=== PATIENT | male | born 1955 | race Caucasian/White ===

== ENCOUNTER 2020-02-12 11:23 | Outpatient (REF) | payer OTHER, SELFPAY ==
[2020-02-12 15:24] LABS: Prostate Specific Antigen 16.94 ng/mL (<0.05-4.0)
[2020-02-18 10:27] LABS: Testosterone, Total 94 ng/dL (250-1100)
== END 2020-02-12 11:24 | disposition home or self-care (01) ==
LOC: HO.HMGCLDS 11:23
PROVIDERS: Visit Provider Urology
DX: Z20.828 Contact with and (suspected) exposure to other viral communicable diseases (principal)
CPT/HCPCS: 84153; 84403

== ENCOUNTER → 2020-02-27 11:41 | Outpatient (BNVA) | payer OTHER, SELFPAY | PROVIDERS: PCP Internal Medicine; Visit Provider Urology | DX: C61 Malignant neoplasm of prostate (principal); R97.21 Rising PSA following treatment for malignant neoplasm of prostate | CPT/HCPCS: Q3014 ==

== ENCOUNTER 2020-03-17 10:04 | Outpatient (REF) | payer OTHER, SELFPAY ==
--- NOTE | 2020-03-17 10:24 | CT_ITS ---
EXAMINATION: CT ABDOMEN AND PELVIS WITHOUT CONTRAST CLINICAL INFORMATION: Rising PSA following treatment for malignant neoplasm of prostate. COMPARISON: CT abdomen and pelvis 08/25/2018. TECHNIQUE: Multidetector volumetric imaging was performed from the superior aspect of the liver through the pubic symphysis. Sagittal and coronal reformatted images were obtained on the technologist's workstation. This CT examination was performed using dose optimization techniques as appropriate, variously including the following: *Automated exposure control *Adjustment of mA and/or kV according to patient size (this includes techniques or standardized protocols for targeted exams where dose is matched to indication/reason for exam; i.e. extremities or head) *Use of iterative reconstruction technique DLP: 907 mGy-cm FINDINGS: LUNG BASES: The lung bases are clear. The heart size is normal. Mild atherosclerotic calcification of mitral and aortic valve is noted. No pericardial effusion seen. LIVER, GALLBLADDER, AND BILIARY TREE: The liver is normal in size, shape, and attenuation. No focal hepatic lesion or biliary ductal dilatation is present. The gallbladder is unremarkable with no evidence of radiopaque gallstones, gallbladder wall thickening, or obvious pericholecystic inflammatory changes. PANCREAS: Unremarkable. SPLEEN: Unremarkable. ADRENAL GLANDS: The 2 lesions in the left adrenal gland. The lesion along the medial limb measures 3.4 x 1.9 x 3.5 cm and 5.2 Hounsfield units. The left adrenal gland lateral limb lesion measures 1.4 x 1.3 x 2.0 cm and 14 Hounsfield units. The right adrenal gland appears unremarkable. KIDNEYS AND URETERS: The kidneys are normal in size, shape, and attenuation. No hydronephrosis, hydroureter, or calculi seen. No perinephric stranding. There is vascular calcification in the right hilum. There are peripelvic cysts upper, mid and lower pole. BLADDER: Unremarkable. GASTROINTESTINAL TRACT: There is diffuse sigmoid and scattered rest of the colon diverticulosis without mural thickening or pericolic fat stranding. The small-bowel loops are normal caliber. The appendix is not seen. No free air or free fluid seen. ABDOMINAL WALL: There are periumbilical small hernias containing intraperitoneal fat. LYMPH NODES: Normal. VASCULAR: Unremarkable. PELVIC VISCERA: No free air or free fluid seen. There are small maura seen in the prostate gland likely from previous intervention. The prostate gland appears to be normal size. The periprostatic fat planes are preserved. OSSEOUS STRUCTURES: There are degenerative disc changes L4-L5 and L5-S1 disc levels with vacuum disc phenomena and ventral and posterior spondylosis. There are inferior endplate Schmorl's node L4, L3 vertebra. No lytic or sclerotic process seen. CT/CT abdomen pelvis wo con IMPRESSION: Left adrenal gland 2 lesions, the larger lesion medial limb measuring 3.5 cm, previously it measured 2.4 cm. The lateral limb lesion measures 2.0 cm and is stable. Diffuse sigmoid and scattered rest of the colon diverticulosis without diverticulitis. Peripelvic left renal cysts.
== END 2020-03-17 10:05 | disposition home or self-care (01) ==
LOC: HO.CT 10:04
PROVIDERS: Visit Provider Urology
DX: R97.21 Rising PSA following treatment for malignant neoplasm of prostate (principal); N40.1 Benign prostatic hyperplasia with lower urinary tract symptoms; N13.8 Other obstructive and reflux uropathy
CPT/HCPCS: 36415; 74176; 84153

== ENCOUNTER → 2020-03-25 09:24 | Outpatient (REF) | payer OTHER, SELFPAY ==
--- NOTE | 2020-03-25 09:27 | NM_ITS ---
EXAMINATION: NM BONE SCAN OF THE WHOLE BODY CLINICAL INFORMATION: Malignant neoplasm of prostate. COMPARISON: The previous bone scan dated 08/29/2018 is available for comparison. No recent radiographs are available for comparison. The diagnostic CT scan of the abdomen and pelvis, dated 03/17/2020, is available for comparison. TECHNIQUE: Multiple gamma scintillation camera images of the whole body were performed 2.5 hours following the intravenous administration of 40 mCi Tc-99m MDP. FINDINGS: In the head, there is mildly increased activity in the paranasal regions, with a focus slightly more prominent to the left of midline, likely related to sinus disease. In the thoracic cage and upper extremities, there is mildly increased activity acromioclavicular and sternoclavicular joints bilaterally and in the lateral subacromial region of the right humeral head. There is also mildly increased activity in the left glenohumeral articulation. In the spine, there is mildly increased activity in the right posterior elements at L4-L5, and there is mildly increased activity in the left side of the mid cervical spine, likely in the posterior elements also, all probably due to facet arthropathy. In the pelvis, no significant abnormalities are present. In the lower extremities, there is mildly increased activity in the medial malleolus of the left ankle and in mild foci in the proximal to mid feet bilaterally. No other definite bony abnormalities are noted. The urinary bladder and faint visualization of both kidneys are noted. Compared to the previous scan dated 08/29/2018, there has not been a significant change. NM/TX bone scan whole body IMPRESSION: Mild nonspecific abnormalities are noted as described above and these are all likely arthritic or traumatic in etiology. None of these abnormalities is strongly suspicious for metastatic disease.
== END ==
LOC: HO.NUCMED 09:24
PROVIDERS: Visit Provider Urology
DX: R97.21 Rising PSA following treatment for malignant neoplasm of prostate (principal); C61 Malignant neoplasm of prostate; C79.51 Secondary malignant neoplasm of bone
CPT/HCPCS: 78306; A9503

== ENCOUNTER → 2020-04-03 11:23 | Outpatient (BNVA) | payer OTHER, SELFPAY | PROVIDERS: Visit Provider Urology | DX: R97.21 Rising PSA following treatment for malignant neoplasm of prostate (principal); Z85.46 Personal history of malignant neoplasm of prostate | CPT/HCPCS: Q3014 ==

== ENCOUNTER → 2020-04-15 10:52 | Outpatient (BNVA) | payer OTHER, SELFPAY | PROVIDERS: Visit Provider Urology | DX: R97.21 Rising PSA following treatment for malignant neoplasm of prostate (principal); C61 Malignant neoplasm of prostate | CPT/HCPCS: 96402; 99212; J9217 ==

== ENCOUNTER 2020-05-09 07:47 | Outpatient (REF) | payer OTHER, SELFPAY ==
[2020-05-09 12:19] LABS: Prostate Specific Antigen 21.97 ng/mL (<0.05-4.0)
[2020-05-15 16:52] LABS: Testosterone, Total 20 ng/dL (250-1100)
== END 2020-05-09 07:48 | disposition home or self-care (01) ==
LOC: HO.HMGCLDS 07:47
PROVIDERS: Visit Provider Urology
DX: R97.21 Rising PSA following treatment for malignant neoplasm of prostate (principal); N40.1 Benign prostatic hyperplasia with lower urinary tract symptoms; N13.8 Other obstructive and reflux uropathy; Z12.5 Encounter for screening for malignant neoplasm of prostate
CPT/HCPCS: 36415; 84153; 84403

== ENCOUNTER → 2020-05-27 10:58 | Outpatient (BNVA) | payer OTHER, SELFPAY | PROVIDERS: Visit Provider Urology | DX: Z13.89 Encounter for screening for other disorder (principal) | CPT/HCPCS: 99212 ==

== ENCOUNTER 2020-06-23 09:29 | Outpatient (REF) | payer OTHER, SELFPAY ==
--- NOTE | ~2020-06-23 | US_ITS ---
EXAMINATION: US SCROTUM CLINICAL INFORMATION: Testicular pain. Malignant neoplasm of prostate. COMPARISON: None TECHNIQUE: A sonogram of the scrotum was performed assessing koehler-scale appearance and color Doppler flow. Spectral Doppler analysis of the arterial and venous flow were performed in the testes bilaterally. FINDINGS: RIGHT: Right testicle measures 4.0 x 2.0 x 2.6 cm, volume 10.9 mL. No focal testicular parenchymal lesions are visualized. Spectral Doppler analysis of the arterial and venous flow is normal in the right testis. Right epididymal head is normal in size. There are 3 epididymal head cysts, largest measuring 6 x 5 x 5 mm. No right varicocele is seen. There is a small right hydrocele. Right epididymal Doppler flow is normal. LEFT: Left testicle measures 4.0 x 1.8 x 2.5 cm, volume 10.4 mL. No focal testicular parenchymal lesions are visualized. Spectral Doppler analysis of the arterial and venous flow is normal in the left testis. Left epididymal head is normal in size. No left hydrocele or varicocele is seen. Left epididymal Doppler flow is normal. US/US scrotum IMPRESSION: Small right epididymal head cysts. Small right hydrocele.
[2020-06-23 12:13] LABS: Prostate Specific Antigen 47.29 ng/mL (<0.05-4.0)
[2020-06-27 14:51] LABS: Testosterone, Total 132 ng/dL (250-1100)
== END 2020-06-23 09:30 | disposition home or self-care (01) ==
LOC: HO.HMGCX 09:29
PROVIDERS: Visit Provider Urology
DX: Z12.5 Encounter for screening for malignant neoplasm of prostate (principal); C61 Malignant neoplasm of prostate; N40.1 Benign prostatic hyperplasia with lower urinary tract symptoms; N13.8 Other obstructive and reflux uropathy; N50.819 Testicular pain, unspecified
CPT/HCPCS: 36415; 76870; 84153; 84403

== ENCOUNTER → 2020-06-26 08:44 | Outpatient (BNVA) | payer OTHER, SELFPAY | PROVIDERS: Visit Provider Urology | DX: Z13.89 Encounter for screening for other disorder (principal) | CPT/HCPCS: Q3014 ==

== ENCOUNTER 2020-09-29 10:19 | Outpatient (REF) | payer OTHER, SELFPAY ==
[2020-09-29 12:50] LABS: Prostate Specific Antigen < 0.05 ng/mL (<0.05-4.0)
== END 2020-09-29 10:20 | disposition home or self-care (01) ==
LOC: HO.HMGCLDS 10:19
PROVIDERS: Visit Provider Urology
DX: Z12.5 Encounter for screening for malignant neoplasm of prostate (principal); N40.1 Benign prostatic hyperplasia with lower urinary tract symptoms; N13.8 Other obstructive and reflux uropathy; C61 Malignant neoplasm of prostate
CPT/HCPCS: 36415; 84153

== ENCOUNTER → 2020-10-07 10:06 | Outpatient (BNVA) | payer OTHER, SELFPAY | PROVIDERS: PCP Internal Medicine; Visit Provider Urology | DX: R97.21 Rising PSA following treatment for malignant neoplasm of prostate (principal); C61 Malignant neoplasm of prostate | CPT/HCPCS: 96402; 99212; J9217 ==

== ENCOUNTER 2020-12-01 08:14 | Inpatient (IN) | payer OTHER, SELFPAY ==
[2020-12-01] VITALS (13 sets, daily range): BP systolic 120–177; BP diastolic 61–96; PULSE 76–93; RESP 16–18; TEMP 36.5–37.4; O2SAT 94–99; BMI 33.9
--- NOTE | ~2020-12-01 | CT_ITS ---
EXAMINATION: CT ABDOMEN AND PELVIS WITH CONTRAST CLINICAL INFORMATION: Right lower quadrant pain. COMPARISON: CT abdomen and pelvis 03/17/2020 TECHNIQUE: Multidetector volumetric images were obtained from the superior aspect of the liver through the pubic symphysis following administration 85 mL of Omnipaque 350 intravenous contrast. Sagittal and coronal reformatted images were obtained on the technologist's workstation. Oral contrast: No This CT examination was performed using dose optimization techniques as appropriate, variously including the following: *Automated exposure control *Adjustment of mA and/or kV according to patient size (this includes techniques or standardized protocols for targeted exams where dose is matched to indication/reason for exam; i.e. extremities or head) *Use of iterative reconstruction technique DLP: 797 mGy-cm FINDINGS: LUNG BASES: There is a right basilar atelectasis. The heart size is normal. LIVER, GALLBLADDER, AND BILIARY TREE: The liver is normal in size, shape, and attenuation. No focal hepatic lesion or biliary ductal dilatation is present. The gallbladder is unremarkable with no evidence of radiopaque gallstones, gallbladder wall thickening, or obvious pericholecystic inflammatory changes. PANCREAS: Unremarkable. SPLEEN: Unremarkable. ADRENAL GLANDS: There are 2 left adrenal lesions the largest along the medial limb measures 3.7 x 2.3 cm and 29 Hounsfield units. The smaller lesion lateral limb measures 1.8 x 1.4 cm and 44 Hounsfield units. The right adrenal gland appears normal. KIDNEYS AND URETERS: The kidneys are normal in size, shape, and attenuation. No hydronephrosis, hydroureter, or calculi seen. No perinephric stranding. BLADDER: The bladder is nondistended and appears unremarkable. GASTROINTESTINAL TRACT: There is diffuse colonic diverticulosis without diverticulitis. There is scattered stool in colon. The appendix is diffusely enlarged without appendicolith. It measures 1.5 cm in diameter with adjacent. There is angela appendix fat stranding suggestive of acute appendicitis. There is no abscess. The small bowel loops are normal caliber. No free air or free fluid seen. ABDOMINAL WALL: No significant hernia is appreciated. LYMPH NODES: Normal. VASCULAR: There is mild atherosclerosis of abdominal aorta without aneurysmal dilatation. Origin of celiac, superior mesenteric and inferior mesenteric artery appears unremarkable. PELVIC VISCERA: Unremarkable. OSSEOUS STRUCTURES: There are degenerative disc changes L4-L5 and L5-S1 disc levels with endplate Schmorl's node L3, L4-L5 vertebra. Vacuum disc phenomena with spondylosis seen at the L5-S1 disc levels with spondylosis of throughout the ventral lumbar spine. CT/CT abdomen pelvis w con IMPRESSION: Findings suggestive of acute appendicitis. No evidence of appendicolith, abscess or free air. No bowel obstruction. Diffuse colonic diverticulosis without diverticulitis. Results were called by phone to Carrol SPENCER in the ER at 11:17 AM
[2020-12-01] MEDS: 0.9 % Sodium Chloride 1,000 ML 999 ML IVCONT (09:15)
[2020-12-01 09:16] LABS: MANUAL DIFF FLAG NO
[2020-12-01 09:18] LABS: Basophils Percent Auto 0.2 % (0-2); Eosinophils Absolute Auto 0.1 X10*3/uL (0.0-0.4); Eosinophils Percent Auto 0.6 % (0-4); Hematocrit 39.1 % (42-52); Hemoglobin 13.1 g/dl (14.0-18.0); Imm Gran Abs Auto 0.07 X10*3/uL (0.00-0.03); Imm Gran Pct Auto 0.6 % (0.0-0.4); Lymphocytes Percent Auto 8.2 % (20-40); Mean Corpuscular HGB Conc 33.5 g/dl (31.0-36.0); Mean Corpuscular Hemoglobin 28.8 pg (27.0-33.0); Mean Corpuscular Volume 85.9 fL (80-98); Monocytes Absolute Auto 0.9 X10*3/uL (0.1-1.2); Monocytes Percent Auto 7.1 % (2-11); Neutrophils Absolute Auto 10.3 X10*3/uL (2.0-8.3); Neutrophils Percent Auto 83.3 % (45-73); Platelet Count 229 X10*3/uL (160-400); Red Blood Count 4.55 X10*6/uL (4.60-5.80); Red Cell Distribution Width 14.2 % (11.0-16.0); White Blood Count 12.4 X10*3/uL (4.8-10.8)
[2020-12-01] MEDS: ondansetron HCL 4 MG/2 ML VIAL IVPUSH (09:19)
[2020-12-01 09:47] LABS: Lipase 9 U/L (8-78)
[2020-12-01 09:48] LABS: Alanine Aminotransferase 12 U/L (0-40); Albumin Level 4.3 g/dL (3.5-5.0); Alkaline Phosphatase 66 U/L (39-117); Anion Gap 14 (12-20); Aspartate Amino Transferase 12 U/L (5-37); Bilirubin Direct 0.3 mg/dL (0.0-0.5); Bilirubin Total 0.6 mg/dL (0.0-1.0); Blood Urea Nitrogen 9 mg/dL (9-16); Calcium 9.6 mg/dL (8.4-10.2); Carbon Dioxide 23 mmol/L (22-29); Chloride 106 mmol/L (96-108); Creatinine Clr Calc Pharmacy 136.7; Estimated Glomerular Filt Rate > 60; Glucose Random 110 mg/dL (60-115); Magnesium 2.2 mg/dL (1.6-2.6); Potassium 4.2 mmol/L (3.3-5.1); Sodium 139 mmol/L (135-145); Total Protein 6.6 g/dL (6.5-8.0)
[2020-12-01] MEDS: iohexoL 350 MG/ML 100 ML INFUS..BTL 85 ML IV (10:42)
--- NOTE | 2020-12-01 11:06 | PC.NURSE ---
Pt resting in NAD. Awaiging CT scan results. Pt aware that this is what we are waiting for at this time. VSS
--- NOTE | 2020-12-01 11:12 | ED.ABDPAIN ---
HPI - Abdominal Pain General Chief Complaint: Abdominal Pain Stated Complaint: thigh pain Time Seen by Provider: 12/01/20 08:51 Source: patient Mode of arrival: ambulatory History of Present Illness HPI narrative: 65-year-old male with past medical history of COPD, bladder outflow obstruction, nocturia, prostate CA s/p XRT completed in 2019 currently on Xtandi to the ED complaining of RLQ abdominal pain since last night with associated nausea and lightheadedness from pain. Reports lower abdominal pressure and mild dysuria. Denies vomiting, diarrhea/constipation, fever, chills, urinary frequency, flank pain MD elicited complaint: abdominal pain Related Data Home Medications Medication Instructions Recorded Confirmed acetaminophen 500 mg tablet 1,000 mg PO Q8H PRN 02/27/20 apixaban 5 mg tablet 5 mg PO BID 02/27/20 dutasteride 0.5 mg capsule 0.5 mg PO DAILY 02/27/20 ezetimibe 10 mg tablet 10 mg PO DAILY 02/27/20 fluocinonide 0.05 % topical TOPICAL BID PRN 02/27/20 ointment rosuvastatin 10 mg tablet 10 mg PO DAILY 02/27/20 tamsulosin 0.4 mg capsule 0.4 mg PO DAILY 02/27/20 triamcinolone acetonide 0.025 % appl TOPICAL BID 02/27/20 topical cream umeclidinium 62.5 mcg-vilanterol ea INHALATION 02/27/20 25 mcg/actuation powdr for inhalation albuterol sulfate 90 mcg/actuation 0 mcg INHALATION 05/27/20 aerosol inhaler ammonium lactate 12 % topical cream 1 appl TOPICAL BID 05/27/20 doxycycline hyclate 100 mg tablet 100 mg PO BID 05/27/20 fluticasone 250 mcg-salmeterol 50 1 ea INHALATION BID 05/27/20 mcg/dose blistr powdr for inhalation loratadine 10 mg tablet 10 mg PO DAILY 05/27/20 triamcinolone acetonide 0.1 % TOPICAL 05/27/20 topical ointment umeclidinium 62.5 mcg/actuation 1 inh INHALATION DAILY 05/27/20 blister powder for inhalation Previous Rx's Medication Instructions Recorded bicalutamide 50 mg tablet 50 mg PO DAILY 30 Days #30 tab 04/29/20 enzalutamide 40 mg capsule (Xtandi) 160 mg PO DAILY 90 Days #360 cap 04/20/21 tamsulosin 0.4 mg capsule 0.8 mg PO DAILY 90 Days #180 cap 10/07/20 Allergies Allergy/AdvReac Type Severity Reaction Status Date / Time No Known Allergies Allergy Verified 10/07/20 10:40 Review of Systems Review of Systems Constitutional: No Fever, No Fatigue, No Malaise ENT/Mouth: No Ear Pain, No Nasal Congestion,No sore throat, No Rhinorrhea, No Swallowing Difficulty Eyes: No Eye Pain, No Swelling, No Discharge Cardiovascular: No Chest Pain, No SOB, No Orthopnea, No Edema, No Palpitations Respiratory: No Cough, No Dyspnea Gastrointestinal: + Nausea, No Vomiting, No Diarrhea, No Constipation, + Abdominal pain Genitourinary: + Dysuria, No Urinary Frequency, No Hematuria, No Flank Pain, No Urinary Flow Changes Musculoskeletal: No joint pain, No Myalgias, No Joint Swelling Skin: No Skin Lesions, No rash Neuro: No Weakness, No Numbness, N No Headache Yes all other systems are reviewed and are negative Physical Exam Vital Signs: Vital Signs: Last Vital Signs Temp 97.9 F 12/01/20 08:22 Pulse 77 12/01/20 11:03 Resp 18 12/01/20 11:03 BP 140/79 H 12/01/20 11:03 Pulse Ox 96 12/01/20 11:03 Body Mass Index 33.9 Const: General: cooperative and healthy appearing Orientation/consciousness: patient oriented x3 Limitations: no limitations HENMT: Head: Yes normal to inspection Ears: hearing grossly normal bilaterally General nose exam: Normal external nose present Face and sinus: Yes normal facial exam Eyes: General: appearance normal, both eyes and all related structures EOM: EOMs intact bilaterally Neck: Neck: Yes normal visual inspection and Yes no meningeal signs Resp: Effort & Inspection: normal respiratory effort and no respiratory distress Cardio: Rate: regular rate GI: Inspection: Yes normal to inspection Palpation (GI): Soft to palpation, Tenderness to palpation present (GI) in the RLQ, no guarding and not rigid : General: Yes no CVA tenderness Back/Spine/Pelvis: Back: no CVA tenderness Skin: Rashes: no rashes Wounds: no wounds Neuro: General: patient oriented x3 and no meningeal signs Gait exam (Neuro): Normal gait present Extrem: General: Yes normal to inspection Course Course Course Narrative: -mild leukocytosis of 12.4, H&H stable, labs otherwise unremarkable -UA negative -1127--CT abdomen pelvis w con IMPRESSION: Findings suggestive of acute appendicitis. No evidence of appendicolith, abscess or free air. No bowel obstruction. ? Diffuse colonic diverticulosis without diverticulitis. >> case discussed with surgery Dr. Dillon, plan is for admission MDM - Abdominal Pain MDM Narrative Medical decision making narrative: 65-year-old male with past medical history of COPD, bladder outflow obstruction, nocturia, prostate CA s/p XRT completed in 2019 currently on Xtandi to the ED complaining of RLQ abdominal pain since last night with associated nausea and lightheadedness from pain. On exam VSS, NAD, nontoxic appearing, abdomen soft the RLQ TTP, no rebound or guarding, no CVAT. Concern for appendicitis vs ? Renal stone. Low concern for pyelo, diverticulitis, or testicular torsion/orchitis/epididymitis Plan: Labs, UA, CT AP, IVF, symptomatic treatment, reassess Medical Records Attestation: I reviewed the patient's medical records. Lab Data Attestation: I reviewed the patient's lab results. Result diagrams: 12/01/20 09:13 12/01/20 09:13 Labs: Lab Results 12/01/20 12/01/20 12/01/20 Range/Units 09:12 09:13 09:13 WBC 12.4 H (4.8-10.8) X10*3/uL RBC 4.55 L (4.60-5.80) X10*6/uL Hgb 13.1 L (14.0-18.0) g/dl Hct 39.1 L (42-52) % MCV 85.9 (80-98) fL MCH 28.8 (27.0-33.0) pg MCHC 33.5 (31.0-36.0) g/dl RDW 14.2 (11.0-16.0) % Plt Count 229 (160-400) X10*3/uL MPV 10.0 (9.4-12.4) fL Immature Gran % (Auto) 0.6 H (0.0-0.4) % Neut % (Auto) 83.3 H (45-73) % Lymph % (Auto) 8.2 L (20-40) % [place] % (Auto) 7.1 (2-11) % Eos % (Auto) 0.6 (0-4) % Baso % (Auto) 0.2 (0-2) % Lymph # (Auto) 1.0 L (1.2-4.9) X10*3/uL [place] # (Auto) 0.9 (0.1-1.2) X10*3/uL Eos # (Auto) 0.1 (0.0-0.4) X10*3/uL Baso # (Auto) 0.0 (0.0-0.2) X10*3/uL Abs Immat Gran (auto) 0.07 H (0.00-0.03) X10*3/uL Absolute Neuts (auto) 10.3 H (2.0-8.3) X10*3/uL Absolute Nucleated RBC 0.000 (0.0-0.012) X10*3/uL Nucleated RBC % (auto) 0.0 (0.0-0.2) /100WBC Sodium 139 (135-145) mmol/L Potassium 4.2 (3.3-5.1) mmol/L Chloride 106 (96-108) mmol/L Carbon Dioxide 23 (22-29) mmol/L Anion Gap 14 (12-20) BUN 9 (9-16) mg/dL Creatinine 0.70 (0.5-1.4) mg/dL Estim Creat Clear Calc 136.7 Estimated GFR > 60 Random Glucose 110 (60-115) mg/dL Calcium 9.6 (8.4-10.2) mg/dL Magnesium 2.2 (1.6-2.6) mg/dL Total Bilirubin 0.6 (0.0-1.0) mg/dL Direct Bilirubin 0.3 (0.0-0.5) mg/dL AST 12 (5-37) U/L ALT 12 (0-40) U/L Alkaline Phosphatase 66 (39-117) U/L Total Protein 6.6 (6.5-8.0) g/dL Albumin 4.3 (3.5-5.0) g/dL Lipase 9 (8-78) U/L Urine Color Urine Appearance Urine pH (5.0-8.0) Ur Specific Leon (1.005-1.025) Urine Protein (NEG-TRACE) MG/DL Urine Glucose (UA) (NEG) MG/DL Urine Ketones (NEG) MG/DL Urine Blood (NEG) Urine Nitrite (NEG) Ur Leukocyte Esterase (NEG) 12/01/20 Range/Units 11:05 WBC (4.8-10.8) X10*3/uL RBC (4.60-5.80) X10*6/uL Hgb (14.0-18.0) g/dl Hct (42-52) % MCV (80-98) fL MCH (27.0-33.0) pg MCHC (31.0-36.0) g/dl RDW (11.0-16.0) % Plt Count (160-400) X10*3/uL MPV (9.4-12.4) fL Immature Gran % (Auto) (0.0-0.4) % Neut % (Auto) (45-73) % Lymph % (Auto) (20-40) % [place] % (Auto) (2-11) % Eos % (Auto) (0-4) % Baso % (Auto) (0-2) % Lymph # (Auto) (1.2-4.9) X10*3/uL [place] # (Auto) (0.1-1.2) X10*3/uL Eos # (Auto) (0.0-0.4) X10*3/uL Baso # (Auto) (0.0-0.2) X10*3/uL Abs Immat Gran (auto) (0.00-0.03) X10*3/uL Absolute Neuts (auto) (2.0-8.3) X10*3/uL Absolute Nucleated RBC (0.0-0.012) X10*3/uL Nucleated RBC % (auto) (0.0-0.2) /100WBC Sodium (135-145) mmol/L Potassium (3.3-5.1) mmol/L Chloride (96-108) mmol/L Carbon Dioxide (22-29) mmol/L Anion Gap (12-20) BUN (9-16) mg/dL Creatinine (0.5-1.4) mg/dL Estim Creat Clear Calc Estimated GFR Random Glucose (60-115) mg/dL Calcium (8.4-10.2) mg/dL Magnesium (1.6-2.6) mg/dL Total Bilirubin (0.0-1.0) mg/dL Direct Bilirubin (0.0-0.5) mg/dL AST (5-37) U/L ALT (0-40) U/L Alkaline Phosphatase (39-117) U/L Total Protein (6.5-8.0) g/dL Albumin (3.5-5.0) g/dL Lipase (8-78) U/L Urine Color YELLOW Urine Appearance CLEAR Urine pH 5.5 (5.0-8.0) Ur Specific Leon >= 1.030 H (1.005-1.025) Urine Protein NEG (NEG-TRACE) MG/DL Urine Glucose (UA) NEG (NEG) MG/DL Urine Ketones NEG (NEG) MG/DL Urine Blood NEG (NEG) Urine Nitrite NEG (NEG) Ur Leukocyte Esterase NEG (NEG) Discharge Plan Discharge Clinical Impression: Acute appendicitis Patient Disposition: Admitted As Inpatient Prescriptions: No Action bicalutamide 50 mg tablet 50 mg PO DAILY 30 Days Qty: 30 RF: 2 Xtandi 40 mg capsule 160 mg PO DAILY 90 Days Qty: 360 RF: 3 tamsulosin 0.4 mg capsule 0.8 mg PO DAILY 90 Days Qty: 180 RF: 2 rosuvastatin 10 mg tablet 10 mg PO DAILY RF: 0 fluocinonide 0.05 % ointment topical BID PRNRF: 0 acetaminophen 500 mg tablet 1,000 mg PO Q8H PRN (Reason: pain) RF: 0 Anoro Ellipta 62.5-25 mcg/actuation blister with device inhalation RF: 0 triamcinolone acetonide 0.025 % cream topical BID RF: 0 Eliquis 5 mg tablet 5 mg PO BID RF: 0 dutasteride 0.5 mg capsule 0.5 mg PO DAILY RF: 0 tamsulosin 0.4 mg capsule 0.4 mg PO DAILY RF: 0 ezetimibe 10 mg tablet 10 mg PO DAILY RF: 0 PMFSH Past Medical History Attestation statement: The following information was validated with the patient. Medical History Bladder outlet obstruction COPD (chronic obstructive pulmonary disease) Nocturia Weak urinary stream Surgical History History of prostate biopsy History of prostate biopsy Family History Family History Father No problems noted. Mother No problems noted. Social History Social History Alcohol intake: never Patient Tobacco Use Status: Never used Tobacco Use of substances other than those prescribed or required for medical reasons: No Advance Directives: No Advance Directives Information Provided: No
[2020-12-01 11:19] LABS: Appearance Urine CLEAR; Color Urine YELLOW; Glucose Urine UA NEG (NEG); Leukocyte Esterase Urine NEG (NEG); Nitrite Urine NEG (NEG); PH 5.5 (5.0-8.0); Specific Gravity - Urine >= 1.030 (1.005-1.025); Urine Blood NEG (NEG); Urine Ketones NEG (NEG); Urine Protein NEG (NEG-TRACE)
[2020-12-01] MEDS: Morphine Sulfate 2 MG/ML CARTRIDGE IVPUSH (11:40)
[2020-12-01 12:43] LABS: COVID-19 Test Negative (Negative); IDNOW Serial# 08D9AD1C
--- NOTE | 2020-12-01 13:01 | P.HPGS_ITS ---
History of Present Illness History of Present Illness Date of Service: 12/01/20 Chief complaint: Right lower quadrant abdominal pain Narrative: Ted Reed is a 65 year old male with a past medical history significant for atrial fibrillation on Eliquis, hypercholesterolemia, COPD, and prostate cancer status post treatment with radiation therapy who presents to the emergency department with 4 day history of having abdominal discomfort that he thought was an ?a stomach ache?. He reports that his pain increased and became a 6 to 8/10 and the pain localized to the right lower quadrant yesterday afternoon. He reports having poor appetite over the past 4 days. Last meal was yesterday around noon. He denies any change in urinary habits or bowel habits. He denies any fever or chills or chest pain. Patient has mild baseline shortness of breath secondary to his history of COPD. Patient came to the emergency department was evaluated with blood work and showed a white blood cell count of 12.4. Patient underwent a CT scan abdomen and pelvis which showed a dilated appendix to 1.5 cm in size with associated periappendiceal stranding consistent with acute appendicitis. Patient also has 2 small nodules on the left adrenal gland which may be related to his history of prostate cancer. Patient is being followed by Dr. Dunn from Urology regarding prostate cancer. Review of Systems Constitutional: Constitutional: Denies chills, Denies difficulty sleeping, Denies excessive sweating, Denies fatigue, Denies fever(s), Denies headache(s), Denies night sweats, Denies weakness and Denies weight loss Eyes: Eyes: Denies blurry vision, Denies diplopia and Denies eye discharge ENT: Reports Normal hearing present, Denies change in voice, Denies headache(s), Denies neck mass, Denies sore throat, Denies throat swelling and Denies tongue swelling Cardiovascular: Cardiovascular: Denies chest pain, Denies chest pain at rest, Denies chest pain with activity, Denies edema, Denies leg edema and Reports dyspnea on exertion Respiratory: Respiratory: Reports cough, Reports excessive phlegm production, Reports dyspnea on exertion, Denies stridor and Reports wheezing Gastrointestinal: Gastrointestinal: Reports abdominal pain (Right lower quadrant), Denies melena, Denies bloating, Denies hematochezia, Denies constipation, Denies heartburn, Denies nausea and Denies vomiting Genitourinary: Genitourinary: Denies hematuria, Denies dysuria, Reports nocturia, Reports urinary frequency, Denies urinary hesitancy, Denies urinary incontinence and Denies urinary urgency Musculoskeletal: Musculoskeletal: Denies back pain, Reports arthralgias and Denies muscle weakness Integumentary/Breasts: Skin/Breast: Denies breast swelling, Denies breast pain, Denies breast mass, Denies change in pigmentation, Denies new lesions and Denies rash Neurologic: Reports Normal hearing present, Denies confusion, Denies headache(s), Denies lack of coordination, Denies focal weakness, Denies paresthesias and Denies weakness Psychiatric: Psychiatric: Denies anxiety, Denies confusion and Denies depression Endocrine: Endocrine: Denies cold intolerance, Denies excessive sweating and Denies fatigue Hematologic/Lymphatic: Hematologic/Lymphatic: Denies easy bleeding, Denies easy bruising and Denies lymphadenopathy Allergic/Immunologic: Allergic/Immunologic: Denies urticaria, Denies throat swelling, Denies tongue swelling and Reports wheezing PMFSH Past Medical History Medical History (Updated 12/01/20 @ 13:08 by Magdalena Alcazar MD) Atrial fibrillation Bladder outlet obstruction COPD (chronic obstructive pulmonary disease) Current use of fdc anticoagulation History of prostate cancer History of radiation therapy Hypercholesterolemia Nocturia Pre-diabetes Weak urinary stream Functional capacity: independent ambulation Family History Family History (Updated 12/01/20 @ 13:10 by Magdalena Alcazar MD) Father Brain cancer Mother Pancreatic cancer Brother Drug overdose Brother Drug overdose Brother Pancreatic cancer Brother No problems noted. Brother No problems noted. Sister No problems noted. Surgical History Surgical History (Updated 12/01/20 @ 13:18 by Magdalena Alcazar MD) H/O tooth extraction History of prostate biopsy Social History Social History (Updated 12/01/20 @ 13:12 by Magdalena Alcazar MD) Household Members: None Housing: Apartment Housing Other:: Lives in a 1 room efficiency Are you a primary director career services to a significant other at home: No Do you presently have visiting nurse or other home services: No Alcohol intake: former Year quit: 2019 Patient Tobacco Use Status: Former Tobacco user Quit Date: 2019 Years Smoked: 38 Use of substances other than those prescribed or required for medical reasons: No Advance Directives: No Advance Directives Information Provided: No Meds Allergies Allergy/AdvReac Type Severity Reaction Status Date / Time No Known Allergies Allergy Verified 10/07/20 10:40 Active Medications: Current Medications Pharmacy Consult (Consult Rx Perform Med Rec) 1 each MISCELLANE ONCE PRN PRN Reason: Consult order Home Medications Medication Instructions Recorded Confirmed Last Taken Type apixaban 5 mg tablet 5 mg PO BID 02/27/20 12/01/20 11/30/20 History albuterol sulfate 90 mcg/actuation 1 puff INHALATION Q6H PRN 05/27/20 12/01/20 Unknown History aerosol inhaler fluticasone 250 mcg-salmeterol 50 1 inh INHALATION BID 05/27/20 12/01/20 12/01/20 History mcg/dose blistr powdr for inhalation umeclidinium 62.5 mcg/actuation 1 inh INHALATION DAILY 05/27/20 12/01/20 12/01/20 History blister powder for inhalation enzalutamide 40 mg capsule (Xtandi) 80 mg PO DAILY 12/01/20 12/01/20 11/30/20 History rosuvastatin 10 mg tablet 10 mg PO DAILY 12/01/20 12/01/20 11/30/20 History Physical Exam Vital Signs: Vital Signs: Last Vital Signs Temp 97.9 F 12/01/20 08:22 Pulse 77 12/01/20 11:03 Resp 18 12/01/20 11:03 BP 140/79 H 12/01/20 11:03 Pulse Ox 96 12/01/20 11:03 Body Mass Index 33.9 Const: General: No confusion Nutritional Appearance: well nourished and obese Orientation/consciousness: No confusion HENMT: Head: Yes normal to inspection, Yes normocephalic and Yes atraumatic Ears: hearing grossly normal bilaterally Mouth: Normal oral and palatal mucosa present Throat: Yes posterior oropharynx normal Eyes: General: appearance normal, both eyes and all related structures Eyelids: Yes eyelids normal EOM: EOMs intact bilaterally Neck: Neck: Yes normal visual inspection, Yes full ROM, Yes trachea midline and Yes no JVD Thyroid: Thyroid normal Lymphatic: no lymphadenopathy noted Resp: Effort & Inspection: normal respiratory effort and able to speak in complete sentences Auscultation: clear to auscultation bilaterally Cardio: Jugular venous distension: no JVD Rate: regular rate Heart sounds: S1 normal heart sound present, S2 normal heart sound present, no click, no gallops and no murmurs GI: Inspection: Yes normal to inspection, No distended and No incision Palpation (GI): Soft to palpation, Tenderness to palpation present (GI) (Right l ower quadrant mild voluntary guarding) in the RLQ and at McBurney's point; Negative for obturator sign negative and Rovsing's sign negative, no guarding, not rigid, no hernias and no masses Percussion: Yes normal to percussion Rectal Exam - Male: Yes deferred Skin: General skin exam: no rashes or lesions noted Neuro: General: No confusion Cranial nerves: Yes Normal hearing present Extrem: General: Yes normal to inspection, Yes full ROM, Yes no clubbing, cyanosis or edema and Yes no calf tenderness Psych: Appearance: grossly normal Mental Status: mental status grossly normal Speech and movement: Normal speech and movement present Results Results Labs: Short CBC 12/01/20 Range/Units 09:13 WBC 12.4 H (4.8-10.8) X10*3/uL Hgb 13.1 L (14.0-18.0) g/dl Hct 39.1 L (42-52) % Plt Count 229 (160-400) X10*3/uL BMP 12/01/20 09:13 Sodium 139 Potassium 4.2 Chloride 106 Carbon Dioxide 23 BUN 9 Creatinine 0.70 Calcium 9.6 Liver Function 12/01/20 Range/Units 09:13 Total Bilirubin 0.6 (0.0-1.0) mg/dL Direct Bilirubin 0.3 (0.0-0.5) mg/dL AST 12 (5-37) U/L ALT 12 (0-40) U/L Alkaline Phosphatase 66 (39-117) U/L Albumin 4.3 (3.5-5.0) g/dL Urine 12/01/20 Range/Units 11:05 Urine Color YELLOW Urine Appearance CLEAR Urine pH 5.5 (5.0-8.0) Ur Specific [place] >= 1.030 H (1.005-1.025) Urine Protein NEG (NEG-TRACE) MG/DL Urine Glucose (UA) NEG (NEG) MG/DL Abdomen CT scan report/results: report reviewed and image reviewed Assessment and Plan (1) Acute appendicitis: Qualifiers: Acute appendicitis type: with localized peritonitis Appendicitis abscess presence: without abscess Appendicitis gangrene presence: without gangrene Appendicitis perforation presence: without perforation Qualified Code(s): K35.30 - Acute appendicitis with localized peritonitis, without perforation or gangrene Status: Acute This is a 65-year-old gentleman who presented to the emergency department with greater than 24 hours of right lower quadrant abdominal pain and a history physical examination laboratory values and CT scan are consistent with acute appendicitis. Patient will be taken to the operating room for laparoscopic possible open appendectomy. Risks benefits and alternatives were discussed with the patient he agrees to proceed. I spent about 45 minutes with this gentleman performed history physical examination, reviewing laboratory values as well as CT scan imaging as well as reading, and documenting. Quality Stroke Does the patient have a stroke diagnosis?: No VTE Prior VTE?: Yes VTE Risk Level:: Surgical - moderate VTE Device Contraindication: N/A - Device Ordered VTE Drug Contraindication: Treatment Not Indicated Procedures Date of Service Date of Service: 12/01/20
[2020-12-01] MEDS: Piperacillin Sodium/Tazobactam 3.375 GM in 0.9 % Sodium Chloride 50 ML IV ×2 (13:23→21:21)
--- NOTE | 2020-12-01 13:24 | PC.NURSE ---
IV abx delated due to delay in obtaining blood cultures r/t difficult stick. 2nf IV line started by other RN. Phlebotomy at bedside for second set blood cultures and Type and screen.
--- NOTE | 2020-12-01 13:25 | PHA.MEDREC ---
Pharmacy Consult ? Medication Reconciliation Pharmacy has completed the medication reconciliation. Per patient, he only takes 2 capsules of enzalutamide, not 4
[2020-12-01 13:52] LABS: INTERNATIONAL NORM RATIO 1.2 (0.9-1.1); Prothrombin Time 14.1 SEC (9.9-13.0)
[2020-12-01 13:55] LABS: Partial Thromboplastin Time 38.1 SEC (24.1-38.0)
[2020-12-01 13:56] LABS: Lactic Acid 0.8 mmol/L (0.5-2.0)
--- NOTE | 2020-12-01 14:14 | HO.ANESPROP2 ---
HPI - Anesthesia Eval Consult details Narrative: 65 yo male patient for laparoscopic appendectomy PMFSH Active Problems Active Problems: All Active Problems (Updated 12/01/20 @ 13:08 by Magdalena Alcazar MD) Acute appendicitis (Acute) Testicle pain (Acute) Rising PSA following treatment for malignant neoplasm of prostate (Acute) Prostate cancer (Acute) ?Paroxysmal atrial fibrillation on eliquis. Last dose 11/30/20 Past Medical History Medical History (Updated 12/01/20 @ 15:01 by Yola Cedillo MD) Atrial fibrillation Bladder outlet obstruction COPD (chronic obstructive pulmonary disease) Current use of emt intermediate anticoagulation History of prostate cancer History of radiation therapy Hypercholesterolemia Nocturia Pre-diabetes Weak urinary stream Functional capacity: independent ambulation Family History Family History Father Brain cancer Mother Pancreatic cancer Brother Drug overdose Brother Drug overdose Brother Pancreatic cancer Brother No problems noted. Brother No problems noted. Sister No problems noted. Family history of problems with anesthesia: No Surgical History Surgical History H/O tooth extraction History of prostate biopsy History of Problems with Anesthesia: No Social History Social History Household Members: None Housing: Apartment Housing Other:: Lives in a 1 room efficiency Are you a primary childcare center director to a significant other at home: No Do you presently have visiting nurse or other home services: No Alcohol intake: former Year quit: 2019 Patient Tobacco Use Status: Former Tobacco user Quit Date: 2019 Years Smoked: 38 Use of substances other than those prescribed or required for medical reasons: No Are you DNR?: No Advance Directives: No Advance Directives Information Provided: No Meds Allergies Allergy/AdvReac Type Severity Reaction Status Date / Time No Known Allergies Allergy Verified 10/07/20 10:40 Active Medications: Current Medications Acetaminophen (Acetaminophen 325 Mg Tablet) 650 mg PO Q6H PRN PRN Reason: Fever >100.4 Diphenhydramine HCl (Diphenhydramine Hcl 25 Mg Tablet) 25 mg PO Q4H PRN PRN Reason: itching Sodium Chloride (Ns) 1,000 mls @ 80 mls/hr IVCONT .[id number] [place] Piperacillin Sod/Tazobactam (Sod 3.375 gm/ Sodium Chloride) 50 mls @ 100 mls/hr IV Q6H [facility] Lactated Ringer's (Lr) 1,000 mls @ 100 mls/hr IVCONT .Q10H [facility] Morphine Sulfate (Morphine Sulfate 2 Mg/Ml Cartridge) 2 mg IVPUSH Q3H PRN; Protocol PRN Reason: Pain, Moderate (Pain Scale 4-6 Morphine Sulfate (Morphine Sulfate 4 Mg/Ml Cartridge) 4 mg IVPUSH Q3H PRN; Protocol PRN Reason: Pain, Severe (Pain Scale 7-10) Non-Formulary Medication (Enzalutamide [Xtandi]) 80 mg PO DAILY [facility] Non-Formulary Medication (Rosuvastatin) 10 mg PO DAILY [facility] Ondansetron HCl (Ondansetron Hcl 4 Mg/2 Ml Vial) 4 mg IVPUSH Q4H PRN PRN Reason: Nausea Oxycodone HCl (Oxycodone Hcl Immed Release 5 Mg Tablet) 5 mg PO Q3H PRN PRN Reason: Pain, Moderate (Pain Scale 4-6 Oxycodone HCl (Oxycodone Hcl Immed Release 5 Mg Tablet) 10 mg PO Q3H PRN PRN Reason: Pain, Severe (Pain Scale 7-10) Pharmacy Consult (Consult Rx Perform Med Rec) 1 each MISCELLANE ONCE PRN PRN Reason: Consult order Sodium Chloride (0.9 % Sodium Chloride Flush 3 Ml Syringe) 3 ml IVFLUSH QSHIFT [facility] Tamsulosin HCl (Tamsulosin Hcl 0.4 Mg Capsule) 0.8 mg PO DAILY [facility] Home Medications Medication Instructions Recorded Confirmed Last Taken Type apixaban 5 mg tablet 5 mg PO BID 02/27/20 12/01/20 11/30/20 History albuterol sulfate 90 mcg/actuation 1 puff INHALATION Q6H PRN 05/27/20 12/01/20 Unknown History aerosol inhaler fluticasone 250 mcg-salmeterol 50 1 inh INHALATION BID 05/27/20 12/01/20 12/01/20 History mcg/dose blistr powdr for inhalation umeclidinium 62.5 mcg/actuation 1 inh INHALATION DAILY 05/27/20 12/01/20 12/01/20 History blister powder for inhalation enzalutamide 40 mg capsule (Xtandi) 80 mg PO DAILY 12/01/20 12/01/20 11/30/20 History rosuvastatin 10 mg tablet 10 mg PO DAILY 12/01/20 12/01/20 11/30/20 History Exam Exam Date and Time: December 01, 2020 1414 Height,Weight and Vital Signs: Height 6 ft Weight 113.398 kg Last Vital Signs Temp 98.3 F 12/01/20 13:58 Pulse 85 12/01/20 13:58 Resp 18 12/01/20 13:58 BP 152/85 H 12/01/20 13:58 Pulse Ox 95 12/01/20 13:58 Pertinent Lab Results Pertinent Lab Results: Laboratory Tests 12/01/20 12/01/20 12/01/20 09:12 09:13 09:13 WBC 12.4 H RBC 4.55 L Hgb 13.1 L Hct 39.1 L MCV 85.9 MCH 28.8 MCHC 33.5 RDW 14.2 Plt Count 229 MPV 10.0 Immature Gran % (Auto) 0.6 H Neut % (Auto) 83.3 H Lymph % (Auto) 8.2 L Murray % (Auto) 7.1 Eos % (Auto) 0.6 Baso % (Auto) 0.2 Lymph # (Auto) 1.0 L Murray # (Auto) 0.9 Eos # (Auto) 0.1 Baso # (Auto) 0.0 Abs Immat Gran (auto) 0.07 H Absolute Neuts (auto) 10.3 H Absolute Nucleated RBC 0.000 Nucleated RBC % (auto) 0.0 PT INR APTT Sodium 139 Potassium 4.2 Chloride 106 Carbon Dioxide 23 Anion Gap 14 BUN 9 Creatinine 0.70 Estim Creat Clear Calc 136.7 Estimated GFR > 60 Random Glucose 110 Lactic Acid Calcium 9.6 Magnesium 2.2 Total Bilirubin 0.6 Direct Bilirubin 0.3 AST 12 ALT 12 Alkaline Phosphatase 66 Total Protein 6.6 Albumin 4.3 Lipase 9 Urine Color Urine Appearance Urine pH Ur Specific [place] Urine Protein Urine Glucose (UA) Urine Ketones Urine Blood Urine Nitrite Ur Leukocyte Esterase COVID-19 ([facility]) COVID-19 Clin Com 12/01/20 12/01/20 12/01/20 11:05 12:13 13:11 WBC RBC Hgb Hct MCV MCH MCHC RDW Plt Count MPV Immature Gran % (Auto) Neut % (Auto) Lymph % (Auto) Murray % (Auto) Eos % (Auto) Baso % (Auto) Lymph # (Auto) Murray # (Auto) Eos # (Auto) Baso # (Auto) Abs Immat Gran (auto) Absolute Neuts (auto) Absolute Nucleated RBC Nucleated RBC % (auto) PT INR APTT Sodium Potassium Chloride Carbon Dioxide Anion Gap BUN Creatinine Estim Creat Clear Calc Estimated GFR Random Glucose Lactic Acid 0.8 Calcium Magnesium Total Bilirubin Direct Bilirubin AST ALT Alkaline Phosphatase Total Protein Albumin Lipase Urine Color YELLOW Urine Appearance CLEAR Urine pH 5.5 Ur Specific [place] >= 1.030 H Urine Protein NEG Urine Glucose (UA) NEG Urine Ketones NEG Urine Blood NEG Urine Nitrite NEG Ur Leukocyte Esterase NEG COVID-19 ([facility]) Negative COVID-19 [employer] [facility] See Note 12/01/20 13:11 WBC RBC Hgb Hct MCV MCH MCHC RDW Plt Count MPV Immature Gran % (Auto) Neut % (Auto) Lymph % (Auto) Murray % (Auto) Eos % (Auto) Baso % (Auto) Lymph # (Auto) Murray # (Auto) Eos # (Auto) Baso # (Auto) Abs Immat Gran (auto) Absolute Neuts (auto) Absolute Nucleated RBC Nucleated RBC % (auto) PT 14.1 H INR 1.2 H APTT 38.1 H Sodium Potassium Chloride Carbon Dioxide Anion Gap BUN Creatinine Estim Creat Clear Calc Estimated GFR Random Glucose Lactic Acid Calcium Magnesium Total Bilirubin Direct Bilirubin AST ALT Alkaline Phosphatase Total Protein Albumin Lipase Urine Color Urine Appearance Urine pH Ur Specific [place] Urine Protein Urine Glucose (UA) Urine Ketones Urine Blood Urine Nitrite Ur Leukocyte Esterase COVID-19 ([facility]) COVID-19 Clin Com Airway Mallampati Class: III TM Dist: >3cm Neck ROM: Full Denture: Upper and Lower Heart: ?Regular Lungs: CTAB Assessment and Plan Assessment Anesthesia Assessment: Anesthesia Plan Discussed and Chart Reviewed Final Anesthetic Review Family History of Problems with Anesthesia: No History of Problems with Anesthesia: No NPO: Yes ASA Class: III Final Preanesthetic Review: No Changes in Pt Med Stat, Meds/Allgs Chart Reviewed, Consent Obtained/Reviewed and Anes Risks/Benef Reviewed Patient Risk: Intermediate Procedure Risk: Intermediate Assessment/Block/Sedation in : Assess/Block/Sedation- Anesthetic Plan Anesthetic Plan: GA Disposition: Standard PACU
--- NOTE | 2020-12-01 15:57 | PM.OP ---
Brief Operative Note Date of Service: 12/01/20 Pre-op diagnosis: acute appendicitis Post-op diagnosis: other (same and umbilical hernia) Procedure: laparoscopic appendectomy and primary repair of umbilical hernia Surgeon: Magdalena Alcazar MD Anesthesia: GETA Was an Twine Reeling Machine Operator used for this Procedure?: No Estimated blood loss (mL): 5 Pathology: other (appendix) Condition: stable Disposition: PACU
[2020-12-01] MEDS: 0.9 % Sodium Chloride Flush 3 ML SYRINGE IVFLUSH (18:07)
[2020-12-01] MEDS: 0.9 % Sodium Chloride 1,000 ML 80 ML IVCONT (18:22)
[2020-12-02] VITALS: BP 113/63; PULSE 68; RESP 18; TEMP 36.4; O2SAT 94
[2020-12-02] MEDS: Piperacillin Sodium/Tazobactam 3.375 GM in 0.9 % Sodium Chloride 50 ML IV ×2 (02:47→08:25)
--- NOTE | 2020-12-02 03:18 | OP_ITS ---
SURGEON: Magdalena Alcazar MD PREOPERATIVE DIAGNOSIS: POSTOPERATIVE DIAGNOSIS: PROCEDURE PERFORMED: Laparoscopic appendectomy and open primary repair of umbilical hernia. ESTIMATED BLOOD LOSS: Less than 5 mL. COMPLICATIONS: None. ANESTHESIA: General endotracheal. ASSISTANTS: SPECIMENS: PREPROCEDURE DIAGNOSIS: Acute appendicitis. POSTPROCEDURE DIAGNOSES: Acute appendicitis and umbilical hernia. FINDINGS: Umbilical hernia that was about 1-1/2 to 2 cm in size and an inflamed almost gangrenous appearing appendix. CONDITION: Postprocedure, good. DESCRIPTION OF PROCEDURE: The patient was brought into the operating room, placed on operating table in supine position. Normal DVT prophylaxis was instituted and the patient received 3.375 g of IV Zosyn preoperatively. General anesthesia was induced. The abdomen was shaved with electric clippers and then prepped and draped in normal sterile fashion using ChloraPrep. The left arm was tucked next to the patient. Next, a safety time-out was performed. Next, a mixture of 1% lidocaine with epinephrine 0.25% Marcaine plain was used to anesthetize the planned incision site, which was infraumbilical and subcutaneous tissues surrounding the umbilicus in order to repair the umbilical hernia on the way out. We then made a 2 cm infraumbilical transverse surgical incision through which the subcutaneous tissues were dissected down to the level of fascia. The umbilical skin was dissected off the underlying fascia and peritoneum using the cautery. We cleared the fascial edge for 3 cm circumferentially. We then used a Veress needle at the level of the peritoneum where there was a fascial defect and we placed this intraabdominal. We then used saline drop test to confirm that the Veress needle was intraabdominal. We then insufflated the abdomen to 15 mmHg. Next, we placed a 12 mm port through the umbilical fascial defect, through the peritoneum. We insufflated the abdomen to 15 mmHg. We then placed a 5 mm 30-degree laparoscope intraabdominally and surveyed the abdominal cavity, which appeared to be normal. We placed 2 additional 5 mm ports, 1 in the suprapubic region, 1 in the patient's left lower quadrant under direct vision. We then placed the patient in Trendelenburg position and left side tilted down. We could visualize an inflammatory change with fibrinous exudate in the right lower quadrant. We brought the small bowel medially and could see the inflamed appendix, which appeared almost gangrenous in the right lower quadrant. We dissected the mesoappendix using LigaSure device down to the base of the appendix. We then stapled across the base of the appendix using two 45 mm white load staplers. We passed the appendix into an EndoCatch bag and removed from the abdomen. We evaluated the staple line, it was hemostatic and in good condition. There was no evidence of any bleeding. We then removed the 5 mm ports under direct vision. There was no bleeding noted from these port sites. We desufflated the abdomen through the last port and removed the last port and laparoscope. We reapproximated the fascial defect where the 12 mm port had been placed through the peritoneum transversely. We used a total of four 0 Prolene sutures to primarily close the defect transversely. There was no residual defect. We then tacked down the umbilical skin to the fascia using a total of 2 sutures of 3-0 Vicryl. We then reapproximated the deep dermal tissues using several interrupted 3-0 Vicryl sutures. Overlying skin was closed with 4-0 Monocryl subcuticular stitch at all the laparoscopic port sites. We cleaned and dried the skin and applied Dermabond skin glue to all skin incisions. All counts were correct at the end of the case. There were no complications. We did place a 2 x 2 dressing in the umbilicus and Tegaderm over that in order to keep the umbilicus pulled down to the fascia. There were no complications. HEAD OF COMMISSION DEPARTMENT: None. SPECIMEN: Appendix. MD CONY Constantino/NIKKIL / [id number]
[2020-12-02 04:00] VITALS: BP 137/70; PULSE 64; RESP 18; TEMP 36.2; O2SAT 95
[2020-12-02] MEDS: 0.9 % Sodium Chloride 1,000 ML 80 ML IVCONT (05:59)
[2020-12-02 06:07] VITALS: RESP 18
[2020-12-02] MEDS: Morphine Sulfate 2 MG/ML CARTRIDGE IVPUSH (06:07)
[2020-12-02 08:00] VITALS: BP 146/79; PULSE 71; RESP 18; TEMP 36.8; O2SAT 93
--- NOTE | 2020-12-02 08:15 | P.PNGS_ITS ---
Subjective Subjective Date of Service: 12/02/20 <Milli Headley PA-C - Last Filed: 12/02/20 08:20> 12/02/20 <Magdalena Alcazar MD - Last Filed: 12/02/20 10:01> Interval history: Feels ok this morning- much better then when he came in. Pain is only around incision sites and is sore. Ate a sandwich last night without any N/V. Has not been OOB yet. <Milli Headley PA-C - Last Filed: 12/02/20 08:20> Feels ok this morning- much better then when he came in. Pain is only around incision sites and is sore. Ate a sandwich last night without any N/V. Has not been OOB yet. Patient is doing well on postoperative day 1. Status post laparoscopic appendectomy and open primary repair of umbilical hernia. Patient is tolerating regular diet. He has not been out of bed to ambulate. Vital signs are within normal limits. I agree with the physician materials assistant subjective, visit coli exam, and assessment and plan. Patient should be out of bed to ambulate and should be able to be discharged home later this morning. Patient should follow up with me as an outpatient in 2 weeks time frame. <Magdalena Alcazar MD - Last Filed: 12/02/20 10:01> Physical Exam Vital Signs: Vital Signs: Last Vital Signs Temp 97.2 F 12/02/20 04:00 Pulse 64 12/02/20 04:00 Resp 18 12/02/20 06:07 BP 137/70 12/02/20 04:00 Pulse Ox 95 12/02/20 04:00 Body Mass Index 33.9 <Milli Headley PA-C - Last Filed: 12/02/20 08:20> Const: General: comfortable, no acute distress and alert <Milli Headley PA-C - Last Filed: 12/02/20 08:20> Orientation/consciousness: patient oriented x3 <JIMI Alvarado Last Filed: 12/02/20 08:20> Eyes: Sclerae: sclerae normal <Milli Headley PA-C - Last Filed: 12/02/20 08:20> Resp: Effort & Inspection: normal respiratory effort <Milli Headley PA-C - Last Filed: 12/02/20 08:20> Cardio: Rate: regular rate <Milli JIMI Headley - Last Filed: 12/02/20 08:20> GI: Inspection: Yes distended (softly), Yes incision (clean) and Yes other (protuberant) <Milli Headley PA-C [place] Last Filed: 12/02/20 08:20> Palpation (GI): Soft to palpation and Tenderness to palpation present (GI) (mild, incisional) <Milli Headley PA-C [place] Last Filed: 12/02/20 08:20> Percussion: Yes tympanic to percussion <Milli Headley PA-C Last Filed: 12/02/20 08:20> Skin: General skin exam: no rashes or lesions noted <Milli Headley PA-C Last Filed: 12/02/20 08:20> Neuro: General: patient oriented x3 <Milli Headley PA-C Last Filed: 12/02/20 08:20> Extrem: General: Yes no clubbing, cyanosis or edema <Milli Headley PA-C Last Filed: 12/02/20 08:20> Procedures Date of Service Date of Service: 12/02/20 <Milli Headley PA-C Last Filed: 12/02/20 08:20> Progress Note: A&P Assessment and plan (1) Acute appendicitis: Status: Acute <Milli Headley PA-C [place] Last Filed: 12/02/20 08:20> (2) S/P laparoscopic appendectomy: Status: Acute <JIMI Alvarado Last Filed: 12/02/20 08:20> (3) Umbilical hernia: Status: Acute <Milli Headley PA-C [place] Last Filed: 12/02/20 08:20> Assessment and Plan: 65 year old male with PMH including Afib on apixaban admitted with acute appendicitis now POD #1 s/p lap appy, umbilical hernia repair. He is doing well post op, comfortable with good pain control. He is tolerating a solid diet. VSS. His abdomen is benign with appropriate post op tenderness and clean incisions. Will reassess later today- if getting OOB and ambulating without difficulty, stable for discharge to home today. Strongly encouraged IS use. <Milli Headley PA-C - Last Filed: 12/02/20 08:20> Fall Risk Details Current Medications: Current Medications Acetaminophen (Acetaminophen 325 Mg Tablet) 650 mg PO Q6H PRN PRN Reason: Fever >100.4 Acetaminophen (Acetaminophen 325 Mg Tablet) 650 mg PO ONCE PRN PRN Reason: Pain, Mild (Pain Scale 1-3) Atorvastatin Calcium (Atorvastatin Calcium 40 Mg Tablet) 40 mg PO BEDTIME [place] Diphenhydramine HCl (Diphenhydramine Hcl 25 Mg Tablet) 25 mg PO Q4H PRN PRN Reason: itching Sodium Chloride (Ns) 1,000 mls @ 80 mls/hr IVCONT .[id number] [facility] Last Admin: 12/02/20 05:59 Dose: 80 mls/hr Documented by: Piperacillin Sod/Tazobactam (Sod 3.375 gm/ Sodium Chloride) 50 mls @ 100 mls/hr IV Q6H [facility] Last Infusion: 12/02/20 03:21 Dose: Infused Documented by: Morphine Sulfate (Morphine Sulfate 2 Mg/Ml Cartridge) 2 mg IVPUSH Q3H PRN; Protocol PRN Reason: Pain, Moderate (Pain Scale 4-6 Last Admin: 12/02/20 06:07 Dose: 2 mg Documented by: Morphine Sulfate (Morphine Sulfate 4 Mg/Ml Cartridge) 4 mg IVPUSH Q3H PRN; Protocol PRN Reason: Pain, Severe (Pain Scale 7-10) Non-Formulary Medication (Enzalutamide [Xtandi]) 80 mg PO DAILY [facility] Ondansetron HCl (Ondansetron Hcl 4 Mg/2 Ml Vial) 4 mg IVPUSH Q4H PRN PRN Reason: Nausea Oxycodone HCl (Oxycodone Hcl Immed Release 5 Mg Tablet) 5 mg PO Q3H PRN PRN Reason: Pain, Moderate (Pain Scale 4-6 Oxycodone HCl (Oxycodone Hcl Immed Release 5 Mg Tablet) 10 mg PO Q3H PRN PRN Reason: Pain, Severe (Pain Scale 7-10) Pharmacy Consult (Consult Rx Perform Med Rec) 1 each MISCELLANE ONCE PRN PRN Reason: Consult order Sodium Chloride (0.9 % Sodium Chloride Flush 3 Ml Syringe) 3 ml IVFLUSH QSHIFT [facility] Last Admin: 12/02/20 00:05 Dose: Not Given Documented by: Tamsulosin HCl (Tamsulosin Hcl 0.4 Mg Capsule) 0.8 mg PO DAILY [facility] <Milli Headley PA-C - Last Filed: 12/02/20 08:20> Time Spent With Patient Time: Total time spent is greater than 50% in coordination of care (as documented) at patient's floor/unit and/or counseling patient: <Milli Headley PA-C - Last Filed: 12/02/20 08:20> Time with patient: 15 - 24 minutes <Milli Headley PA-C - Last Filed: 12/02/20 08:20> Quality Stroke Does the patient have a stroke diagnosis?: No <Milli Headley PA-C - Last Filed: 12/02/20 08:20> VTE Prior VTE?: Yes <Milli Headley PA-C - Last Filed: 12/02/20 08:20> VTE Risk Level:: Surgical - moderate <Milli Headley PA-C - Last Filed: 12/02/20 08:20> VTE Device Contraindication: N/A - Device Ordered <JIMI Alvarado Last Filed: 12/02/20 08:20> VTE Drug Contraindication: Treatment Not Indicated <Milli Headley PA-C - Last Filed: 12/02/20 0 8:20>
[2020-12-02] MEDS: Tamsulosin HCL 0.4 MG CAPSULE 0.8 MG PO (08:25)
--- NOTE | 2020-12-02 09:08 | MHC.CM.PN ---
pt lives in [facility]. in [place]. he reports that he is independent in his care, he does not own a car. he is friendly c his neighbor, in fact his neighbor gave him a ride to e.d. this admission. pt has recently been appointed a SW at [facility] in the past two weeks. he denies the need for vna at dc and does not use any AD c ambulation. pt did request to use the [facility] courtesy van for transport home at [place]. dc plan is home no svcs. cm to cont. to follow.
[2020-12-02] MEDS: oxyCODONE HCl Immed Release 5 MG TABLET 10 MG PO (10:04)
--- NOTE | 2020-12-02 10:44 | HO.POSTANES ---
Post Anesthesia Evaluation Post Anesthesia Evaluation Vital Signs: Vital Signs Temp Pulse Resp BP Pulse Ox 12/02/20 08:00 98.2 F 71 18 146/79 H 93 12/02/20 06:07 18 12/02/20 04:00 97.2 F 64 18 137/70 95 12/02/20 00:00 97.5 F 68 18 113/63 94 Anesthesia: General Endotracheal-GETA Mental Status: Awake Pain Control: Satisfactory Nausea/Vomiting: None Hydration: Adequate Anesthesia-Related Issues: No Anes. Related Issues
--- NOTE | 2020-12-02 12:24 | P.DS_ITS ---
DS: Providers Provider Date of Service: 12/02/20 Date of admission: 12/01/20 13:24 Primary care physician: Kenia Moses MD Attending physician on admission: Magdalena Alcazar DS: Diagnosis Discharge Diagnosis (1) Acute appendicitis: Status: Acute (2) S/P laparoscopic appendectomy: Status: Acute (3) Umbilical hernia: Status: Acute DS: Summary Hospital Course Hospital Course: BRIEF HPI: Ted Reed is a 65 year old male with a past medical history significant for atrial fibrillation on Eliquis, hypercholesterolemia, COPD, and prostate cancer status post treatment with radiation therapy who presents to the emergency department with 4 day history of having abdominal discomfort that he thought was an ?a stomach ache?.? He reports that his pain increased and became a 6 to 8/10 and the pain localized to the right lower quadrant yesterday afternoon.? He reports having poor appetite over the past 4 days.? Last meal was yesterday around noon.? He denies any change in urinary habits or bowel habits.? He denies any fever or chills or chest pain.? Patient has mild baseline shortness of breath secondary to his history of COPD.? Patient came to the emergency department was evaluated with blood work and showed a white blood cell count of 12.4.? Patient underwent a CT scan abdomen and pelvis which showed a dilated appendix to 1.5 cm in size with associated periappendiceal stranding consistent with acute appendicitis. Patient is being followed by Dr. Dunn from Urology regarding prostate cancer. HOSPITAL COURSE: The patient was admitted to the surgical service for further treatment of acute appendicitis.?It was recommended to proceed with laparoscopic possible open appendectomy.?He was added onto the OR schedule for that day. He was kept NPO, on IVF and started on IV zosyn empirically. On 12/01/20, a laparoscopic appendectomy with primary repair of umbilical hernia was performed by Dr. Alcazar without complication. The appendix was found to be inflamed and almost gangrenous appearing. The patient tolerated the procedure well, completed routine recovery in PACU and was admitted to the medical/surgical floor for observation. He had an uncomplicated recovery course. On POD #1, the patient was doing well post operatively with good pain control and tolerating a solid diet. His abdomen was benign with appropriate post op tenderness and clean incisions. He was reassessed later in the day and was ambulating without difficulty. He felt ready for discharge. He was discharged to home in stable condition with f/u with Dr. Alcazar in office. Status at Discharge Functional status at discharge: independent ambulation Overall status at discharge: patient is progressing back to baseline Time Spent with Patient Time attestation: Total time spent providing and/or coordinating discharge ser vices: Discharge coordination time: Less than 30 minutes Quality: Stroke Does the patient have a stroke diagnosis?: No Physical Exam Vital Signs: Vital Signs: Last Vital Signs Temp 98.2 F 12/02/20 08:00 Pulse 71 12/02/20 08:00 Resp 18 12/02/20 08:00 BP 146/79 H 12/02/20 08:00 Pulse Ox 93 12/02/20 08:00 Body Mass Index 33.9 Const: General: comfortable, no acute distress and alert Orientation/co nsciousness: patient oriented x3 Resp: Effort & Inspection: normal respiratory effort GI: Other: abdomen protuberant Inspection: Yes incision (clean) Palpation (GI): Soft to palpation and Tenderness to palpation present (GI) (incisional) Skin: General skin exam: no rashes or lesions noted Neuro: General: patient oriented x3 Extrem: General: Yes no clubbing, cyanosis or edema DS: Data Data Completed and Pending Pending studies at discharge: Pending at discharge 12/01/20 15:21 Surgical [PTH] Routine Labs on day of discharge: Laboratory Results - last 24 hr 12/01/20 12/01/20 12/01/20 12:13 13:11 13:11 PT 14.1 H INR 1.2 H APTT 38.1 H Lactic Acid 0.8 COVID-19 ([facility]) Negative COVID-19 Clin Com See Note Blood Type Antibody Screen 12/01/20 13:13 PT INR APTT Lactic Acid COVID-19 ([facility]) COVID-19 Clin Com Blood Type AB Positive Antibody Screen NEGATIVE Discharge Plan Discharge Patient Disposition: Home, Self-Care Discharge Diagnosis: acute appendicitis, umbilical hernia Referrals: Magdalena Alcazar MD [Physician] - 2 Weeks Physician,Unknown [Physician] - 1 Week Discharge Medications: New oxycodone 5 mg tablet 5 mg PO Q4H PRN (Reason: pain (scale score 7-10)) Qty: 20 RF: 0 docusate sodium [Colace] 100 mg capsule 100 mg PO BID Qty: 30 RF: 0 Continued tamsulosin 0.4 mg capsule 0.8 mg PO DAILY 90 Days Qty: 180 RF: 2 rosuvastatin 10 mg tablet 10 mg PO DAILY RF: 0 Xtandi 40 mg capsule 80 mg PO DAILY RF: 0 apixaban 5 mg tablet 5 mg PO BID RF: 0 Discharge Orders: Discharge Order (Routine); Ordered 12/02/20 Ordered By: Milli Headley Diet: advance to usual diet Activity on Discharge: No heavy lifting Stand Alone Forms: Patient Portal Discharge page Activity Restrictions/Additional Instructions: If the incision area is tender, you may apply an ice pack for short intervals (No more than 20 minutes on, followed by at least 20 minutes off). Do not apply heat. Do not use creams, lotions, or topical antibiotics unless instructed to do so by your surgeon. These can cause infection or allergic reaction. Ok to shower. No tub bath or swimming. Remove clear dressing on 12/04/20. NO HEAVY LIFTING (>10lbs). Follow up in office. Call Your Doctor If: -Your temperature exceeds 101.5? F -You experience excessive pain or swelling -You have an unexpected reaction to medication -You have excessive bleeding -You experience continued vomiting/nausea -Your incision begins to separate -Your incision shows signs of infection such as increased redness, swelling, excessive pain, drainage (light blood or clear fluid is normal) or heat Care Plan Goals: Return to baseline health and gradual return to activity following recovery period. Health Concerns: acute appendicitis, umbilical hernia s/p lap appy and repair of umbilical hernia Plan of Treatment: Discharge to home, f/u in office in [address] Alcazar. Assessment: Doing well post op.
== END 2020-12-02 13:35 | disposition home or self-care (01) | DRG 343 ==
LOC: HO.ED 13:18 → HO.SSS 14:02 → HO.SSSA 14:21 → HO.S3 16:42
PROVIDERS: Physician Assistant; Admitting Provider Surgery; Emergency Provider Emergency Medicine Emergency Medical Services; PCP Internal Medicine; Visit Provider Surgery
PROC: 0DTJ4ZZ Resection of Appendix, Percutaneous Endoscopic Approach (ICD-10-PCS; CPT 44970; principal; 2020-12-01 14:10)
DX: K35.30 Acute appendicitis with localized peritonitis, without perforation or gangrene (principal); K42.9 Umbilical hernia without obstruction or gangrene; I48.91 Unspecified atrial fibrillation; Z20.822 Contact with and (suspected) exposure to COVID-19; Z79.01 Long term (current) use of anticoagulants; Z79.51 Long term (current) use of inhaled steroids; Z79.899 Other long term (current) drug therapy
CPT/HCPCS: 36415; 74177; 80048; 80076; 81003; 83605; 83690; 83735; 85025; 85610; 85730; 86850; 86900; 86901; 87040; 87635; 88304; 99285; J1170; J2250; J2270; J2405; J2543; J3010; Q9967

== ENCOUNTER → 2020-12-17 10:26 | Outpatient (BNVA) | payer OTHER, SELFPAY | PROVIDERS: PCP Internal Medicine; Visit Provider Surgery | DX: K42.9 Umbilical hernia without obstruction or gangrene (principal); Z90.49 Acquired absence of other specified parts of digestive tract | CPT/HCPCS: 99212 ==

== ENCOUNTER 2020-12-24 12:24 | Outpatient (REF) | payer OTHER, SELFPAY ==
[2020-12-24 14:58] LABS: Prostate Specific Antigen < 0.05 ng/mL (<0.05-4.0)
[2020-12-29 11:42] LABS: Testosterone, Total 4 ng/dL (250-1100)
== END 2020-12-24 12:25 | disposition home or self-care (01) ==
LOC: HO.HMGCLDS 12:24
PROVIDERS: Visit Provider Urology
DX: Z12.5 Encounter for screening for malignant neoplasm of prostate (principal); R97.21 Rising PSA following treatment for malignant neoplasm of prostate
CPT/HCPCS: 36415; 84153; 84403

== ENCOUNTER → 2021-01-09 15:39 | Outpatient (BNVA) | payer OTHER, SELFPAY | PROVIDERS: PCP Internal Medicine; Visit Provider Urology | DX: Z13.89 Encounter for screening for other disorder (principal) | CPT/HCPCS: Q3014 ==

== ENCOUNTER 2021-03-26 10:32 | Outpatient (REF) | payer OTHER, SELFPAY ==
[2021-03-26 14:49] LABS: Prostate Specific Antigen < 0.05 ng/mL (<0.05-4.0)
[2021-04-03 14:11] LABS: Testosterone, Total <1 ng/dL (250-1100)
== END 2021-03-26 10:33 | disposition home or self-care (01) ==
LOC: HO.HMGCLDS 10:32
PROVIDERS: Visit Provider Urology
DX: R97.21 Rising PSA following treatment for malignant neoplasm of prostate (principal); Z12.5 Encounter for screening for malignant neoplasm of prostate
CPT/HCPCS: 36415; 84153; 84403

== ENCOUNTER → 2021-04-10 10:18 | Outpatient (BNVA) | payer OTHER, SELFPAY | PROVIDERS: PCP Internal Medicine; Visit Provider Urology | DX: C61 Malignant neoplasm of prostate (principal) | CPT/HCPCS: 96402; 99212; J9217 ==

== ENCOUNTER 2021-06-22 08:39 | Outpatient (REF) | payer OTHER, SELFPAY ==
[2021-06-22 11:57] LABS: Prostate Specific Antigen < 0.05 ng/mL (<0.05-4.0)
[2021-06-28 11:12] LABS: Testosterone, Total <1 ng/dL (250-1100)
== END 2021-06-22 08:40 | disposition home or self-care (01) ==
LOC: HO.HMGCLDS 08:39
PROVIDERS: Visit Provider Urology
DX: Z12.5 Encounter for screening for malignant neoplasm of prostate (principal); C61 Malignant neoplasm of prostate
CPT/HCPCS: 36415; 84153; 84403

== ENCOUNTER → 2021-07-08 13:28 | Outpatient (BNVA) | payer OTHER, SELFPAY | PROVIDERS: PCP Internal Medicine; Visit Provider Urology | DX: Z13.89 Encounter for screening for other disorder (principal) | CPT/HCPCS: 99212 ==

== ENCOUNTER 2021-09-10 11:25 | Emergency (ER) | payer OTHER, SELFPAY ==
--- NOTE | 2021-09-10 | ECG_ITS ---
Test Reason : weakness Blood Pressure : / mmHG Vent. Rate : 075 BPM Atrial Rate : 075 BPM P-R Int : 158 ms QRS Dur : 162 ms QT Int : 464 ms P-R-T Axes : -20 -89 026 degrees QTc Int : 518 ms Normal sinus rhythm Left axis deviation Right bundle branch block Abnormal ECG No previous ECGs available Referred By: Keshia Stevenson Electronically Signed By:ALEXIS MEDINA
[2021-09-10 11:39] VITALS: BP 107/68; PULSE 89; RESP 18; TEMP 36.7; O2SAT 95; BMI 33.9
--- NOTE | 2021-09-10 11:41 | ED.OVERDOSE ---
HPI - Overdose General Chief Complaint: General Medical Stated Complaint: PT THINKS HE TOOK ACCID EXTRA PREDNISONE PER EMS Time Seen by Provider: 09/10/21 11:41 Source: patient Mode of arrival: EMS Limitations: no limitations History of Present Illness HPI Narrative: 66 yo male with hx of COPD, afib on eliquis, prostate cancer on radiation/hormone therapy, HLD, comes in after accidentally taking 500mg extra dose of his Zytiga today. He feels slightly off at this time. He was worried his BS would go low. BS 118 with EMS. No SI. Took his usual dose of Zytiga 500mg around 8am. MD complaint: accidental overdose Onset (ago): hour(s) (in last hour) Context: Accidental Overdose: medication error Associated symptoms: other (feels a little off) Treatments Prior to Arrival: none Related Data Home Medications Medication Instructions Recorded Confirmed apixaban 5 mg tablet 5 mg PO BID 02/27/20 12/17/20 albuterol sulfate 90 mcg/actuation 1 puff inhalation Q6H PRN 05/27/20 12/17/20 aerosol inhaler Shortness Of Breath fluticasone 250 mcg-salmeterol 50 1 inh inhalation BID 05/27/20 12/17/20 mcg/dose blistr powdr for inhalation umeclidinium 62.5 mcg/actuation 1 inh inhalation DAILY 05/27/20 12/17/20 blister powder for inhalation rosuvastatin 10 mg tablet 10 mg PO DAILY 12/01/20 12/17/20 fluticasone 250 mcg-salmeterol 50 1 inh inhalation BID 12/17/20 12/17/20 mcg/dose blistr powdr for inhalation (Wixela Inhub) rosuvastatin 20 mg tablet 20 mg PO BEDTIME 07/08/21 Previous Rx's Medication Instructions Recorded abiraterone 250 mg tablet 500 mg PO DAILY 90 days #180 tabs 07/09/21 prednisone 5 mg tablet 5 mg PO DAILY 30 days #30 tabs 07/09/21 tolterodine 4 mg capsule,extended 4 mg PO DAILY #90 caps 07/09/21 release 24 hr tamsulosin 0.4 mg capsule 0.8 mg PO DAILY 90 days #180 caps 07/23/21 Allergies Allergy/AdvReac Type Severity Reaction Status Date / Time No Known Allergies Allergy Verified 07/08/21 13:51 Review of Systems Review of Systems: Constitutional : No Weight loss, No Fever, No Chills, No Fatigue, No Malaise ENT/Mouth : No sore throat, No Rhinorrhea Eyes: No Eye Pain, No Swelling, No Redness Cardiovascular : No Chest Pain, No SOB, No Dyspnea on Exertion, No Orthopnea, No Edema, No Palpitations Respiratory : No Cough, No Sputum, No Wheezing Gastrointestinal : No Nausea, No Vomiting, No Diarrhea, No Constipation, No abdominal Pain, No Hematochezia, No Melena Genitourinary : No Dysuria, No Urinary Frequency, No Hematuria, Musculoskeletal : No joint pain, No Myalgias, No Joint Swelling Skin : No Skin Lesions, No rash Neuro : pos Weakness, No Numbness, No Dizziness, No Headache Psych : No Anxiety/Panic, No Depression Heme/Lymph: No Bruising, No Bleeding,No Lymphadenopathy Endocrine : No Polyuria, No Polydipsia All other systems reviewed and are negative [facility] Past Medical History Attestation statement: The following information was validated with the patient. Medical History Atrial fibrillation Bladder outlet obstruction COPD (chronic obstructive pulmonary disease) Current use of chcf anticoagulation History of prostate cancer History of radiation therapy Hypercholesterolemia Nocturia Pre-diabetes Weak urinary stream Surgical History H/O tooth extraction History of prostate biopsy Family History Family History Father Brain cancer Mother Pancreatic cancer Brother Drug overdose Brother Drug overdose Brother Pancreatic cancer Brother No problems noted. Brother No problems noted. Sister No problems noted. Social History Social History Household Members: None Housing: Apartment Housing Other:: Lives in a 1 room efficiency Are you a primary wound care technician to a significant other at home: No Do you presently have visiting nurse or other home services: No Alcohol intake: former Year quit: 2019 Patient Tobacco Use Status: Former Tobacco user Quit Date: 2.5 years ago Years Smoked: 38 Advance Directives: No Advance Directives Information Provided: Yes service: No Current occupational status: retired Physical Exam Vital Signs: Vital Signs: Last Vital Signs Temp 98.0 F 09/10/21 12:44 Pulse 81 09/10/21 12:44 Resp 18 09/10/21 12:44 BP 136/67 09/10/21 12:44 Pulse Ox 94 09/10/21 12:44 O2 Del Method 09/10/21 12:44 BMI result Body Mass Index 33.9 Appearance: Alert. Oriented X3. No acute distress. Eyes: Pupils equal, round and reactive to light. ENT: Pharynx normal. Neck: Normal inspection. Neck supple. CVS: Normal heart rate and rhythm. Pulses normal. Respiratory: No respiratory distress. Breath sounds normal. Abdomen: Soft and non-tender. Skin: Skin warm and dry. Normal skin color. Normal skin turgor. Extremities: No lower extremity edema. No calf ttp Neuro: Oriented X 3. No motor deficit. No sensory deficit. Course Course Course Narrative: poison control - EKG, CBC, lytes, LFTs could have diarrhea and muscle cramps no acute complaints at this time, wants to leave poison control aware okay with DC MDM - Overdose MDM Narrative Medical decision making narrative: 66 yo male with hx of COPD, afib on eliquis, prostate cancer on radiation/hormone at this time normally takes 500mg of zytiga a day and accidentally took extra dose to total 1,000mg total. At this time will feed patieint and consult poison control. Dispo per results and findings. Lab Data Result diagrams: 09/10/21 12:26 09/10/21 12:26 Labs: Lab Results 09/10/21 09/10/21 Range/Units 12:26 12:26 WBC 7.8 (4.8-10.8) X10*3/uL RBC 4.03 L (4.60-5.80) X10*6/uL Hgb 11.8 L (14.0-18.0) g/dl Hct 35.7 L (42.0-52.0) % MCV 88.6 (80.0-98.0) fL MCH 29.3 (27.0-33.0) pg MCHC 33.1 (31.0-36.0) g/dl RDW 13.3 (11.0-16.0) % Plt Count 201 (160-400) X10*3/uL MPV 10.0 (9.4-12.4) fL Immature Gran % (Auto) 0.4 (0.0-0.4) % Neut % (Auto) 83.0 H (45-73) % Lymph % (Auto) 9.4 L (20-40) % [place] % (Auto) 5.4 (2-11) % Eos % (Auto) 1.4 (0-4) % Baso % (Auto) 0.4 (0-2) % Lymph # (Auto) 0.7 L (1.2-4.9) X10*3/uL [place] # (Auto) 0.4 (0.1-1.2) X10*3/uL Eos # (Auto) 0.1 (0.0-0.4) X10*3/uL Baso # (Auto) 0.0 (0.0-0.2) X10*3/uL Abs Immat Gran (auto) 0.03 (0.00-0.03) X10*3/uL Absolute Neuts (auto) 6.4 (2.0-8.3) x10*3/uL Absolute Nucleated RBC 0.000 (0.0-0.012) X10*3/uL Nucleated RBC % (auto) 0.0 (0.0-0.2) /100WBC Sodium 138 (135-145) mmol/L Potassium 3.9 (3.3-5.1) mmol/L Chloride 105 (96-108) mmol/L Carbon Dioxide 25 (22-29) mmol/L Anion Gap 12 (12-20) BUN 14 (9-16) mg/dL Creatinine 0.82 (0.5-1.4) mg/dL Estim Creat Clear Calc 115.2 Estimated GFR > 60 Random Glucose 156 H D (60-115) mg/dL Calcium 9.1 (8.4-10.2) mg/dL Total Bilirubin 0.4 (0.0-1.0) mg/dL Direct Bilirubin 0.2 (0.0-0.5) mg/dL AST 14 (5-37) U/L ALT 15 (0-40) U/L Alkaline Phosphatase 64 (39-117) U/L Total Protein 6.5 (6.5-8.0) g/dL Albumin 4.2 (3.5-5.0) g/dL ECG Data Attestation: I personally reviewed and interpreted this ECG as follows: ECG interpretation date: 09/10/21 ECG interpretation time: 12:20 Interpretation: Rate: 75 Rhythm: NSR [place]: left Normal P waves. Normal [place]. RBBB ST T wave : nonspecific, no KOREY qTC: prolonged prior studies: no prior The study has been interpreted contemporaneously by me. . Discharge Plan Discharge Clinical Impression: Accidental overdose Qualifiers: Encounter type: initial encounter Qualified Code(s): T50.901A - Poisoning by unspecified drugs, medicaments and biological substances, accidental (unintentional), initial encounter Patient Disposition: Home, Self-Care Instructions: Adult Overdose (ED) Additional Instructions: return to ED for any worsening symptoms or concerns monitor for diarrhea, muscle cramps, if any concerns please return Prescriptions: No Action prednisone 5 mg tablet 5 mg PO DAILY 30 Days Qty: 30 5RF abiraterone 250 mg tablet 500 mg PO DAILY 90 Days Qty: 180 3RF Rx Instructions: must be taken on empty stomach, at least 1 hr before or 2 hrs after a meal/food tolterodine 4 mg capsule,extended release 24hr 4 mg PO DAILY Qty: 90 0RF tamsulosin 0.4 mg capsule 0.8 mg PO DAILY 90 Days Qty: 180 2RF rosuvastatin 10 mg tablet 10 mg PO DAILY umeclidinium 62.5 mcg/actuation blister with device 1 inh inhalation DAILY fluticasone propion-salmeterol 250-50 mcg/dose blister with device 1 inh inhalation BID albuterol sulfate 90 mcg/actuation HFA aerosol inhaler 1 puff inhalation Q6H PRN (Reason: Shortness Of Breath) apixaban 5 mg tablet 5 mg PO BID fluticasone propion-salmeterol [Wixela Inhub] 250-50 mcg/dose blister with device 1 inh inhalation BID rosuvastatin 20 mg tablet 20 mg PO BEDTIME
[2021-09-10 11:43] VITALS: BP 164/94; PULSE 96; O2SAT 95
--- NOTE | 2021-09-10 11:52 | PC.NURSE ---
pt presents to ED via EMS after he accidently took his zytiga twice (total dose 1000mg, order is for 500mg) pt reports general weakness, increased urination and feels weird , pt states he also took 10mg of predinisone in addition to his zytiga. Pt alert, oriented, speaking in full complete sentences, NAD. WCTM
--- NOTE | 2021-09-10 12:06 | PC.NURSE ---
Spoke with Poison Control (Jerzy) RE: Zytiga overdose. States Supportive is recommended at this time. EKG, Chemistry, and LFT's. States most patients may experience the following: hypokalemia, edema, UTI, muscular weakness, diarrhea, cough, and increased urination. Poison control advises this medication is well tolerated in overdose settings. Information relayed to MD Stevenson, labs and diag ordered. Poison Control will call back to follow up.
[2021-09-10 12:32] LABS: Basophils Percent Auto 0.4 % (0-2); Eosinophils Absolute Auto 0.1 X10*3/uL (0.0-0.4); Eosinophils Percent Auto 1.4 % (0-4); Hematocrit 35.7 % (42.0-52.0); Hemoglobin 11.8 g/dl (14.0-18.0); Imm Gran Abs Auto 0.03 X10*3/uL (0.00-0.03); Imm Gran Pct Auto 0.4 % (0.0-0.4); Lymphocytes Absolute Auto 0.7 X10*3/uL (1.2-4.9); Lymphocytes Percent Auto 9.4 % (20-40); MANUAL DIFF FLAG NO; Mean Corpuscular HGB Conc 33.1 g/dl (31.0-36.0); Mean Corpuscular Hemoglobin 29.3 pg (27.0-33.0); Mean Corpuscular Volume 88.6 fL (80.0-98.0); Monocytes Absolute Auto 0.4 X10*3/uL (0.1-1.2); Monocytes Percent Auto 5.4 % (2-11); Neutrophils Absolute Auto 6.4 x10*3/uL (2.0-8.3); Platelet Count 201 X10*3/uL (160-400); Red Blood Count 4.03 X10*6/uL (4.60-5.80); Red Cell Distribution Width 13.3 % (11.0-16.0); White Blood Count 7.8 X10*3/uL (4.8-10.8)
[2021-09-10 12:44] VITALS: BP 136/67; PULSE 81; RESP 18; TEMP 36.7; O2SAT 94
[2021-09-10 12:52] LABS: Alanine Aminotransferase 15 U/L (0-40); Albumin Level 4.2 g/dL (3.5-5.0); Alkaline Phosphatase 64 U/L (39-117); Anion Gap 12 (12-20); Aspartate Amino Transferase 14 U/L (5-37); Bilirubin Direct 0.2 mg/dL (0.0-0.5); Bilirubin Total 0.4 mg/dL (0.0-1.0); Blood Urea Nitrogen 14 mg/dL (9-16); Calcium 9.1 mg/dL (8.4-10.2); Carbon Dioxide 25 mmol/L (22-29); Chloride 105 mmol/L (96-108); Creatinine Clr Calc Pharmacy 115.2; Estimated Glomerular Filt Rate > 60; Glucose Random 156 mg/dL (60-115); Potassium 3.9 mmol/L (3.3-5.1); Sodium 138 mmol/L (135-145); Total Protein 6.5 g/dL (6.5-8.0)
== END 2021-09-10 14:10 | disposition home or self-care (01) ==
PROVIDERS: Emergency Provider Emergency Medicine; PCP Student in an Organized Health Care Education/Training Program
DX: T45.1X1A Poisoning by antineoplastic and immunosuppressive drugs, accidental (unintentional), initial encounter (principal); Y92.019 Unspecified place in single-family (private) house as the place of occurrence of the external cause; C61 Malignant neoplasm of prostate; I48.91 Unspecified atrial fibrillation; E78.5 Hyperlipidemia, unspecified; Z79.01 Long term (current) use of anticoagulants; Z79.02 Long term (current) use of antithrombotics/antiplatelets; Z79.52 Long term (current) use of systemic steroids; Z87.891 Personal history of nicotine dependence; Z92.3 Personal history of irradiation
CPT/HCPCS: 36415; 80048; 80076; 85025; 93005; 99283

== ENCOUNTER 2021-09-29 06:01 | Outpatient (REF) | payer OTHER, SELFPAY ==
[2021-09-29 12:03] LABS: Prostate Specific Antigen < 0.05 ng/mL (<0.05-4.0)
[2021-10-08 11:56] LABS: Testosterone, Total <1 ng/dL (250-1100)
== END 2021-09-29 06:02 | disposition home or self-care (01) ==
LOC: HO.HMGCLDS 06:01
PROVIDERS: Visit Provider Urology
DX: Z12.5 Encounter for screening for malignant neoplasm of prostate (principal); R97.21 Rising PSA following treatment for malignant neoplasm of prostate
CPT/HCPCS: 36415; 84153; 84403

== ENCOUNTER → 2021-10-13 10:00 | Outpatient (BNVA) | payer OTHER, SELFPAY | PROVIDERS: PCP Internal Medicine; Visit Provider Urology | DX: C61 Malignant neoplasm of prostate (principal); R97.21 Rising PSA following treatment for malignant neoplasm of prostate | CPT/HCPCS: 99212; Q3014 ==

== ENCOUNTER 2022-01-05 10:56 | Outpatient (REF) | payer OTHER, SELFPAY ==
[2022-01-05 14:39] LABS: Prostate Specific Antigen < 0.05 ng/mL (<0.05-4.0)
[2022-01-14 11:27] LABS: Testosterone, Total <1 ng/dL (250-1100)
== END 2022-01-05 10:57 | disposition home or self-care (01) ==
LOC: HO.HMGCLDS 10:56
PROVIDERS: PCP Student in an Organized Health Care Education/Training Program; Visit Provider Urology
DX: Z12.5 Encounter for screening for malignant neoplasm of prostate (principal); R97.21 Rising PSA following treatment for malignant neoplasm of prostate
CPT/HCPCS: 36415; 84153; 84403

== ENCOUNTER 2022-01-19 08:01 | Emergency (ER) | payer OTHER, SELFPAY ==
--- NOTE | ~2022-01-19 | CT_ITS ---
EXAMINATION: CTA CHEST, ABDOMEN AND PELVIS WITHOUT AND WITH CONTRAST CLINICAL INFORMATION: Question dissection. TECHNIQUE: Multiple axial images were obtained through the chest, abdomen and pelvis before and after administration of IV contrast. 70 mL of Omnipaque 350 was administered intravenously. Images were evaluated on independent dedicated 3-D workstation and 3-D images were reconstructed with concurrent radiologist supervision and subsequently interpreted. This CT examination was performed using dose optimization techniques as appropriate, variously including the following: *Automated exposure control *Adjustment of mA and/or kV according to patient size (this includes techniques or standardized protocols for targeted exams where dose is matched to indication/reason for exam; i.e. extremities or head) *Use of iterative reconstruction technique COMPARISON: No prior chest CT. CT cans of the abdomen and pelvis dating between December 01, 2020 and August 25, 2018. DLP: 747 mGy-cm. FINDINGS: VASCULAR: 1. Ascending thoracic aorta: Mildly atherosclerotic but patent. No dissection. 2. Thoracic aortic arch: Mildly atherosclerotic but patent. No dissection. 3. Descending thoracic aorta: Mildly atherosclerotic but patent. No dissection. 4. Mesenteric arteries: Normal variant direct origin of the left gastric artery from the aorta. Normal variant origin of the left hepatic artery from the left gastric artery. Patent origins of the celiac, left gastric, and superior mesenteric arteries. Suspect moderate stenosis at the origin of the inferior mesenteric artery, with poststenotic dilation. 5. Renal arteries: Single renal arteries, bilaterally. No evidence of hemodynamically significant stenosis. 6. Abdominal aorta: Mildly atherosclerotic and mildly ectatic. No dissection. 7. Right iliofemoral system: Mildly atherosclerotic but patent. No dissection. 8. Left iliofemoral system: Mildly atherosclerotic but patent. No dissection. NONVASCULAR: Lungs: Mild to moderate emphysema. No lung nodule or infiltrate identified. Mediastinum: Moderate to severe coronary arterial calcification. Calcification of the aortic valve. Heart normal in size. Trace pericardial fluid. No hilar or mediastinal lymphadenopathy by size criteria. Pleura: No significant effusion or pneumothorax appreciated. No pleural mass or thickening seen. Chest Wall/Axilla: Unremarkable. ABDOMEN/PELVIS: Liver, Gallbladder, Biliary Tree: The liver appears unremarkable in size, shape, and attenuation. No focal hepatic lesion or biliary ductal dilatation is appreciated. Unremarkable appearance of the gallbladder. Pancreas: Unremarkable. Spleen: Unremarkable. Adrenal Glands: No significant radiographic change in approximately 4 cm or less, benign left adrenal adenomata which, on noncontrast CT scan from August 2018 demonstrated Hounsfield unit density of -7. Kidneys and Ureters: Delayed enhancement of the left kidney with questionable mildly asymmetric perinephric stranding on the left. Suspect approximately 0.9 cm left UPJ stone (image 83, series 10), without obvious hydronephrosis. No stone or hydronephrosis identified on the right. Bilateral parapelvic renal cysts. Bladder: Unremarkable. Gastrointestinal Tract: Unremarkable appearance of the stomach and small bowel. Extensive colonic diverticulosis, without evidence of diverticulitis. Normal-appearing distal ileum. Suspect appendectomy. No evidence of appendicitis. Abdominal Wall: No hernia is demonstrated. Lymph Nodes: No adenopathy by size criteria. Pelvic Viscera: Prostate fiduciary markers. Osseous Structures: Degenerative changes of the lower lumbar spine. CT/CT angio abdomen pelvis IMPRESSION: No evidence of aortic dissection. Delayed enhancement of the left kidney with questionable mildly asymmetric perinephric stranding on the left. Suspect approximately 0.9 cm left UPJ stone without obvious hydronephrosis. Differential diagnosis of these findings includes, but is not limited to, early, partially, or nonobstructing left UPJ stone and/or, less likely, left pyelonephritis, etc. Additional findings, as above.
--- NOTE | ~2022-01-19 | XR_ITS ---
EXAMINATION: XR CHEST CLINICAL INFORMATION: Chest pain COMPARISON: None TECHNIQUE: Frontal view of the chest was obtained. FINDINGS: Cardiac silhouette is normal in size. The lungs are well aerated. There is no lobar consolidation. No pleural effusion or pneumothorax. XR/XR chest 1V IMPRESSION: No acute pulmonary pathology.
[2022-01-19 08:10] VITALS: BP 136/86; BP 160/60; PULSE 70; PULSE 72; RESP 18; TEMP 36.9; O2SAT 98; BMI 31.1
[2022-01-19 09:55] LABS: MANUAL DIFF FLAG NO
[2022-01-19 09:57] LABS: Basophils Percent Auto 0.3 % (0-2); Eosinophils Absolute Auto 0.2 X10*3/uL (0.0-0.4); Eosinophils Percent Auto 2.3 % (0-4); Hematocrit 33.2 % (42.0-52.0); Hemoglobin 11.2 g/dl (14.0-18.0); Imm Gran Abs Auto 0.03 X10*3/uL (0.00-0.03); Imm Gran Pct Auto 0.4 % (0.0-0.4); Lymphocytes Absolute Auto 0.7 X10*3/uL (1.2-4.9); Lymphocytes Percent Auto 9.4 % (20-40); Mean Corpuscular HGB Conc 33.7 g/dl (31.0-36.0); Mean Corpuscular Hemoglobin 29.7 pg (27.0-33.0); Mean Corpuscular Volume 88.1 fL (80.0-98.0); Mean Platelet Volume 9.8 fL (9.4-12.4); Monocytes Absolute Auto 0.5 X10*3/uL (0.1-1.2); Monocytes Percent Auto 6.8 % (2-11); Neutrophils Absolute Auto 5.9 x10*3/uL (2.0-8.3); Neutrophils Percent Auto 80.8 % (45-73); Platelet Count 211 X10*3/uL (160-400); Red Blood Count 3.77 X10*6/uL (4.60-5.80); Red Cell Distribution Width 13.9 % (11.0-16.0); White Blood Count 7.3 X10*3/uL (4.8-10.8)
--- NOTE | 2022-01-19 10:08 | ED_ITS ---
HPI - Chest Pain General Chief Complaint: Arrhythmia/Palpitations Stated Complaint: CHEST TO LOW BACK PAIN, SINCE T-1 Time Seen by Provider: 01/19/22 08:14 History of Present Illness HPI narrative: Patient is a 66-year-old male presented today with having chest pain that is in the left arm left shoulder radiating to the back. It is sharp. It lasts for few seconds. Patient has a history of hypertension hypercholesterolemia. Positive history of borderline diabetes. History of atrial fibrillation currently on Eliquis. History of prostate cancer on treatment. Patient denies having similar symptoms in the past. The pain is very sharp very abrupt worse with movement. Patient is from home. No coughing or congestion upper respiratory symptoms that is new. No diaphoresis. No abdominal pain or nausea no vomiting. No recent travel. No leg swelling. Related Data Home Medications Medication Instructions Recorded Confirmed apixaban 5 mg tablet 5 mg PO BID 02/27/20 01/19/22 albuterol sulfate 90 mcg/actuation 1 puff inhalation Q6H PRN 05/27/20 01/19/22 aerosol inhaler Shortness Of Breath umeclidinium 62.5 mcg/actuation 1 inh inhalation DAILY 05/27/20 01/19/22 blister powder for inhalation fluticasone 250 mcg-salmeterol 50 1 inh inhalation BID 12/17/20 01/19/22 mcg/dose blistr powdr for inhalation (Virgilioxela Inhub) rosuvastatin 20 mg tablet 20 mg PO BEDTIME 07/08/21 01/19/22 amlodipine 5 mg tablet 5 mg PO DAILY@1700 01/18/22 01/19/22 tamsulosin 0.4 mg capsule 0.8 mg PO DAILY@1700 01/19/22 01/19/22 Previous Rx's Medication Instructions Recorded abiraterone 250 mg tablet 500 mg PO DAILY 90 days #180 tabs 07/09/21 prednisone 5 mg tablet 5 mg PO DAILY 30 days #30 tabs 10/19/21 Allergies Allergy/AdvReac Type Severity Reaction Status Date / Time No Known Allergies Allergy Verified 01/18/22 11:17 Review of Systems Review of Systems: Positive chest pain No shortness of breath no diaphoresis Yes all other systems are reviewed and are negative PMFSH Past Medical History Attestation statement: The following information was validated with the patient. Medical History Atrial fibrillation Bladder outlet obstruction COPD (chronic obstructive pulmonary disease) Current use of equipment sterilizer anticoagulation History of prostate cancer History of radiation therapy Hypercholesterolemia Nocturia Pre-diabetes Weak urinary stream Surgical History H/O tooth extraction History of prostate biopsy Family History Family History Father Brain cancer Mother Pancreatic cancer Brother Drug overdose Brother Drug overdose Brother Pancreatic cancer Brother No problems noted. Brother No problems noted. Sister No problems noted. Social History Social History Household Members: None Housing: Apartment Housing Other:: Lives in a 1 room efficiency Are you a primary home care chaplain to a significant other at home: No Do you presently have visiting nurse or other home services: No Alcohol intake: former Year quit: 2019 Patient Tobacco Use Status: Former Tobacco user Quit Date: 2.5 years ago Years Smoked: 38 Advance Directives: Yes Advance Directives Information Provided: Yes Advance Directives on File: No service: No Current occupational status: retired Physical Exam Vital Signs: Vital Signs: Last Vital Signs Temp 97.7 F 01/19/22 11:14 Pulse 64 01/19/22 11:14 Resp 12 01/19/22 11:14 BP 165/80 H 01/19/22 11:14 Pulse Ox 98 01/19/22 11:14 O2 Del Method 01/19/22 11:14 BMI result Body Mass Index 31.1 Appearance: Alert. Oriented X3. No acute distress. Eyes: Pupils equal, round and reactive to light. ENT: Pharynx normal. Neck: Normal inspection. Neck supple. No lymph nodes noted. No crepitus CVS: Normal heart rate and rhythm. Pulses normal. Normal S1 and S2 Respiratory: No respiratory distress. Breath sounds normal. No Wheezing. No rales Abdomen: Soft and nontender. No rigidity. No distention. good BS x4 Skin: Skin warm and dry. Normal skin color. Normal skin turgor. Extremities: No lower extremity edema. Neurovascular intact to all extremities. No Lacerations. No Rash Neuro: Oriented X 3. No motor deficit. No sensory deficit. Moving all extermities. No slurred speech Medications Administered Discontinued Medications Generic Name Dose Route Start Last Admin Trade Name Daphnie PRN Reason Stop Dose Admin Aspirin 324 mg 01/19/22 09:10 01/19/22 09:38 Aspirin 81 Mg Tab.Chew PO 01/19/22 09:11 Not Given ONCE ONE Iohexol 70 ml 01/19/22 11:14 01/19/22 11:15 Iohexol 350 Mg/Ml 75 Ml Infus..Btl IV 01/19/22 11:15 70 ml ONCE ONE Administration MDM - Chest Pain MDM Narrative Medical decision making narrative: Patient is 66 years old with a history of prostat cancer, with history of hypertension. History of atrial fibrillation. Patient presented today with chest pain that is very sharp 1-2 seconds from the front radiating to the back. Patient's EKG showed a sinus pattern heart rate was 70 there is a right bundle-branch block noted. There is nonspecific ST segment changes over the lateral leads. These EKG findings are not new. First set of cardiac enzyme was negative. Chest x-ray was negative for any pneumonia pneumothorax. CTA of the chest abdomen pelvis was ordered to rule out dissection. We will go ahead and get 2nd set of troponin. If they are negative patient history atypical for ACS. Patient has low risk for PE given he is compliant with taking his Eliquis. In stable condition. Medical Records Data Attestation: I reviewed the patient's medical records. Lab Data Attestation: I reviewed the patient's lab results. Result diagrams: 01/19/22 09:41 01/19/22 09:41 Labs: Lab Results 01/19/22 01/19/22 01/19/22 Range/Units 09:41 09:41 09:41 WBC 7.3 (4.8-10.8) X10*3/uL RBC 3.77 L (4.60-5.80) X10*6/uL Hgb 11.2 L (14.0-18.0) g/dl Hct 33.2 L (42.0-52.0) % MCV 88.1 (80.0-98.0) fL MCH 29.7 (27.0-33.0) pg MCHC 33.7 (31.0-36.0) g/dl RDW 13.9 (11.0-16.0) % Plt Count 211 (160-400) X10*3/uL MPV 9.8 (9.4-12.4) fL Immature Gran % (Auto) 0.4 (0.0-0.4) % Neut % (Auto) 80.8 H (45-73) % Lymph % (Auto) 9.4 L (20-40) % [place] % (Auto) 6.8 (2-11) % Eos % (Auto) 2.3 (0-4) % Baso % (Auto) 0.3 (0-2) % Lymph # (Auto) 0.7 L (1.2-4.9) X10*3/uL [place] # (Auto) 0.5 (0.1-1.2) X10*3/uL Eos # (Auto) 0.2 (0.0-0.4) X10*3/uL Baso # (Auto) 0.0 (0.0-0.2) X10*3/uL Abs Immat Gran (auto) 0.03 (0.00-0.03) X10*3/uL Absolute Neuts (auto) 5.9 (2.0-8.3) x10*3/uL Absolute Nucleated RBC 0.000 (0.0-0.012) X10*3/uL Nucleated RBC % (auto) 0.0 (0.0-0.2) /100WBC Sodium 141 (135-145) mmol/L Potassium 3.8 (3.3-5.1) mmol/L Chloride 107 (96-108) mmol/L Carbon Dioxide 23 (22-29) mmol/L Anion Gap 15 (12-20) BUN 13 (9-16) mg/dL Creatinine 0.63 (0.5-1.4) mg/dL Estim Creat Clear Calc 144.0 Estimated GFR > 60 Random Glucose 111 (60-115) mg/dL Calcium 8.9 (8.4-10.2) mg/dL Troponin I High Sens 8.0 (<3.5-35.0) ng/L Influenza Type A (PCR) (Negative) Influenza Type B (PCR) (Negative) RSV RNA Qual (PCR) (Negative) SARS-CoV-2 RNA (RT-PCR) (Negative) 01/19/22 Range/Units 09:41 WBC (4.8-10.8) X10*3/uL RBC (4.60-5.80) X10*6/uL Hgb (14.0-18.0) g/dl Hct (42.0-52.0) % MCV (80.0-98.0) fL MCH (27.0-33.0) pg MCHC (31.0-36.0) g/dl RDW (11.0-16.0) % Plt Count (160-400) X10*3/uL MPV (9.4-12.4) fL Immature Gran % (Auto) (0.0-0.4) % Neut % (Auto) (45-73) % Lymph % (Auto) (20-40) % [place] % (Auto) (2-11) % Eos % (Auto) (0-4) % Baso % (Auto) (0-2) % Lymph # (Auto) (1.2-4.9) X10*3/uL [place] # (Auto) (0.1-1.2) X10*3/uL Eos # (Auto) (0.0-0.4) X10*3/uL Baso # (Auto) (0.0-0.2) X10*3/uL Abs Immat Gran (auto) (0.00-0.03) X10*3/uL Absolute Neuts (auto) (2.0-8.3) x10*3/uL Absolute Nucleated RBC (0.0-0.012) X10*3/uL Nucleated RBC % (auto) (0.0-0.2) /100WBC Sodium (135-145) mmol/L Potassium (3.3-5.1) mmol/L Chloride (96-108) mmol/L Carbon Dioxide (22-29) mmol/L Anion Gap (12-20) BUN (9-16) mg/dL Creatinine (0.5-1.4) mg/dL Estim Creat Clear Calc Estimated GFR Random Glucose (60-115) mg/dL Calcium (8.4-10.2) mg/dL Troponin I High Sens (<3.5-35.0) ng/L Influenza Type A (PCR) NEGATIVE (Negative) Influenza Type B (PCR) NEGATIVE (Negative) RSV RNA Qual (PCR) NEGATIVE (Negative) SARS-CoV-2 RNA (RT-PCR) NEGATIVE (Negative) Discharge Plan Discharge Clinical Impression: Chest pain Patient Disposition: Still a Patient Prescriptions: No Action abiraterone 250 mg tablet 500 mg PO DAILY 90 Days Qty: 180 3RF Rx Instructions: must be taken on empty stomach, at least 1 hr before or 2 hrs after a meal/food prednisone 5 mg tablet 5 mg PO DAILY 30 Days Qty: 30 5RF tamsulosin 0.4 mg capsule 0.8 mg PO DAILY@1700 umeclidinium 62.5 mcg/actuation blister with device 1 inh inhalation DAILY albuterol sulfate 90 mcg/actuation HFA aerosol inhaler 1 puff inhalation Q6H PRN (Reason: Shortness Of Breath) apixaban 5 mg tablet 5 mg PO BID fluticasone propion-salmeterol [Wixela Inhub] 250-50 mcg/dose blister with device 1 inh inhalation BID rosuvastatin 20 mg tablet 20 mg PO BEDTIME amlodipine 5 mg tablet 5 mg PO DAILY@1700
[2022-01-19 10:15] LABS: Anion Gap 15 (12-20); Blood Urea Nitrogen 13 mg/dL (9-16); Calcium 8.9 mg/dL (8.4-10.2); Carbon Dioxide 23 mmol/L (22-29); Chloride 107 mmol/L (96-108); Estimated Glomerular Filt Rate > 60; Glucose Random 111 mg/dL (60-115); Potassium 3.8 mmol/L (3.3-5.1); Sodium 141 mmol/L (135-145)
[2022-01-19 10:33] LABS: Influenza A PCR NEGATIVE (Negative); Influenza B PCR NEGATIVE (Negative); Resp Syncy Virus RNA Qual PCR NEGATIVE (Negative); SARS COV2 PCR INHOUSE NEGATIVE (Negative)
--- NOTE | 2022-01-19 10:42 | PHA.MEDREC ---
Pharmacy Consult ? Medication Reconciliation Pharmacy has completed the medication reconciliation.Patient knew most of his medications and was able to list them for me. The other medications showing on the recent claim history he was able to tell me if he was still taking them or had stopped them when I read the names of them for him. He only took his prednisone and 2 inhalers this morning and skipped other medications because he was unsure what may be making his situation worse.
[2022-01-19 11:14] VITALS: BP 165/80; PULSE 64; RESP 12; TEMP 36.5; O2SAT 98
[2022-01-19] MEDS: iohexoL 350 MG/ML 75 ML INFUS..BTL 70 ML IV (11:15)
[2022-01-19 12:55] LABS: Troponin-I High Sensitivity 8.2 ng/L (<3.5-35.0)
[2022-01-19 14:14] VITALS: BP 180/77; PULSE 65; RESP 13; O2SAT 99
== END 2022-01-19 14:50 | disposition home or self-care (01) ==
PROVIDERS: Emergency Medicine Emergency Medical Services; Emergency Provider Emergency Medicine; PCP Student in an Organized Health Care Education/Training Program
DX: R07.9 Chest pain, unspecified (principal); M54.50 Low back pain, unspecified; N20.0 Calculus of kidney; Z20.822 Contact with and (suspected) exposure to COVID-19; I10 Essential (primary) hypertension; E78.5 Hyperlipidemia, unspecified; I48.91 Unspecified atrial fibrillation; C61 Malignant neoplasm of prostate; Z92.3 Personal history of irradiation; Z87.891 Personal history of nicotine dependence; Z79.01 Long term (current) use of anticoagulants; Z79.02 Long term (current) use of antithrombotics/antiplatelets; Z79.899 Other long term (current) drug therapy
CPT/HCPCS: 0241U; 36415; 71045; 71275; 74174; 80048; 84484; 85025; 99284; Q9967

== ENCOUNTER → 2022-01-20 08:26 | Outpatient (BNVA) | payer OTHER, SELFPAY | PROVIDERS: PCP Student in an Organized Health Care Education/Training Program; Visit Provider Urology | DX: R97.21 Rising PSA following treatment for malignant neoplasm of prostate (principal); C61 Malignant neoplasm of prostate | CPT/HCPCS: Q3014 ==

== ENCOUNTER 2022-03-31 07:35 | Outpatient (REF) | payer OTHER, SELFPAY ==
[2022-03-31 12:23] LABS: Prostate Specific Antigen 0.19 ng/mL (<0.05-4.0)
[2022-04-06 12:14] LABS: Testosterone, Total 79 ng/dL (250-1100)
== END 2022-03-31 07:36 | disposition home or self-care (01) ==
LOC: HO.HMGCLDS 07:35
PROVIDERS: PCP Student in an Organized Health Care Education/Training Program; Visit Provider Urology
DX: C61 Malignant neoplasm of prostate (principal)
CPT/HCPCS: 36415; 84153; 84403

== ENCOUNTER → 2022-04-21 13:03 | Outpatient (BNVA) | payer OTHER, SELFPAY | PROVIDERS: PCP Student in an Organized Health Care Education/Training Program; Visit Provider Urology | DX: N45.1 Epididymitis (principal); C61 Malignant neoplasm of prostate | CPT/HCPCS: 99212 ==

== ENCOUNTER 2022-07-06 09:51 | Outpatient (REF) | payer OTHER, SELFPAY ==
[2022-07-06 12:56] LABS: Prostate Specific Antigen 2.76 ng/mL (<0.05-4.0)
[2022-07-13 12:49] LABS: Testosterone, Total 111 ng/dL (250-1100)
== END 2022-07-06 09:52 | disposition home or self-care (01) ==
LOC: HO.HMGCLDS 09:51
PROVIDERS: PCP Student in an Organized Health Care Education/Training Program; Visit Provider Urology
DX: Z12.5 Encounter for screening for malignant neoplasm of prostate (principal); R97.21 Rising PSA following treatment for malignant neoplasm of prostate
CPT/HCPCS: 36415; 84153; 84403

== ENCOUNTER → 2022-07-22 09:36 | Outpatient (BNVA) | payer OTHER, SELFPAY | PROVIDERS: PCP Student in an Organized Health Care Education/Training Program; Visit Provider Urology | DX: R97.21 Rising PSA following treatment for malignant neoplasm of prostate (principal) | CPT/HCPCS: 99212 ==

== ENCOUNTER 2022-10-13 13:13 | Outpatient (REF) | payer OTHER, SELFPAY ==
[2022-10-13 17:24] LABS: Prostate Specific Antigen 190.17 ng/mL (<0.05-4.0)
== END 2022-10-13 13:14 | disposition home or self-care (01) ==
LOC: HO.HMGCLDS 13:13
PROVIDERS: PCP Student in an Organized Health Care Education/Training Program; Visit Provider Urology
DX: Z12.5 Encounter for screening for malignant neoplasm of prostate (principal); R97.21 Rising PSA following treatment for malignant neoplasm of prostate
CPT/HCPCS: 36415; 84153

== ENCOUNTER 2022-10-26 09:28 | Outpatient (AMB) | payer OTHER, SELFPAY ==
--- NOTE | 2022-10-26 10:09 | MHC.OFFVIS ---
Intake Intake Visit Reasons: 3M PSA(set) Intake Note: Patient is present for Follow Up PSA Urology Med: Tadalafil, Tamsulosin Antibiotic Allergy: None Blood Thinner: Apixaban Pharmacy: [facility] Allergies No Known Allergies Allergy (Verified 10/26/22 10:10) Medication List - Last Reconciled 10/26/22 by Martin Dunn MD albuterol sulfate 90 mcg/actuation 1 puff inhalation Q6H PRN amiodarone 200 mg PO DAILY amlodipine 5 mg PO DAILY@1700 apixaban 5 mg PO BID fluticasone propion-salmeterol 250-50 mcg/dose (Wixela Inhub) 1 inh inhalation BID furosemide 20 mg PO gabapentin 300 mg PO TID PRN losartan 25 mg PO DAILY metoprolol succinate ER 25 mg PO DAILY rosuvastatin 20 mg PO BEDTIME tadalafil 20 mg PO DAILY 30 days tamsulosin 0.8 mg (2 x 0.4 mg) PO DAILY@1700 90 days umeclidinium 62.5 mcg/actuation 1 inh inhalation DAILY HPI HPI Comments History of Present Illness Details Tolu is a very pleasant male. He is a patient of Dr Damon. He seen for the following urologic conditions - prostate cancer recurrent PSA rise PSA spike over past 4 months Testosterone 111 Restart GnRH - bicalutamide 50 mg p.o. daily for 2 weeks Repeat imaging - PSMA Scan Plan for 18 months GnRH and may need anti androgen Biochemical recurrent prostate cancer Prostate cancer: High-grade prostate cancer July 2018 initial therapy XRT with hormones - last GnRH 04/04 - 10/01 - rising PSA - therapy GnRH + oral anti androgen - 02/02 Hold GnRH and antiandrogen PSA 04/03 PSA 30, 07/02 47, 10/01 <0.05, 01/01 <0.1, 04/04 <0.05 T <1, 07/03 <0.1 T <1. 10/02 <0.1, 01/02 <0.1 T <1, 04/05 0.2 T 79, 07/04 P 2.76 T 111, 11/03 190 T111 Prostate cancer was diagnosed July 2018 Dr Dunn. Diagnosis was reached by needle biopsy, for elevated PSA, PSA at diagnosis 49,size at TRUS 35cc. The Clau grade is July 2018 5 cores positive 2/12 , 4+4 = 8 CHIRINOS, LMM 3/ , 4+3 = 7, LMB, LLB, LML 5-50% of cores. TNM Classification of Malignant Tumours (TNM) T1c, Group 4. The D'Vicky (NCCN) risk category is High Risk (PSA > 20, Gl 8+, T3), Group 4. Initial therapy included XRT with 18 months GnRH Imaging 09/05/18 GnRH 6M 12/[address] Wade at [facility] Recent labs included 07/01 PSA 0.05 08/31 PSA 0.3, T 6 - no GnRH 09/30 PSA 1.3 T 8 - 03/02 PSA 16 T 94 Recent imaging included 08/30 , a bone scan nonspecific changes consistent with arthritis 08/30 , a CT (computed tomography) scan, with no evidence of metastasis. - 04/03 bone scan negative - arthritis on right shoulder - 04/03 CT scan no evidence of metastatic disease Therapy for rising PSA after radiation 07/02 07/02 GnRH and Xtandi 01/01 GnRH and Zytiga 04/04 GnRH Therapeutic plan continue hormonal control and surveillance [facility] Medical History Atrial fibrillation Bladder outlet obstruction COPD (chronic obstructive pulmonary disease) Current use of computer terminal operator anticoagulation History of prostate cancer History of radiation therapy Hypercholesterolemia Nocturia Pre-diabetes Weak urinary stream Surgical History H/O tooth extraction History of prostate biopsy Family History Father Brain cancer Mother Pancreatic cancer Brother Drug overdose Brother Drug overdose Brother Pancreatic cancer Brother No problems noted. Brother No problems noted. Sister No problems noted. Social History Household Members: None Housing: Apartment Housing Other:: Lives in a 1 room efficiency Are you a primary pet care technician to a significant other at home: No Do you presently have visiting nurse or other home services: No Alcohol intake: former Year quit: 2019 Patient Tobacco Use Status: Former Tobacco user Quit Date: 2.5 years ago Years Smoked: 38 service: No Current occupational status: retired Review of Systems Const Denies chills and Denies fever(s) Card Reports no additional complaints and Denies syncope Resp Denies cough GI Denies abdominal pain and Denies heartburn Reports as per HPI and Denies change in libido Neuro Denies syncope Psych Denies change in libido Endo Denies change in libido Physical Exam Const General: cooperative, healthy appearing, comfortable and no acute distress Orientation/consciousness: patient oriented x3 HEENT Face and sinus: Yes normal facial exam Mouth: moist mucous membranes Neck Neck: Yes normal visual inspection, Yes full ROM and Yes trachea midline Chest Chest palpation & inspection: normal inspection of the chest Resp Effort & Inspection: normal respiratory effort, able to speak in complete sentences and no respiratory distress GI Inspection: Yes normal to inspection Back/Spine/Pelvis Cervical Spine: normal cervical lordosis Thoracic/Lumbar Spine: thoracic and lumbar spine normal to inspection Skin General skin exam: no rashes or lesions noted Neuro General: patient oriented x3, gait normal, tone normal and moves all extremities Extrem General: Yes normal to inspection and Yes capillary refill normal Assessment & Plan Assessment & Plan (1) Erectile dysfunction due to and not concurrent with radiation therapy: Code(s): N52.35 - Erectile dysfunction following radiation therapy (2) Prostate cancer: Comment: High-grade prostate cancer external beam radiation July 2018 - 18 months GnRH Recurrent PSA June 2020 - GnRH and antiandrogen Code(s): C61 - Malignant neoplasm of prostate (3) Rising PSA following treatment for malignant neoplasm of prostate: Code(s): R97.21 - Rising PSA following treatment for malignant neoplasm of prostate Plan PET-CT Start bicalutamide GnRH injection in 2 weeks Orders: Orders Blood Urea Nitrogen Today R39.15 - Urgency of urination, R97.21 - Rising PSA following treatment for malignant neoplasm of prostate Creatinine Today R39.15 - Urgency of urination, R97.21 - Rising PSA following treatment for malignant neoplasm of prostate PET CT fusion skull to thigh Today C61 - Malignant neoplasm of prostate, R97.21 - Rising PSA following treatment for malignant neoplasm of prostate Medications: New bicalutamide 50 mg PO DAILY 30 tabs 0RF 30 days C61 - Malignant neoplasm of prostate, R97.21 - Rising PSA following treatment for malignant neoplasm of prostate Patient Instructions: Imaging studies, laboratory and physical exam results were discussed and reviewed in detail. No major barriers to patient understanding were identified. An opportunity to ask questions regarding the treatment plan was provided. All questions were answered. The patient expressed understanding and agreement with the above treatment plan. The patient is aware they should contact our office by phone for worsening of their current condition or the appearance of new urologic symptoms. Compliance is encouraged with any medications and followup testing that is ordered. It is a privilege to participate in the urologic care of your patient. If you have any questions or concerns regarding treatment for the above conditions, or other urologic issues, please do not hesitate to contact me. The office telephone contact is [phone]. This note is constructed using voice recognition software. While every effort has been made to ensure accuracy information assurance officer errors may have been included. Yours sincerely, Dr Martin Dunn MD, [facility] - Urology Providers of Expert, Compassionate Care for the Genitourinary System Coding Level of Care Code Est Pt Level 4 (05691) Diagnoses Erectile dysfunction due to and not concurrent with radiation therapy N52.35 Prostate cancer C61 Rising PSA following treatment for malignant neoplasm of prostate R97.21
== END 2022-10-26 11:18 | disposition home or self-care (01) ==
PROVIDERS: Visit Provider Urology
DX: N52.35 Erectile dysfunction following radiation therapy (principal); C61 Malignant neoplasm of prostate; R97.21 Rising PSA following treatment for malignant neoplasm of prostate
CPT/HCPCS: 99214

== ENCOUNTER → 2022-10-26 09:28 | Outpatient (BNVA) | payer OTHER, SELFPAY | PROVIDERS: Visit Provider Urology | DX: C61 Malignant neoplasm of prostate (principal); R97.21 Rising PSA following treatment for malignant neoplasm of prostate; N52.35 Erectile dysfunction following radiation therapy | CPT/HCPCS: 99212 ==

== ENCOUNTER 2022-11-19 08:51 | Outpatient (AMB) | payer OTHER, SELFPAY ==
--- NOTE | 2022-11-19 08:55 | AM.OFFVISNUR ---
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 Coding Assessment & Plan Assessment & Plan Orders: Orders AMB Leuprolide Injection - Practice Supplied Today C61 - Malignant neoplasm of prostate
== END 2022-11-19 09:26 | disposition home or self-care (01) ==
PROVIDERS: PCP Student in an Organized Health Care Education/Training Program; Visit Provider Urology
DX: C61 Malignant neoplasm of prostate (principal)

== ENCOUNTER → 2022-11-19 08:51 | Outpatient (BNVA) | payer OTHER, SELFPAY | PROVIDERS: PCP Student in an Organized Health Care Education/Training Program; Visit Provider Urology | DX: C61 Malignant neoplasm of prostate (principal) | CPT/HCPCS: 96402; J9217 ==

== ENCOUNTER 2022-12-29 11:15 | Outpatient (AMB) | payer OTHER, SELFPAY ==
--- NOTE | 2022-12-29 11:41 | A.OFFVIS_ITS ---
Intake Intake Visit Reasons: PET CT- follow up(Set) Intake Note: Patient is present for PET CT results Urology Med: Tadalafil, Tamsulosin Antibiotic Allergy: None Blood Thinner: Apixaban Pharmacy: [facility] Progressive Die Maker Required: No Accompanied by: Self / Same As Patient Allergies No Known Allergies Allergy (Verified 12/29/22 11:42) Medication List - Last Reconciled 12/29/22 by Martin Dunn MD albuterol sulfate 90 mcg/actuation 1 puff inhalation Q6H PRN amiodarone 200 mg PO DAILY amlodipine 5 mg PO DAILY@1700 apixaban 5 mg PO BID bicalutamide 50 mg PO DAILY 30 days fluticasone propion-salmeterol 250-50 mcg/dose (Wixela Inhub) 1 inh inhalation BID furosemide 20 mg PO gabapentin 300 mg PO TID PRN leuprolide acetate (6 month) (Eligard) 45 mg subcut [id number] losartan 25 mg PO DAILY metoprolol succinate ER 25 mg PO DAILY rosuvastatin 20 mg PO BEDTIME tadalafil 20 mg PO DAILY 30 days tamsulosin 0.8 mg (2 x 0.4 mg) PO DAILY@1700 90 days umeclidinium 62.5 mcg/actuation 1 inh inhalation DAILY HPI HPI Comments History of Present Illness Details Tolu is a very pleasant male. He is a patient of Dr Damon. He seen for the following urologic conditions - prostate cancer recurrent PSA rise Telemedicine Evaluation 15 min Consultation Doxmarkedup Martha Video attempted Discussed imaging findings Restart abiraterone Will need Prolia at next visit 12/04 Biochemical recurrent prostate canc er - PET-CT metastatic disease in the spine - add abiraterone with prednisone Last GnRH 12/04 - evidence of metastatic disease Prostate cancer: High-grade prostate cancer July 2018 initial therapy XRT with hormones - last GnRH 04/04 - 10/01 - rising PSA - therapy GnRH + or al anti androgen - 02/02 Hold GnRH and antiandrogen PSA 04/03 PSA 30, 07/02 47, 10/01 <0.05, 01/01 <0.1, 04/04 <0.05 T <1, 07/03 <0.1 T <1. 10/02 <0.1, 01/02 <0.1 T <1, 04/05 0.2 T 79, 07/04 P 2.76 T 111, 11/03 190 T111 Prostate cancer was diagnosed July 2018 Dr Dunn. Diagnosis was reached by needle biopsy, for elevated PSA, PSA at diagnosis 49,size at TRUS 35cc. The Clau grade is July 201807/23 cores positive 2 , 4+4 = 8 CHIRINOS, LMM 3/ , 4+3 = 7, LMB, LLB, LML 5-50% of cores. TNM Classification of Malignant Tumours (TNM) T1c, Group 4. The D'Vicky (NCCN) risk category is High Risk (PSA > 20, Gl 8+, T3), Group 4. Initial therapy included XRT with 18 months GnRH Imaging 09/05/18 GnRH 6M 12/[address] Wade at [facility] Recent labs included 07/01 PSA 0.05 08/31 PSA 0.3, T 6 - no GnRH 09/30 PSA 1.3 T 8 - 03/02 PSA 16 T 94 Recent imaging included 08/30 , a bone scan nonspecific changes consistent with arthritis 08/30 , a CT (computed tomography) scan, with no evidence of metastasis. - 04/03 bone scan negative - arthritis on right shoulder - 04/03 CT scan no evidence of metastatic disease Therapy for rising PSA after radiation 07/02 07/02 GnRH and Xtandi 01/01 GnRH and Zytiga 04/04 GnRH Therapeutic plan continue hormonal control and surveillance [facility] Medical History Atrial fibrillation Bladder outlet obstruction COPD (chronic obstructive pulmonary disease) Current use of equipment operator intermodal yard anticoagulation History of prostate cancer History of radiation therapy Hypercholesterolemia Nocturia Pre-diabetes Weak urinary stream Surgical History H/O tooth extraction History of prostate biopsy Family History Father Brain cancer Mother Pancreatic cancer Brother Drug overdose Brother Drug overdose Brother Pancreatic cancer Brother No problems noted. Brother No problems noted. Sister No problems noted. Social History Household Members: None Housing: Apartment Housing Other:: Lives in a 1 room efficiency Are you a primary care professionals to a significant other at home: No Do you presently have visiting nurse or other home services: No Alcohol intake: former Year quit: 2019 Patient Tobacco Use Status: Former Tobacco user Quit Date: 2.5 years ago Years Smoked: 38 service: No Current occupational status: retired Review of Systems Const All systems reviewed & are unremarkable except as noted in HPI and below Reports no additional complaints Resp Reports no additional complaints GI Reports no additional complaints Reports as per HPI Musc Reports no additional complaints Physical Exam Telemedicine evaluation Appropriate responses Regular breathing rate and rhythm HEENT Head: Yes normal to inspection Ears: hearing grossly normal bilaterally Eyes General: appearance normal, both eyes and all related structures Neck Neck: Yes normal visual inspection Chest Chest palpation & inspection: normal inspection of the chest Resp Effort & Inspection: normal respiratory effort and able to speak in complete sentences Assessment & Plan Assessment & Plan (1) Prostate cancer metastatic to bone: Code(s): C61 - Malignant neoplasm of prostate; C79.51 - Secondary malignant neoplasm of bone Plan Re-initiated eardrum therapy Will need Prolia at next visit Six week follow-up with PSA Orders: Orders Prostate Specific Antigen 6 Weeks C61 - Malignant neoplasm of prostate Patient Instructions: Imaging studies, laboratory and physical exam results were discussed and reviewed in detail. No major barriers to patient understanding were identified. An opportunity to ask questions regarding the treatment plan was provided. All questions were answered. The patient expressed understanding and agreement with the above treatment plan. The patient is aware they should contact our office by phone for worsening of their current condition or the appearance of new urologic symptoms. Compliance is encouraged with any medications and followup testing that is ordered. It is a privilege to participate in the urologic care of your patient. If you have any questions or concerns regarding treatment for the above conditions, or other urologic issues, please do not hesitate to contact me. The office telephone contact is [phone]. This note is constructed using voice recognition software. While every effort has been made to ensure accuracy vegetable preparer errors may have been included. Yours sincerely, Dr Martin Dunn MD, [facility] - Urology Providers of Expert, Compassionate Care for the Genitourinary System Telehealth Telehealth Location of provider rendering services: practice address Location of patient: address on file Patient Identification confirmed using: Name, : Yes Telehealth method: video Patient verbally consented to treatment: Yes Patient verbally consented to billing insurance company: Yes Patient informed of any privacy concerns related to visit: Yes Coding Level of Care Code Tele Est Pt Level 4 (70816) Diagnoses Prostate cancer metastatic to bone C61; C79.51
== END 2022-12-29 13:59 | disposition home or self-care (01) ==
LOC: HO.HUSH 11:15
PROVIDERS: PCP Student in an Organized Health Care Education/Training Program; Visit Provider Urology
DX: C61 Malignant neoplasm of prostate (principal); C79.51 Secondary malignant neoplasm of bone
CPT/HCPCS: 99213

== ENCOUNTER → 2022-12-29 11:15 | Outpatient (BNVA) | payer OTHER, SELFPAY | PROVIDERS: PCP Student in an Organized Health Care Education/Training Program; Visit Provider Urology ==

== ENCOUNTER 2023-01-31 12:37 | Outpatient (REF) | payer OTHER, SELFPAY ==
[2023-01-31 17:06] LABS: Prostate Specific Antigen 11.17 ng/mL (<0.05-4.0)
== END 2023-01-31 12:38 | disposition home or self-care (01) ==
LOC: HO.HMGCLDS 12:37
PROVIDERS: PCP Student in an Organized Health Care Education/Training Program; Visit Provider Urology
DX: C61 Malignant neoplasm of prostate (principal); Z12.5 Encounter for screening for malignant neoplasm of prostate
CPT/HCPCS: 36415; 84153

== ENCOUNTER 2023-02-16 10:30 | Outpatient (AMB) | payer OTHER, SELFPAY ==
--- NOTE | 2023-02-16 10:57 | A.OFFVIS_ITS ---
Intake Intake Visit Reasons: Prolia/2m/PSA(Set) Allergies No Known Allergies Allergy (Verified 12/29/22 11:42) HPI HPI Comments History of Present Illness Details Tolu is a very pleasant male. He is a patient of Dr Damon. He seen for the following urologic conditions - metastatic home unresponsive high-grad e prostate cancer 02/03 significant reduction in PSA. Cur gregorio 11 Diagnosis metastatic hormone sensitive prostate cancer. Since initiation of abiraterone back pain has significantly resolved Initiate Xgeva monthly Labs and imaging in 3 months with GnRH Continue abiraterone Bone protection in metastatic prostate cancer setting (NCCN MS-75) The NCCN Guidelines Panel recommends screening and treatment for osteoporosis according to guidelines for the general population from the National Osteoporosis Foundation.666 A baseline bone mineral density study should be considered for the patients on ADT. The National Osteoporosis Foundation guidelines include: 1) calcium (1000?1200 mg daily from food and supplements) and vitamin D3 (400?1000 IU daily); and 2) additional treatment for males aged greater than or equal to 50 years with low bone mass (T-score between -1.0 and - 2.5, osteopenia) at the femoral neck, total hip, or lumbar spine by dual-energy x-ray absorptiometry (DEXA) scan and a 10-year probability of hip fracture greater than or equal to 3% A baseline DEXA scan before start of therapy and a follow-up DEXA scan after one year of therapy is recommended by the International Society for Clinical Densitometry to monitor response Denosumab (120mg) every 4 weeks (category 1, preferred) every 3 to 4 weeks is recommended for patients with CRPC and bone metastases to prevent or delay disease-associated SREs. SREs include pathologic fractures, spinal cord compression, operation, or EBRT to bone. The optimal duration of denosumab in patients with bone metastases remains unclear. Oral hygiene, baseline dental evaluation for high-risk individuals, and avoidance of invasive dental surgery during therapy are recommended to reduce the risk of ONJ. If invasive dental surgery is necessary, therapy should be deferred until the dentist confirms that the patient has healed completely from the dental procedure. Supplemental calcium and vitamin D are recommended to prevent hypocalcemia in patients receiving either denosumab or zoledronic acid. Hypocalcemia should be corrected before starting denosumab, and serum calcium monitoring is required for denosumab with repletion as needed. 12/04 Biochemical recurrent prostate canc er - PET-CT metastatic disease in the spine - add abiraterone with prednisone Last GnRH 12/04 - evidence of metastatic disease Prostate cancer: High-grade prostate cancer July 2018 initial therapy XRT with hormones - last GnRH 04/04 - 10/01 - rising PSA - therapy GnRH + or al anti androgen - 02/02 Hold GnRH and antiandrogen PSA 04/03 PSA 30, 07/02 47, 10/01 <0.05, 01/01 <0.1, 04/04 <0.05 T <1, 07/03 <0.1 T <1. 10/02 <0.1, 01/02 <0.1 T <1, 04/05 0.2 T 79, 07/04 P 2.76 T 111, 11/03 190 T111, 02/03 11 Prostate cancer was diagnosed July 2018 Dr Dunn. Diagnosis was reached by needle biopsy, for elevated PSA, PSA at diagnosis 49,size at TRUS 35cc. The Clau grade is July 2018 5 cores positive 2/ , 4+4 = 8 CHIRINOS, LMM 3/ , 4+3 = 7, LMB, LLB, LML 5-50% of cores. TNM Classification of Malignant Tumours (TNM) T1c, Group 4. The D'Vicky (NCCN) risk category is High Risk (PSA > 20, Gl 8+, T3), Group 4. Initial therapy included XRT with 18 months GnRH Imaging 09/05/18 GnRH 6M 12/[address] Wade at [facility] Recent labs included 07/01 PSA 0.05 08/31 PSA 0.3, T 6 - no GnRH 09/30 PSA 1.3 T 8 - 03/02 PSA 16 T 94 Recent imaging included 08/30 , a bone scan nonspecific changes consistent with arthritis 08/30 , a CT (computed tomography) scan, with no evidence of metastasis. - 04/03 bone scan negative - arthritis on right shoulder - 04/03 CT scan no evidence of metastatic disease Therapy for rising PSA after radiation 07/02 07/02 GnRH and Xtandi 01/01 GnRH and Zytiga 04/04 GnRH Therapeutic plan continue hormonal control and surveillance [facility] Medical History Atrial fibrillation Bladder outlet obstruction COPD (chronic obstructive pulmonary disease) Current use of vermin exterminator anticoagulation History of prostate cancer History of radiation therapy Hypercholesterolemia Nocturia Pre-diabetes Weak urinary stream Surgical History H/O tooth extraction History of prostate biopsy Family History Father Brain cancer Mother Pancreatic cancer Brother Drug overdose Brother Drug overdose Brother Pancreatic cancer Brother No problems noted. Brother No problems noted. Sister No problems noted. Social History Household Members: None Housing: Apartment Housing Other:: Lives in a 1 room efficiency Are you a primary direct care specialist to a significant other at home: No Do you presently have visiting nurse or other home services: No Alcohol intake: former Year quit: 2019 Patient Tobacco Use Status: Former Tobacco user Quit Date: 2.5 years ago Years Smoked: 38 service: No Current occupational status: retired Review of Systems Const Denies chills and Denies fever(s) Card Reports no additional complaints and Denies syncope Resp Denies cough GI Denies abdominal pain and Denies heartburn Reports as per HPI and Denies change in libido Neuro Denies syncope Psych Denies change in libido Endo Denies change in libido Physical Exam Const General: cooperative, healthy appearing, comfortable and no acute distress Orientation/consciousness: patient oriented x3 HEENT Face and sinus: Yes normal facial exam Mouth: moist mucous membranes Neck Neck: Yes normal visual inspection, Yes full ROM and Yes trachea midline Chest Chest palpation & inspection: normal inspection of the chest Resp Effort & Inspection: normal respiratory effort, able to speak in complete sentences and no respiratory distress GI Inspection: Yes normal to inspection Back/Spine/Pelvis Cervical Spine: normal cervical lordosis Thoracic/Lumbar Spine: thoracic and lumbar spine normal to inspection Skin General skin exam: no rashes or lesions noted Neuro General: patient oriented x3, gait normal, tone normal and moves all extremities Extrem General: Yes normal to inspection and Yes capillary refill normal Office Meds Prolia 60 mg/mL subcutaneous syringe Performing Provider: Martin Dunn MD [facility] Administered by: Jeanna Morgan RN on 02/16/23 11:24 Dose Route Admin Location Dispensed Lot Number Expiration Date NDC [employer] Cutter 60 mg subcut left arm 1 mL [id number] 06/11/25 37714-783-71 AMGEN Assessment & Plan Assessment & Plan (1) Prostate cancer metastatic to bone: Code(s): C61 - Malignant neoplasm of prostate; C79.51 - Secondary malignant neoplasm of bone (2) Biochemically recurrent castration-sensitive adenocarcinoma of prostate: Code(s): C61 - Malignant neoplasm of prostate; R97.21 - Rising PSA following treatment for malignant neoplasm of prostate; Z19.1 - Hormone sensitive malignancy status Plan 3 month follow-up PSA, T, DEXA, bone scan Orders: Orders Prostate Specific Antigen 3 Months C61 - Malignant neoplasm of prostate, C79.51 - Secondary malignant neoplasm of bone XR DEXA axial skeleton 3 Months C61 - Malignant neoplasm of prostate, C79.51 - Secondary malignant neoplasm of bone AMB Denosumab Injection Practice Supplied Today C61 - Malignant neoplasm of prostate, C79.51 - Secondary malignant neoplasm of bone Testosterone, Total 3 Months C61 - Malignant neoplasm of prostate, C79.51 - Secondary malignant neoplasm of bone NM bone scan whole body 3 Months C61 - Malignant neoplasm of prostate, C79.51 - Secondary malignant neoplasm of bone Referrals Hematology & Oncology Referral C61 - Malignant neoplasm of prostate, C79.51 - Secondary malignant neoplasm of bone Medications: New calcium carbonate (Calcium 500) 500 mg PO BID 90 days 180 tabs 1RF Prostate cancer C61 - Malignant neoplasm of prostate, C79.51 - Secondary malignant neoplasm of bone cholecalciferol (vitamin D3) 400 units PO DAILY 90 days 180 caps 1RF C61 - Malignant neoplasm of prostate, C79.51 - Secondary malignant neoplasm of bone Patient Instructions: Imaging studies, laboratory and physical exam results were discussed and reviewed in detail. No major barriers to patient understanding were identified. An opportunity to ask questions regarding the treatment plan was provided. All questions were answered. The patient expressed understanding and agreement with the above treatment plan. The patient is aware they should contact our office by phone for worsening of their current condition or the appearance of new urologic symptoms. Compliance is encouraged with any medications and followup testing that is ordered. It is a privilege to participate in the urologic care of your patient. If you have any questions or concerns regarding treatment for the above conditions, or other urologic issues, please do not hesitate to contact me. The office telephone contact is [phone]. This note is constructed using voice recognition software. While every effort has been made to ensure accuracy manager gyn errors may have been included. Yours sincerely, Dr Martin Dunn MD, [facility] - Urology Providers of Expert, Compassionate Care for the Genitourinary System Coding Level of Care Code Est Pt Level 4 (77044) Diagnoses Prostate cancer metastatic to bone C61; C79.51 Biochemically recurrent castration-sensitive adenocarcinoma of prostate C61; R97.21; Z19.1
== END 2023-02-16 11:31 | disposition home or self-care (01) ==
PROVIDERS: PCP Student in an Organized Health Care Education/Training Program; Visit Provider Urology
DX: C61 Malignant neoplasm of prostate (principal); C79.51 Secondary malignant neoplasm of bone; R97.21 Rising PSA following treatment for malignant neoplasm of prostate; Z19.1 Hormone sensitive malignancy status
CPT/HCPCS: 99214

== ENCOUNTER → 2023-02-16 10:30 | Outpatient (BNVA) | payer OTHER, SELFPAY | PROVIDERS: PCP Student in an Organized Health Care Education/Training Program; Visit Provider Urology | DX: C61 Malignant neoplasm of prostate (principal); C79.51 Secondary malignant neoplasm of bone; R97.21 Rising PSA following treatment for malignant neoplasm of prostate; Z19.1 Hormone sensitive malignancy status | CPT/HCPCS: 96372; 99212; J0897 ==

== ENCOUNTER 2023-03-22 08:55 | Outpatient (AMB) | payer OTHER, SELFPAY ==
--- NOTE | 2023-03-22 09:02 | AM.OFFVISNUR ---
Intake Intake Visit Reasons: Xgeva(1st Dose) Allergies No Known Allergies Allergy (Verified 12/29/22 11:42) Office Meds Xgeva 120 mg/1.7 mL (70 mg/mL) subcutaneous solution Performing Provider: Martin Dunn MD Performing Location[facility] [place] [facility] Administered by: Jeanna Morgan RN on 03/22/23 09:02 Dose Route Admin Location Dispensed Lot Number Expiration Date [facility] Case Picker 120 mg subcut right arm 1.7 mL [id number] 07/11/25 52869-859-11 AMGEN Coding Assessment & Plan Assessment & Plan Orders: Orders AMB Denosumab Injection Practice Supplied Today C61 - Malignant neoplasm of prostate, C79.51 - Secondary malignant neoplasm of bone
== END 2023-03-22 09:29 | disposition home or self-care (01) ==
PROVIDERS: PCP Student in an Organized Health Care Education/Training Program; Visit Provider Urology
DX: C61 Malignant neoplasm of prostate (principal); C79.51 Secondary malignant neoplasm of bone

== ENCOUNTER → 2023-03-22 08:55 | Outpatient (BNVA) | payer OTHER, SELFPAY | PROVIDERS: PCP Student in an Organized Health Care Education/Training Program; Visit Provider Urology | DX: C61 Malignant neoplasm of prostate (principal); C79.51 Secondary malignant neoplasm of bone | CPT/HCPCS: 96372; J0897 ==

== ENCOUNTER 2023-04-25 08:28 | Outpatient (AMB) | payer OTHER, SELFPAY ==
--- NOTE | 2023-04-25 09:00 | AM.OFFVISNUR ---
Intake Intake Visit Reasons: Xgeva(2nd dose) Allergies No Known Allergies Allergy (Verified 12/29/22 11:42) Office Meds Xgeva 120 mg/1.7 mL (70 mg/mL) subcutaneous solution Performing Provider: Martin Dunn MD Performing Location[facility] [place] [facility] Administered by: Everett Brandt LPN on 04/25/23 09:03 Dose Route Admin Location Dispensed Lot Number Expiration Date [facility] Pile Driver Operator Barge Mounted 120 mg subcut right arm 1.7 mL [id number] 07/11/25 19887-439-33 AMGEN Coding Assessment & Plan Assessment & Plan Orders: Orders AMB Denosumab Injection Practice Supplied Today C61 - Malignant neoplasm of prostate, C79.51 - Secondary malignant neoplasm of bone
== END 2023-04-25 09:24 | disposition home or self-care (01) ==
PROVIDERS: PCP Student in an Organized Health Care Education/Training Program; Visit Provider Urology
DX: C61 Malignant neoplasm of prostate (principal); C79.51 Secondary malignant neoplasm of bone

== ENCOUNTER → 2023-04-25 08:28 | Outpatient (BNVA) | payer OTHER, SELFPAY | PROVIDERS: PCP Student in an Organized Health Care Education/Training Program; Visit Provider Urology | DX: C61 Malignant neoplasm of prostate (principal); C79.51 Secondary malignant neoplasm of bone | CPT/HCPCS: 96372; J0897 ==

== ENCOUNTER → 2023-05-10 09:38 | Outpatient (REF) | payer OTHER, SELFPAY ==
--- NOTE | ~2023-05-10 | NM_ITS ---
EXAMINATION: NM BONE SCAN OF THE WHOLE BODY CLINICAL INFORMATION: Malignant neoplasm of prostate. COMPARISON: The previous bone scan dated 03/25/2020 is available for comparison. No recent radiographs are available for comparison. TECHNIQUE: Multiple gamma scintillation camera images of the whole body were performed 3 hours following the intravenous administration of 36 mCi Tc-99m MDP. FINDINGS: In the head, foci of mildly to moderately increased activity are present that are probably in the clivus or mastoid process regions bilaterally. In the thoracic cage and upper extremities, there are diffuse foci of mildly to moderately increased activity present throughout the thoracic cage involving the ribs extensively but also the sternum, the clavicles and probably additional lesions in both scapulae. There are foci of moderately increased activity present in the humeral heads bilaterally and in additional small focus in the proximal shaft of the right humerus. Several small foci of mildly increased activity are present in the proximal and mid left humerus. In the spine, diffuse foci of mildly to moderately increased activity are present throughout the spine, most prominently in the mid and lower thoracic spine. In the pelvis, diffuse abnormalities are present, most intensely in the posterior iliac bones bilaterally but additional small foci are present in the sacrum and the supra-acetabular regions bilaterally as well as the anterior iliac crests and ischia. In the lower extremities, multiple foci of mild to moderately increased activity are present diffusely in the intertrochanteric regions and heads of both femurs. Additional small foci are present in the proximal shaft of the right and the distal shaft of the left femurs. There is minimally increased activity in the left patella, the latter probably degenerative. No other definite bony abnormalities are noted. The urinary bladder and faint visualization of both kidneys are noted. Compared to the previous bone scan dated 03/25/2020, the abnormalities described above are new. NM/NM bone scan whole body IMPRESSION: Widespread metastatic tumor involvement of bone.
== END ==
LOC: HO.NUCMED 09:38
PROVIDERS: PCP Student in an Organized Health Care Education/Training Program; Visit Provider Urology
DX: C61 Malignant neoplasm of prostate (principal); C79.51 Secondary malignant neoplasm of bone
CPT/HCPCS: 78306; A9503

== ENCOUNTER 2023-05-17 13:08 | Outpatient (REF) | payer OTHER, SELFPAY ==
[2023-05-17 17:15] LABS: Prostate Specific Antigen 14.67 ng/mL (<0.05-4.0)
[2023-05-24 01:28] LABS: Testosterone, Total <1 ng/dL (250-1100)
== END 2023-05-17 13:09 | disposition home or self-care (01) ==
LOC: HO.HMGCLDS 13:08
PROVIDERS: Visit Provider Urology
DX: Z12.5 Encounter for screening for malignant neoplasm of prostate (principal); C61 Malignant neoplasm of prostate; C79.51 Secondary malignant neoplasm of bone
CPT/HCPCS: 36415; 84153; 84403

== ENCOUNTER 2023-05-27 09:42 | Outpatient (REF) | payer OTHER, SELFPAY ==
--- NOTE | ~2023-05-27 | MM_ITS ---
EXAMINATION: BONE DENSITOMETRY CLINICAL INDICATION: Malignant neoplasm of prostate. COMPARISON: This is the patient's baseline examination. TECHNIQUE: Using a [employer] DXA System (software version: 13.1) manufactured by [employer], dual-energy x-ray absorptiometry was performed of the lumbar spine and left hip. The images are of good technical quality. Summary results are attached. FINDINGS: LEFT FEMUR, NECK: BMD 0.521 g/cm2, Z-score -3.6, T-score -4.2, osteoporosis. LEFT FEMUR, TOTAL: BMD 0.778 g/cm2, Z-score -2.1, T-score -2.2, osteopenia. AP SPINE L2-L3 (excluding L1 and L4): The data of L1-L4 has been changed to exclude the L1 and L4 vertebral bodies, because at these levels may cause overestimation of lumbar spine density. BMD 1.554 g/cm2, Z-score 2.4, T-score 2.6, normal. IDENTIFIED RISK FACTORS: Glucocorticoids, low calcium intake. HISTORY OF FRACTURE: None listed. MEDICATIONS: Calcium supplements or multivitamin, vitamin D. MM/XR DEXA axial skeleton IMPRESSION: 1. DIAGNOSIS: Osteoporosis based on the lowest T-score value of -4.2 in the femoral neck applying World Health Organization criteria. 2. 10-YEAR FRACTURE RISK PREDICTION, FRAX: According to the guidelines, FRAX calculation should only be performed on patients in the osteopenia bone density category. Therefore, FRAX was not performed on this patient. 3. Treatment Recommendations: NOF guidelines recommend consideration for treatment in postmenopausal women and men age 50 and older presenting with the following: -A hip or vertebral (clinical or morphometric) fracture. -T-score less than or equal to -2.5 at the femoral neck or spine after appropriate evaluation to exclude secondary causes. -Low bone mass at the hip or spine and a 10-year fracture probability by FRAX of greater than or equal to 3% for hip fracture or greater than or equal to 20% for major osteoporotic fracture based on the [place] adapted WHO algorithm. 4. Other Recommendations: All treatment decisions require clinical judgment and consideration of individual patient factors, including patient preferences, comorbidities, previous drug use, risk factors not captured in the FRAX model (e.g. frailty, falls, vitamin D deficiency, increased bone turnover, interval significant decline in bone density) and possible under or overestimation of fracture risk by FRAX. Additional medical evaluation for secondary cause of low bone mineral density may be appropriate. FUTURE SCAN RECOMMENDATION: People with diagnosed cases of osteoporosis or at high risk for fracture should have regular bone mineral density tests. For patients eligible for Medicare, routine testing is allowed once every 2 years. The testing frequency can be increased to one year for patients who have rapidly progressing disease, those who are receiving or discontinuing medical therapy to restore bone mass, or have additional risk factors.
== END 2023-05-27 09:43 | disposition home or self-care (01) ==
LOC: HO.MAMMO 09:42
PROVIDERS: PCP Student in an Organized Health Care Education/Training Program; Visit Provider Urology
DX: Z13.820 Encounter for screening for osteoporosis (principal); C61 Malignant neoplasm of prostate; C79.51 Secondary malignant neoplasm of bone; M81.8 Other osteoporosis without current pathological fracture
CPT/HCPCS: 77080

== ENCOUNTER 2023-05-31 09:43 | Outpatient (AMB) | payer OTHER, SELFPAY ==
--- NOTE | 2023-05-31 10:18 | MHC.OFFVIS ---
Intake Intake Visit Reasons: 3M Xgeva 3rd/GnRH/bone scan/labs(Pending labs) Intake Note: Patient is Present for Follow Up LABS Eligard/Xgeva injection Urology Medication: Xgeva, Eligard, Abiraterone, Tadalafil, Tamsulosin Antibiotic Allergies: None Blood Thinners: Apixaban Allergies No Known Allergies Allergy (Verified 12/29/22 11:42) Medication List - Last Reconciled 05/31/23 by Martin Dunn MD abiraterone 500 mg PO DAILY albuterol sulfate 90 mcg/actuation 1 puff inhalation Q6H PRN amiodarone 200 mg PO DAILY amlodipine 5 mg PO DAILY@1700 apixaban 5 mg PO BID bicalutamide 50 mg PO DAILY 30 days calcium carbonate (Calcium 500) 500 mg PO BID 90 days cholecalciferol (vitamin D3) 400 units PO DAILY 90 days fluticasone propion-salmeterol 250-50 mcg/dose (Wixela Inhub) 1 inh inhalation BID furosemide 20 mg PO gabapentin 300 mg PO TID PRN leuprolide acetate (6 month) (Eligard) 45 mg subcut [id number] losartan 25 mg PO DAILY metoprolol succinate ER 25 mg PO DAILY oxycodone 5 mg PO Q6H 30 days prednisone 5 mg PO BID 7 days rosuvastatin 20 mg PO BEDTIME tadalafil 20 mg PO DAILY 30 days tamsulosin 0.8 mg (2 x 0.4 mg) PO DAILY@1700 90 days umeclidinium 62.5 mcg/actuation 1 inh inhalation DAILY HPI HPI Comments History of Present Illness Details Tolu is a very pleasant male. He is a patient of Dr Damon. 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 Currently 11 Diagnosis metastatic hormone non-sensitive prostate cancer. Since initiation of abiraterone back pain has significantly resolved Initiate Xgeva monthly Labs and imaging in 3 months with GnRH Continue abiraterone 12/04 Biochemical recurrent prostate cancer - PET-CT metastatic disease in the spine - add abiraterone with prednisone Last GnRH 12/04 - evidence of metastatic disease Prostate cancer: High-grade prostate cancer July 2018 initial therapy XRT with hormones - last GnRH 04/04 - 10/01 - rising PSA - therapy GnRH + oral anti androgen - 02/02 Hold GnRH and antiandrogen PSA 04/03 PSA 30, 07/02 47, 10/01 <0.05, 01/01 <0.1, 04/04 <0.05 T <1, 07/03 <0.1 T <1. 10/02 <0.1, 01/02 <0.1 T <1, 04/05 0.2 T 79, 07/04 P 2.76 T 111, 11/03 190 T111, 02/03 11 Prostate cancer was diagnosed July 2018 Dr Dunn. Diagnosis was reached by needle biopsy, for elevated PSA, PSA at diagnosis 49,size at TRUS 35cc. The [place] grade is July 2018 5/ cores positive 2/ , 4+4 = 8 CHIRINOS, LMM 3/ , 4+3 = 7, LMB, LLB, LML 5-50% of cores. TNM Classification of Malignant Tumours (TNM) T1c, Group 4. The D'Vicky (NCCN) risk category is High Risk (PSA > 20, Gl 8+, T3), Group 4. Initial therapy included XRT with 18 months GnRH Imaging 09/05/18 GnRH 6M 12/[address] Wade at [facility] Recent labs included 07/01 PSA 0.05 08/31 PSA 0.3, T 6 - no GnRH 09/30 PSA 1.3 T 8 - 03/02 PSA 16 T 94 Recent imaging included 08/30 , a bone scan nonspecific changes consistent with arthritis 08/30 , a CT (computed tomography) scan, with no evidence of metastasis. - 04/03 bone scan negative - arthritis on right shoulder - 04/03 CT scan no evidence of metastatic disease Therapy for rising PSA after radiation 07/02 07/02 GnRH and Xtandi 01/01 GnRH and Zytiga 04/04 GnRH Therapeutic plan continue hormonal control and surveillance [facility] Medical History Current use of keno terminal operator anticoagulation Atrial fibrillation History of radiation therapy History of prostate cancer Hypercholesterolemia Pre-diabetes COPD (chronic obstructive pulmonary disease) Bladder outlet obstruction Weak urinary stream Nocturia Surgical History H/O tooth extraction History of prostate biopsy Family History Father Brain cancer Mother Pancreatic cancer Brother Drug overdose Brother Drug overdose Brother Pancreatic cancer Brother No problems noted. Brother No problems noted. Sister No problems noted. Social History Household Members: None Housing: Apartment Housing Other:: Lives in a 1 room efficiency Are you a primary health care technician to a significant other at home: No Do you presently have visiting nurse or other home services: No Alcohol intake: former Year quit: 2019 Patient Tobacco Use Status: Former Tobacco user Quit Date: 2.5 years ago Years Smoked: 38 service: No Current occupational status: retired Review of Systems Const Denies chills and Denies fever(s) Card Reports no additional complaints and Denies syncope Resp Denies cough GI Denies abdominal pain and Denies heartburn Reports as per HPI and Denies change in libido Neuro Denies syncope Psych Denies change in libido Endo Denies change in libido Physical Exam Const General: cooperative, healthy appearing, comfortable and no acute distress Orientation/consciousness: patient oriented x3 HEENT Face and sinus: Yes normal facial exam Mouth: moist mucous membranes Neck Neck: Yes normal visual inspection, Yes full ROM and Yes trachea midline Chest Chest palpation & inspection: normal inspection of the chest Resp Effort & Inspection: normal respiratory effort, able to speak in complete sentences and no respiratory distress GI Inspection: Yes normal to inspection Back/Spine/Pelvis Cervical Spine: normal cervical lordosis Thoracic/Lumbar Spine: thoracic and lumbar spine normal to inspection Skin General skin exam: no rashes or lesions noted Neuro General: patient oriented x3, gait normal, tone normal and moves all extremities Extrem General: Yes normal to inspection and Yes capillary refill normal Office Meds Xgeva 120 mg/1.7 mL (70 mg/mL) subcutaneous solution Performing Provider: Martin Dunn MD Performing Location: [facility] Administered by: Jeanna Morgan RN on 05/31/23 10:53 Dose Route Admin Location Dispensed Lot Number Expiration Date [facility] Crystal Machining Coordinator 120 mg subcut left arm 1.7 mL [id number] 09/10/25 80049-719-32 [employer] Eligard (6 month) 45 mg (6 month) subcutaneous syringe Performing Provider: Martin Dunn MD Performing Location: [facility] Administered by: Jeanna Morgan RN on 05/31/23 10:53 Dose Route Admin Location Dispensed Lot Number Expiration Date [facility] Crystal Machining Coordinator 45 mg subcut right arm 45 mg [id number] 04/14/24 03562-067-62 [employer] 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: Code(s): C61 - Malignant neoplasm of prostate; R97.21 - Rising PSA following treatment for malignant neoplasm of prostate; Z19.2 - Hormone resistant malignancy status (2) Prostate cancer metastatic to bone: Code(s): C61 - Malignant neoplasm of prostate; C79.51 - Secondary malignant neoplasm of bone (3) Osteoporosis due to androgen therapy: Code(s): M81.8 - Other osteoporosis without current pathological fracture; T38.7X5A - Adverse effect of androgens and anabolic congeners, initial encounter Plan Three-month follow-up imaging with lab work Orders: Orders AMB Denosumab Injection Practice Supplied 05/31/23 C61 - Malignant neoplasm of prostate, C79.51 - Secondary malignant neoplasm of bone Prostate Specific Antigen 3 Months C61 - Malignant neoplasm of prostate AMB Leuprolide Injection - Practice Supplied 05/31/23 C61 - Malignant neoplasm of prostate Testosterone, Total 3 Months C61 - Malignant neoplasm of prostate Blood Urea Nitrogen 3 Months C61 - Malignant neoplasm of prostate Creatinine 3 Months C61 - Malignant neoplasm of prostate PET CT fusion skull to thigh 3 Months C61 - Malignant neoplasm of prostate Medications: Changed From oxycodone Partial Fill upon patient request. 5 mg PO Q6H 30 days 120 caps 0RF To oxycodone Partial Fill upon patient request. 5 mg PO BID 60 caps 0RF 30 days Patient Instructions: Imaging studies, laboratory and physical exam results were discussed and reviewed in detail. No major barriers to patient understanding were identified. An opportunity to ask questions regarding the treatment plan was provided. All questions were answered. The patient expressed understanding and agreement with the above treatment plan. The patient is aware they should contact our office by phone for worsening of their current condition or the appearance of new urologic symptoms. Compliance is encouraged with any medications and followup testing that is ordered. It is a privilege to participate in the urologic care of your patient. If you have any questions or concerns regarding treatment for the above conditions, or other urologic issues, please do not hesitate to contact me. The office telephone contact is [phone]. This note is constructed using voice recognition software. While every effort has been made to ensure accuracy folding rules printing machine operator errors may have been included. 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
== END 2023-05-31 11:05 | disposition home or self-care (01) ==
PROVIDERS: PCP Student in an Organized Health Care Education/Training Program; Visit Provider Urology
DX: C61 Malignant neoplasm of prostate (principal); R97.21 Rising PSA following treatment for malignant neoplasm of prostate; Z19.2 Hormone resistant malignancy status; C79.51 Secondary malignant neoplasm of bone; M81.8 Other osteoporosis without current pathological fracture; T38.7X5A Adverse effect of androgens and anabolic congeners, initial encounter
CPT/HCPCS: 99213

== ENCOUNTER → 2023-05-31 09:43 | Outpatient (BNVA) | payer OTHER, SELFPAY | PROVIDERS: PCP Student in an Organized Health Care Education/Training Program; Visit Provider Urology | DX: C61 Malignant neoplasm of prostate (principal); C79.51 Secondary malignant neoplasm of bone; M81.8 Other osteoporosis without current pathological fracture; T38.7X5A Adverse effect of androgens and anabolic congeners, initial encounter; R97.21 Rising PSA following treatment for malignant neoplasm of prostate; Z19.2 Hormone resistant malignancy status | CPT/HCPCS: 96372; 96402; 99212; J0897; J9217 ==

== ENCOUNTER 2023-06-30 08:47 | Outpatient (AMB) | payer OTHER, SELFPAY ==
--- NOTE | 2023-06-30 08:58 | AM.OFFVISNUR ---
Intake Intake Visit Reasons: xgeva(4th dose) Allergies No Known Allergies Allergy (Verified 12/29/22 11:42) Office Meds Xgeva 120 mg/1.7 mL (70 mg/mL) subcutaneous solution Performing Provider: Martin Dunn MD [place] [facility] Administered by: Everett Brandt LPN on 06/30/23 08:58 Dose Route Admin Location Dispensed Lot Number Expiration Date [facility] Stock Controller 120 mg subcut left arm 1.7 mL [id number] 07/11/25 59152-732-49 [employer] Coding Assessment & Plan Assessment & Plan Orders: Orders AMB Denosumab Injection Practice Supplied Today C61 - Malignant neoplasm of prostate, C79.51 - Secondary malignant neoplasm of bone, M81.8 - Other osteoporosis without current pathological fracture, T38.7X5A - Adverse effect of androgens and anabolic congeners, initial encounter
== END 2023-06-30 09:27 | disposition home or self-care (01) ==
PROVIDERS: PCP Student in an Organized Health Care Education/Training Program; Visit Provider Urology
DX: C61 Malignant neoplasm of prostate (principal); C79.51 Secondary malignant neoplasm of bone; M81.8 Other osteoporosis without current pathological fracture; T38.7X5A Adverse effect of androgens and anabolic congeners, initial encounter

== ENCOUNTER → 2023-06-30 08:47 | Outpatient (BNVA) | payer OTHER, SELFPAY | PROVIDERS: PCP Student in an Organized Health Care Education/Training Program; Visit Provider Urology | DX: C61 Malignant neoplasm of prostate (principal); C79.51 Secondary malignant neoplasm of bone; M81.8 Other osteoporosis without current pathological fracture; T38.7X5A Adverse effect of androgens and anabolic congeners, initial encounter | CPT/HCPCS: 96372; J0897 ==

== ENCOUNTER 2023-08-02 08:40 | Outpatient (AMB) | payer OTHER, SELFPAY ==
--- NOTE | 2023-08-02 09:11 | MHC.OFFVIS ---
Intake Visit Reasons: Xgeva (5th dose)/Follow Up Intake Note: Patient is present for Follow Up to concerns Allergies No Known Allergies Allergy (Verified 12/29/22 11:42) HPI Comments Details: Tolu is a very pleasant male. He is a patient of Dr Damon. 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 Remains with widespread metastatic tumor. Baseline receiving GnRH Has adapted well to abiraterone 1000 mg - minimal fatigue Next month Xgeva + GnRH 06/04 PSA 14, T <1 DEXA with osteroporosis Bone Scan metastatic prostate cancer - Widespread metastatic tumor involvement of bone Continues with abiraterone 500 mg, prednisone 5 mg b.i.d., Xgeva monthly Has referral for Medical Oncology at '[facility] [place] - needs to f/u Previously has not tolerated full-dose antiandrogens well - had fatigue 02/03 significant reduction in PSA. Currently 11 Diagnosis metastatic hormone non-sensitive prostate cancer. Since initiation of abiraterone back pain has significantly resolved Initiate Xgeva monthly Labs and imaging in 3 months with GnRH Continue abiraterone 12/04 Biochemical recurrent prostate cancer - GnRH - PET-CT metastatic disease in the spine - add abiraterone with prednisone Last GnRH 12/04 - evidence of metastatic disease Prostate cancer: High-grade prostate cancer July 2018 initial therapy XRT with hormones - 10/01 - rising PSA - therapy GnRH + oral anti androgen PSA 04/03 PSA 30, 07/02 47, 10/01 <0.05, 01/01 <0.1, 04/04 <0.05 T <1, 07/03 <0.1 T <1. 10/02 <0.1, 01/02 <0.1 T <1, 04/05 0.2 T 79, 07/04 P 2.76 T 111, 11/03 190 T111, 02/03 11 Prostate cancer was diagnosed July 2018 Dr Dunn. Diagnosis was reached by needle biopsy, for elevated PSA, PSA at diagnosis 49,size at TRUS 35cc. The [place] grade is July 201807/23 cores positive 2/12 , 4+4 = 8 CHIRINOS, LMM 3/12 , 4+3 = 7, LMB, LLB, LML 5-50% of cores. TNM Classification of Malignant Tumours (TNM) T1c, Group 4. The D'Vicky (NCCN) risk category is High Risk (PSA > 20, Gl 8+, T3), Group 4. Initial therapy included XRT with 18 months GnRH Imaging 09/05/18 GnRH 6M 12/[address] Wade at [facility] Recent labs included 07/01 PSA 0.05 08/31 PSA 0.3, T 6 - no GnRH 09/30 PSA 1.3 T 8 - 03/02 PSA 16 T 94 Recent imaging included 08/30 , a bone scan nonspecific changes consistent with arthritis 08/30 , a CT (computed tomography) scan, with no evidence of metastasis. - 04/03 bone scan negative - arthritis on right shoulder - 04/03 CT scan no evidence of metastatic disease Therapy for rising PSA after radiation 07/02 07/02 GnRH and Xtandi 01/01 GnRH and Zytiga 04/04 GnRH Therapeutic plan continue hormonal control and surveillance [facility] Medical History Current use of retirement anticoagulation Atrial fibrillation History of radiation therapy History of prostate cancer Hypercholesterolemia Pre-diabetes COPD (chronic obstructive pulmonary disease) Bladder outlet obstruction Weak urinary stream Nocturia Surgical History H/O tooth extraction History of prostate biopsy Family History Father Brain cancer Mother Pancreatic cancer Brother Drug overdose Brother Drug overdose Brother Pancreatic cancer Brother No problems noted. Brother No problems noted. Sister No problems noted. Social History Household Members: None Housing: Apartment Housing Other:: Lives in a 1 room efficiency Are you a primary wound care physician to a significant other at home: No Do you presently have visiting nurse or other home services: No Alcohol intake: former Year quit: 2019 Patient Tobacco Use Status: Former Tobacco user Quit Date: 2.5 years ago Years Smoked: 38 service: No Current occupational status: retired Review of Systems Const Denies chills and Denies fever(s) Card Reports no additional complaints and Denies syncope Resp Denies cough GI Denies abdominal pain and Denies heartburn Reports as per HPI and Denies change in libido Neuro Denies syncope Psych Denies change in libido Endo Denies change in libido Physical Exam Const General: cooperative, healthy appearing, comfortable and no acute distress Orientation/consciousness: patient oriented x3 HEENT Face and sinus: Yes normal facial exam Mouth: moist mucous membranes Neck Neck: Yes normal visual inspection, Yes full ROM and Yes trachea midline Chest Chest palpation & inspection: normal inspection of the chest Resp Effort & Inspection: normal respiratory effort, able to speak in complete sentences and no respiratory distress GI Inspection: Yes normal to inspection Back/Spine/Pelvis Cervical Spine: normal cervical lordosis Thoracic/Lumbar Spine: thoracic and lumbar spine normal to inspection Skin General skin exam: no rashes or lesions noted Neuro General: patient oriented x3, gait normal, tone normal and moves all extremities Extrem General: Yes normal to inspection and Yes capillary refill normal Office Meds Xgeva 120 mg/1.7 mL (70 mg/mL) subcutaneous solution Performing Provider: Martin Dunn MD [place] [facility] [place] [facility] Administered by: Jeanna Morgan RN on 08/02/23 09:20 Dose Route Admin Location Dispensed Lot Number Expiration Date [facility] Marketing Finance Specialist 120 mg subcut left arm 1.7 mL [id number] 09/10/25 65260-593-71 [employer] 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: Code(s): C61 - Malignant neoplasm of prostate; R97.21 - Rising PSA following treatment for malignant neoplasm of prostate; Z19.2 - Hormone resistant malignancy status Category: Medical (2) Osteoporosis due to androgen therapy: Code(s): M81.8 - Other osteoporosis without current pathological fracture; T38.7X5A - Adverse effect of androgens and anabolic congeners, initial encounter Category: Medical (3) Prostate cancer metastatic to bone: Code(s): C61 - Malignant neoplasm of prostate; C79.51 - Secondary malignant neoplasm of bone Category: Medical Plan [facility] next visit Pending PET-CT Orders: Orders AMB Denosumab Injection Practice Supplied Today C61 - Malignant neoplasm of prostate, C79.51 - Secondary malignant neoplasm of bone, M81.8 - Other osteoporosis without current pathological fracture, T38.7X5A - Adverse effect of androgens and anabolic congeners, initial encounter Patient Instructions: Imaging studies, laboratory and physical exam results were discussed and reviewed in detail. No major barriers to patient understanding were identified. An opportunity to ask questions regarding the treatment plan was provided. All questions were answered. The patient expressed understanding and agreement with the above treatment plan. The patient is aware they should contact our office by phone for worsening of their current condition or the appearance of new urologic symptoms. Compliance is encouraged with any medications and followup testing that is ordered. It is a privilege to participate in the urologic care of your patient. If you have any questions or concerns regarding treatment for the above conditions, or other urologic issues, please do not hesitate to contact me. The office telephone contact is [phone]. This note is constructed using voice recognition software. While every effort has been made to ensure accuracy classification counselor errors may have been included. 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
== END 2023-08-02 09:37 | disposition home or self-care (01) ==
PROVIDERS: PCP Student in an Organized Health Care Education/Training Program; Visit Provider Urology
DX: C61 Malignant neoplasm of prostate (principal); R97.21 Rising PSA following treatment for malignant neoplasm of prostate; C79.51 Secondary malignant neoplasm of bone; Z19.2 Hormone resistant malignancy status; M81.8 Other osteoporosis without current pathological fracture; T38.7X5A Adverse effect of androgens and anabolic congeners, initial encounter
CPT/HCPCS: 99214

== ENCOUNTER → 2023-08-02 08:40 | Outpatient (BNVA) | payer OTHER, SELFPAY | PROVIDERS: PCP Student in an Organized Health Care Education/Training Program; Visit Provider Urology | DX: C61 Malignant neoplasm of prostate (principal); C79.51 Secondary malignant neoplasm of bone; M81.8 Other osteoporosis without current pathological fracture; T38.7X5A Adverse effect of androgens and anabolic congeners, initial encounter | CPT/HCPCS: 96372; 99212; J0897 ==

== ENCOUNTER 2023-08-22 14:19 | Outpatient (REF) | payer OTHER, SELFPAY ==
[2023-08-22 16:20] LABS: Blood Urea Nitrogen 18 mg/dL (9-16); Estimated Glomerular Filt Rate > 60
[2023-08-22 16:33] LABS: Prostate Specific Antigen 11.93 ng/mL (<0.05-4.0)
[2023-08-28 14:15] LABS: Testosterone, Total <1 ng/dL (250-1100)
== END 2023-08-22 14:20 | disposition home or self-care (01) ==
LOC: HO.HMGCLDS 14:19
PROVIDERS: PCP Student in an Organized Health Care Education/Training Program; Visit Provider Urology
DX: C61 Malignant neoplasm of prostate (principal); Z12.5 Encounter for screening for malignant neoplasm of prostate
CPT/HCPCS: 36415; 82565; 84153; 84403; 84520

== ENCOUNTER 2023-09-09 08:41 | Outpatient (AMB) | payer OTHER, SELFPAY ==
--- NOTE | 2023-09-09 09:12 | A.OFFVIS_ITS ---
Intake Visit Reasons: 3m/Pet CT/labs(08/[address] labs set) Intake Note: Patient is present for 3 month f/u pet CT and labs Urology Medication:prednisone,tamsulosin,oxycodone,tadalafil,abiraterone,calcium,choleca lciferol Antibiotic Allergy:none Blood Thinner:none Motor Vehicles Supervisor Required: No Allergies No Known Allergies Allergy (Verified 09/09/23 09:16) Medication List - Last Reconciled 09/09/23 by Martin Dunn MD abiraterone 500 mg PO DAILY albuterol sulfate 90 mcg/actuation 1 puff inhalation Q6H PRN amiodarone 200 mg PO DAILY amlodipine 5 mg PO DAILY@1700 apixaban 5 mg PO BID calcium carbonate (Calcium 500) 500 mg PO BID 90 days cholecalciferol (vitamin D3) 400 units PO DAILY 90 days fluticasone propion-salmeterol 250-50 mcg/dose (Wixela Inhub) 1 inh inhalation BID furosemide 20 mg PO gabapentin 300 mg PO TID PRN leuprolide acetate (6 month) (Eligard) 45 mg subcut [id number] losartan 25 mg PO DAILY metoprolol succinate ER 25 mg PO DAILY oxycodone 5 mg PO BID 30 days prednisone 5 mg PO BID 7 days rosuvastatin 20 mg PO BEDTIME tadalafil 20 mg PO DAILY 30 days tamsulosin 0.8 mg (2 x 0.4 mg) PO DAILY@1700 90 days umeclidinium 62.5 mcg/actuation 1 inh inhalation DAILY HPI Comments Details: Tolu is a very pleasant male. He is a patient of Dr Damon. 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 Remains with widespread metastatic tumor. Baseline receiving GnRH Has adapted well to abiraterone 1000 mg - minimal fatigue 06/04 PSA 14, T <1 DEXA with osteroporosis Bone Scan metastatic prostate cancer - Widespread metastatic tumor involvement of bone Continues with abiraterone 500 mg, prednisone 5 mg b.i.d., Xgeva monthly Has referral for Medical Oncology at [facility] - needs to f/u Previously has not tolerated full-dose antiandrogens well - had fatigue GnRH 02/03 significant reduction in PSA. Currently 11 Diagnosis metastatic hormone non-sensitive prostate cancer. Since initiation of abiraterone back pain has significantly resolved Initiate Xgeva monthly Labs and imaging in 3 months with GnRH Continue abiraterone 12/04 Biochemical recurrent prostate cancer - GnRH - PET-CT metastatic disease in the spine - add abiraterone with prednisone Last GnRH 12/04 - evidence of metastatic disease Prostate cancer: High-grade prostate cancer July 2018 initial therapy XRT with hormones - 10/01 - rising PSA - therapy GnRH + oral anti androgen PSA 04/03 PSA 30, 07/02 47, 10/01 <0.05, 01/01 <0.1, 04/04 <0.05 T <1, 07/03 <0.1 T <1. 10/02 <0.1, 01/02 <0.1 T <1, 04/05 0.2 T 79, 07/04 P 2.76 T 111, 11/03 190 T111, 02/03 11 Prostate cancer was diagnosed July 2018 Dr Dunn. Diagnosis was reached by needle biopsy, for elevated PSA, PSA at diagnosis 49,size at TRUS 35cc. The Clau grade is July 2018 5/ cores positive 2/12 , 4+4 = 8 CHIRINOS, LMM 3/12 , 4+3 = 7, LMB, LLB, LML 5-50% of cores. TNM Classification of Malignant Tumours (TNM) T1c, Group 4. The D'Vicky (NCCN) risk category is High Risk (PSA > 20, Gl 8+, T3), Group 4. Initial therapy included XRT with 18 months GnRH Imaging 09/05/18 GnRH 6M 12/[address] Wade at [facility] Recent labs included 07/01 PSA 0.05 08/31 PSA 0.3, T 6 - no GnRH 09/30 PSA 1.3 T 8 - 03/02 PSA 16 T 94 Recent imaging included 08/30 , a bone scan nonspecific changes consistent with arthritis 08/30 , a CT (computed tomography) scan, with no evidence of metastasis. - 04/03 bone scan negative - arthritis on right shoulder - 04/03 CT scan no evidence of metastatic disease Therapy for rising PSA after radiation 07/02 07/02 GnRH and Xtandi 01/01 GnRH and Zytiga 04/04 GnRH Therapeutic plan continue hormonal control and surveillance [facility] Medical History Current use of intermodal owner operator truck driver anticoagulation Atrial fibrillation History of radiation therapy History of prostate cancer Hypercholesterolemia Pre-diabetes COPD (chronic obstructive pulmonary disease) Bladder outlet obstruction Weak urinary stream Nocturia Surgical History H/O tooth extraction History of prostate biopsy Family History Father Brain cancer Mother Pancreatic cancer Brother Drug overdose Brother Drug overdose Brother Pancreatic cancer Brother No problems noted. Brother No problems noted. Sister No problems noted. Social History Household Members: None Housing: Apartment Housing Other:: Lives in a 1 room efficiency Are you a primary assistant child care teacher to a significant other at home: No Do you presently have visiting nurse or other home services: No Alcohol intake: former Year quit: 2019 Patient Tobacco Use Status: Former Tobacco user Years Smoked: 38 service: No Current occupational status: retired Review of Systems Const Denies chills and Denies fever(s) Card Reports no additional complaints and Denies syncope Resp Denies cough GI Denies abdominal pain and Denies heartburn Reports as per HPI and Denies change in libido Neuro Denies syncope Psych Denies change in libido Endo Denies change in libido Physical Exam Const General: cooperative, healthy appearing, comfortable and no acute distress Orientation/consciousness: patient oriented x3 HEENT Face and sinus: Yes normal facial exam Mouth: moist mucous membranes Neck Neck: Yes normal visual inspection, Yes full ROM and Yes trachea midline Chest Chest palpation & inspection: normal inspection of the chest Resp Effort & Inspection: normal respiratory effort, able to speak in complete sentences and no respiratory distress GI Inspection: Yes normal to inspection Back/Spine/Pelvis Cervical Spine: normal cervical lordosis Thoracic/Lumbar Spine: thoracic and lumbar spine normal to inspection Skin General skin exam: no rashes or lesions noted Neuro General: patient oriented x3, gait normal, tone normal and moves all extremities Extrem General: Yes normal to inspection and Yes capillary refill normal Assessment & Plan Assessment & Plan (1) Prostate cancer metastatic to bone: Code(s): C61 - Malignant neoplasm of prostate; C79.51 - Secondary malignant neoplasm of bone Category: Medical (2) Osteoporosis due to androgen therapy: Code(s): M81.8 - Other osteoporosis without current pathological fracture; T38.7X5A - Adverse effect of androgens and anabolic congeners, initial encounter Category: Medical (3) 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: Code(s): C61 - Malignant neoplasm of prostate; R97.21 - Rising PSA following treatment for malignant neoplasm of prostate; Z19.2 - Hormone resistant malignancy status Category: Medical Plan Three-month follow-up labs Orders: Orders Prostate Specific Antigen 3 Months C61 - Malignant neoplasm of prostate, R97.21 - Rising PSA following treatment for malignant neoplasm of prostate, Z19.2 - Hormone resistant malignancy status Testosterone, Total 3 Months C61 - Malignant neoplasm of prostate, R97.21 - Rising PSA following treatment for malignant neoplasm of prostate, Z19.2 - Hormone resistant malignancy status Patient Instructions: Imaging studies, laboratory and physical exam results were discussed and reviewed in detail. No major barriers to patient understanding were identified. An opportunity to ask questions regarding the treatment plan was provided. All questions were answered. The patient expressed understanding and agreement with the above treatment plan. The patient is aware they should contact our office by phone for worsening of their current condition or the appearance of new urologic symptoms. Compliance is encouraged with any medications and followup testing that is ordered. It is a privilege to participate in the urologic care of your patient. If you have any questions or concerns regarding treatment for the above conditions, or other urologic issues, please do not hesitate to contact me. The office telephone contact is [phone]. This note is constructed using voice recognition software. While every effort has been made to ensure accuracy power plant operations manager errors may have been included. 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
--- NOTE | 2023-09-09 09:49 | MHC.OFFVIS ---
Intake Visit Reasons: 3m/Pet CT/labs(08/[address] labs set) Allergies No Known Allergies Allergy (Verified 09/09/23 09:16) Medication List - Last Reconciled 09/09/23 by Martin Dunn MD abiraterone 500 mg PO DAILY albuterol sulfate 90 mcg/actuation 1 puff inhalation Q6H PRN amiodarone 200 mg PO DAILY amlodipine 5 mg PO DAILY@1700 apixaban 5 mg PO BID calcium carbonate (Calcium 500) 500 mg PO BID 90 days cholecalciferol (vitamin D3) 400 units PO DAILY 90 days fluticasone propion-salmeterol 250-50 mcg/dose (Wixela Inhub) 1 inh inhalation BID furosemide 20 mg PO gabapentin 300 mg PO TID PRN leuprolide acetate (6 month) (Eligard) 45 mg subcut [id number] losartan 25 mg PO DAILY metoprolol succinate ER 25 mg PO DAILY oxycodone 5 mg PO BID 30 days prednisone 5 mg PO BID 7 days rosuvastatin 20 mg PO BEDTIME tadalafil 20 mg PO DAILY 30 days tamsulosin 0.8 mg (2 x 0.4 mg) PO DAILY@1700 90 days umeclidinium 62.5 mcg/actuation 1 inh inhalation DAILY HPI Comments Details: Tolu is a very pleasant male. He is a patient of Dr Damon. 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 Remains with widespread metastatic tumor. Baseline receiving GnRH Has adapted well to abiraterone 1000 mg - minimal fatigue 06/04 PSA 14, T <1 DEXA with osteroporosis Bone Scan metastatic prostate cancer - Widespread metastatic tumor involvement of bone Continues with abiraterone 500 mg, prednisone 5 mg b.i.d., Xgeva monthly [facility] - needs to f/u Previously has not tolerated full-dose antiandrogens well - had fatigue GnRH 02/03 significant reduction in PSA. Currently 11 Diagnosis metastatic hormone non-sensitive prostate cancer. Since initiation of abiraterone back pain has significantly resolved Initiate Xgeva monthly Labs and imaging in 3 months with GnRH Continue abiraterone 12/04 Biochemical recurrent prostate cancer - GnRH - PET-CT metastatic disease in the spine - add abiraterone with prednisone Last GnRH 12/04 - evidence of metastatic disease Prostate cancer: High-grade prostate cancer July 2018 initial therapy XRT with hormones - 10/01 - rising PSA - therapy GnRH + oral anti androgen PSA 04/03 PSA 30, 07/02 47, 10/01 <0.05, 01/01 <0.1, 04/04 <0.05 T <1, 07/03 <0.1 T <1. 10/02 <0.1, 01/02 <0.1 T <1, 04/05 0.2 T 79, 07/04 P 2.76 T 111, 11/03 190 T111, 02/03 11 Prostate cancer was diagnosed July 2018 Dr Dunn. Diagnosis was reached by needle biopsy, for elevated PSA, PSA at diagnosis 49,size at TRUS 35cc. The Clau grade is July 201807/[id number] cores positive 2/ , 4+4 = 8 CHIRINOS, LMM 3/ , 4+3 = 7, LMB, LLB, LML 5-50% of cores. TNM Classification of Malignant Tumours (TNM) T1c, Group 4. The D'Vicky (NCCN) risk category is High Risk (PSA > 20, Gl 8+, T3), Group 4. Initial therapy included XRT with 18 months GnRH Imaging 09/05/18 GnRH 6M 12/[address] Wade at [facility] Recent labs included 07/01 PSA 0.05 08/31 PSA 0.3, T 6 - no GnRH 09/30 PSA 1.3 T 8 - 03/02 PSA 16 T 94 Recent imaging included 08/30 , a bone scan nonspecific changes consistent with arthritis 08/30 , a CT (computed tomography) scan, with no evidence of metastasis. - 04/03 bone scan negative - arthritis on right shoulder - 04/03 CT scan no evidence of metastatic disease Therapy for rising PSA after radiation 07/02 07/02 GnRH and Xtandi 01/01 GnRH and Zytiga 04/04 GnRH Therapeutic plan continue hormonal control and surveillance [facility] Medical History Current use of ad terminal makeup operator anticoagulation Atrial fibrillation History of radiation therapy History of prostate cancer Hypercholesterolemia Pre-diabetes COPD (chronic obstructive pulmonary disease) Bladder outlet obstruction Weak urinary stream Nocturia Surgical History H/O tooth extraction History of prostate biopsy Family History Father Brain cancer Mother Pancreatic cancer Brother Drug overdose Brother Drug overdose Brother Pancreatic cancer Brother No problems noted. Brother No problems noted. Sister No problems noted. Social History Household Members: None Housing: Apartment Housing Other:: Lives in a 1 room efficiency Are you a primary health care marketing manager to a significant other at home: No Do you presently have visiting nurse or other home services: No Alcohol intake: former Year quit: 2019 Patient Tobacco Use Status: Former Tobacco user Years Smoked: 38 service: No Current occupational status: retired Review of Systems Const Denies chills and Denies fever(s) Card Reports no additional complaints and Denies syncope Resp Denies cough GI Denies abdominal pain and Denies heartburn Reports as per HPI and Denies change in libido Neuro Denies syncope Psych Denies change in libido Endo Denies change in libido Physical Exam Const General: cooperative, healthy appearing, comfortable and no acute distress Orientation/consciousness: patient oriented x3 HEENT Face and sinus: Yes normal facial exam Mouth: moist mucous membranes Neck Neck: Yes normal visual inspection, Yes full ROM and Yes trachea midline Chest Chest palpation & inspection: normal inspection of the chest Resp Effort & Inspection: normal respiratory effort, able to speak in complete sentences and no respiratory distress GI Inspection: Yes normal to inspection Back/Spine/Pelvis Cervical Spine: normal cervical lordosis Thoracic/Lumbar Spine: thoracic and lumbar spine normal to inspection Skin General skin exam: no rashes or lesions noted Neuro General: patient oriented x3, gait normal, tone normal and moves all extremities Extrem General: Yes normal to inspection and Yes capillary refill normal Office Meds Xgeva 120 mg/1.7 mL (70 mg/mL) subcutaneous solution Performing Provider: Martin Dunn MD Performing Location: [facility] Administered by: Everett Brandt LPN on 09/09/23 09:54 Dose Route Admin Location Dispensed Lot Number Expiration Date [employer] Officer 120 mg subcut left arm 1.7 mL [id number] 11/11/25 71147-400-84 [facility] Assessment & Plan Assessment & Plan (1) Prostate cancer metastatic to bone: Code(s): C61 - Malignant neoplasm of prostate; C79.51 - Secondary malignant neoplasm of bone Category: Medical (2) Osteoporosis due to androgen therapy: Code(s): M81.8 - Other osteoporosis without current pathological fracture; T38.7X5A - Adverse effect of androgens and anabolic congeners, initial encounter Category: Medical (3) 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: Code(s): C61 - Malignant neoplasm of prostate; R97.21 - Rising PSA following treatment for malignant neoplasm of prostate; Z19.2 - Hormone resistant malignancy status Category: Medical Plan [facility] supplied Orders: Orders AMB Denosumab Injection Practice Supplied 09/09/23 M81.8 - Other osteoporosis without current pathological fracture, T38.7X5A - Adverse effect of androgens and anabolic congeners, initial encounter, C61 - Malignant neoplasm of prostate, R97.21 - Rising PSA following treatment for malignant neoplasm of prostate, Z19.2 - Hormone resistant malignancy status, C79.51 - Secondary malignant neoplasm of bone Prostate Specific Antigen 3 Months C61 - Malignant neoplasm of prostate, R97.21 - Rising PSA following treatment for malignant neoplasm of prostate, Z19.2 - Hormone resistant malignancy status Testosterone, Total 3 Months C61 - Malignant neoplasm of prostate, R97.21 - Rising PSA following treatment for malignant neoplasm of prostate, Z19.2 - Hormone resistant malignancy status Patient Instructions: Imaging studies, laboratory and physical exam results were discussed and reviewed in detail. No major barriers to patient understanding were identified. An opportunity to ask questions regarding the treatment plan was provided. All questions were answered. The patient expressed understanding and agreement with the above treatment plan. The patient is aware they should contact our office by phone for worsening of their current condition or the appearance of new urologic symptoms. Compliance is encouraged with any medications and followup testing that is ordered. It is a privilege to participate in the urologic care of your patient. If you have any questions or concerns regarding treatment for the above conditions, or other urologic issues, please do not hesitate to contact me. The office telephone contact is [phone]. This note is constructed using voice recognition software. While every effort has been made to ensure accuracy vertical contour band saw operator errors may have been included. 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
== END 2023-09-09 09:54 | disposition home or self-care (01) ==
PROVIDERS: PCP Student in an Organized Health Care Education/Training Program; Visit Provider Urology
DX: C61 Malignant neoplasm of prostate (principal); C79.51 Secondary malignant neoplasm of bone; M81.8 Other osteoporosis without current pathological fracture; T38.7X5A Adverse effect of androgens and anabolic congeners, initial encounter; R97.21 Rising PSA following treatment for malignant neoplasm of prostate; Z19.2 Hormone resistant malignancy status
CPT/HCPCS: 99213

== ENCOUNTER → 2023-09-09 08:41 | Outpatient (BNVA) | payer OTHER, SELFPAY | PROVIDERS: PCP Student in an Organized Health Care Education/Training Program; Visit Provider Urology | DX: C61 Malignant neoplasm of prostate (principal); C79.51 Secondary malignant neoplasm of bone; M81.8 Other osteoporosis without current pathological fracture; R97.21 Rising PSA following treatment for malignant neoplasm of prostate; T38.7X5A Adverse effect of androgens and anabolic congeners, initial encounter; X58.XXXA Exposure to other specified factors, initial encounter; Y93.9 Activity, unspecified; Y92.9 Unspecified place or not applicable; Y99.9 Unspecified external cause status; Z19.2 Hormone resistant malignancy status | CPT/HCPCS: 96372; 99212; J0897 ==

== ENCOUNTER 2023-10-10 08:43 | Outpatient (AMB) | payer OTHER, SELFPAY ==
--- NOTE | 2023-10-10 09:22 | AM.OFFVISNUR ---
Intake Visit Reasons: Xgeva Injection(1st) Allergies No Known Allergies Allergy (Verified 09/09/23 09:16) Office Meds Xgeva 120 mg/1.7 mL (70 mg/mL) subcutaneous solution Performing Provider: Martin Dunn MD Performing Location[place] [facility] [place] [facility] Administered by: Everett Brandt LPN on 10/10/23 09:22 Dose Route Admin Location Dispensed Lot Number Expiration Date [facility] Mixer Pigment 120 mg subcut left arm 1.7 mL [id number] 11/11/25 91778-499-31 [facility] Assessment & Plan Assessment & Plan Orders: Orders AMB Denosumab Injection Practice Supplied Today C61 - Malignant neoplasm of prostate, C79.51 - Secondary malignant neoplasm of bone, M81.8 - Other osteoporosis without current pathological fracture, R97.21 - Rising PSA following treatment for malignant neoplasm of prostate, T38.7X5A - Adverse effect of androgens and anabolic congeners, initial encounter, Z19.2 - Hormone resistant malignancy status Medications: New Xgeva (denosumab) 120 mg (1.7 mL) subcut ONCE 1.7 mL 0RF NS C61 - Malignant neoplasm of prostate, C79.51 - Secondary malignant neoplasm of bone, M81.8 - Other osteoporosis without current pathological fracture, R97.21 - Rising PSA following treatment for malignant neoplasm of prostate, T38.7X5A - Adverse effect of androgens and anabolic congeners, initial encounter, Z19.2 - Hormone resistant malignancy status
== END 2023-10-10 10:20 | disposition home or self-care (01) ==
PROVIDERS: PCP Student in an Organized Health Care Education/Training Program; Visit Provider Urology
DX: M81.8 Other osteoporosis without current pathological fracture (principal); T38.7X5A Adverse effect of androgens and anabolic congeners, initial encounter; C61 Malignant neoplasm of prostate; R97.21 Rising PSA following treatment for malignant neoplasm of prostate; Z19.2 Hormone resistant malignancy status; C79.51 Secondary malignant neoplasm of bone

== ENCOUNTER → 2023-10-10 08:43 | Outpatient (BNVA) | payer OTHER, SELFPAY | PROVIDERS: PCP Student in an Organized Health Care Education/Training Program; Visit Provider Urology | DX: C61 Malignant neoplasm of prostate (principal); C79.51 Secondary malignant neoplasm of bone; M81.8 Other osteoporosis without current pathological fracture; R97.21 Rising PSA following treatment for malignant neoplasm of prostate; T38.7X5A Adverse effect of androgens and anabolic congeners, initial encounter; Z19.2 Hormone resistant malignancy status | CPT/HCPCS: 96372; J0897 ==

== ENCOUNTER 2023-11-07 08:27 | Outpatient (AMB) | payer OTHER, SELFPAY ==
--- NOTE | 2023-11-07 08:47 | AM.OFFVISNUR ---
Intake Visit Reasons: xgeva injection(1st Dose) Allergies No Known Allergies Allergy (Verified 09/09/23 09:16) Office Meds Xgeva 120 mg/1.7 mL (70 mg/mL) subcutaneous solution Performing Provider: Martin Dunn MD Performing Location: [facility] [place] [facility] Administered by: Everett Brandt LPN on 11/07/23 08:47 Dose Route Admin Location Dispensed Lot Number Expiration Date [facility] Hob Grinder 120 mg subcut right arm 1.7 mL [id number] 04/13/26 62443-774-14 [facility] Assessment & Plan Assessment & Plan Orders: Orders AMB Denosumab Injection Practice Supplied Today C61 - Malignant neoplasm of prostate, C79.51 - Secondary malignant neoplasm of bone, M81.8 - Other osteoporosis without current pathological fracture, T38.7X5A - Adverse effect of androgens and anabolic congeners, initial encounter
== END 2023-11-07 11:02 | disposition home or self-care (01) ==
PROVIDERS: PCP Student in an Organized Health Care Education/Training Program; Visit Provider Urology
DX: C61 Malignant neoplasm of prostate (principal); C79.51 Secondary malignant neoplasm of bone; M81.8 Other osteoporosis without current pathological fracture; T38.7X5A Adverse effect of androgens and anabolic congeners, initial encounter

== ENCOUNTER → 2023-11-07 08:27 | Outpatient (BNVA) | payer OTHER, SELFPAY | PROVIDERS: PCP Student in an Organized Health Care Education/Training Program; Visit Provider Urology | DX: C61 Malignant neoplasm of prostate (principal); C79.51 Secondary malignant neoplasm of bone; M81.8 Other osteoporosis without current pathological fracture; T38.7X5A Adverse effect of androgens and anabolic congeners, initial encounter | CPT/HCPCS: 96372; J0897 ==

== ENCOUNTER 2023-11-29 07:41 | Outpatient (REF) | payer OTHER, SELFPAY ==
[2023-11-29 11:56] LABS: Prostate Specific Antigen 174.66 ng/mL (<0.05-4.0)
[2023-12-06 01:53] LABS: Testosterone, Total <1 ng/dL (250-1100)
== END 2023-11-29 07:42 | disposition home or self-care (01) ==
LOC: HO.HMGCLDS 07:41
PROVIDERS: PCP Nurse Practitioner Family; Visit Provider Urology
DX: C61 Malignant neoplasm of prostate (principal); R97.21 Rising PSA following treatment for malignant neoplasm of prostate; Z19.2 Hormone resistant malignancy status; Z12.5 Encounter for screening for malignant neoplasm of prostate
CPT/HCPCS: 36415; 84153; 84403

== ENCOUNTER 2023-12-01 08:35 | Outpatient (AMB) | payer OTHER, SELFPAY ==
--- NOTE | 2023-12-01 09:06 | AM.OFFVISNUR ---
Intake Visit Reasons: GnRH Allergies No Known Allergies Allergy (Verified 09/09/23 09:16) Office Meds Eligard (6 month) 45 mg (6 month) subcutaneous syringe Performing Provider: Martin Dunn MD [place] [facility] [place] [facility] Administered by: Everett Brandt LPN on 12/01/23 09:06 Dose Route Admin Location Dispensed Lot Number Expiration Date [facility] P D Driver 45 mg subcut left arm 45 mg [id number] 05/12/25 53081-401-05 [employer]. Assessment & Plan Assessment & Plan Orders: Orders AMB Leuprolide Injection - Practice Supplied Today C61 - Malignant neoplasm of prostate, C79.51 - Secondary malignant neoplasm of bone, R97.21 - Rising PSA following treatment for malignant neoplasm of prostate, Z19.2 - Hormone resistant malignancy status Medications: New Eligard (6 month) (leuprolide acetate (6 month)) 45 mg subcut ONCE 1 ea 0RF NS C61 - Malignant neoplasm of prostate, C79.51 - Secondary malignant neoplasm of bone, R97.21 - Rising PSA following treatment for malignant neoplasm of prostate, Z19.2 - Hormone resistant malignancy status
== END 2023-12-01 09:30 | disposition home or self-care (01) ==
PROVIDERS: PCP Student in an Organized Health Care Education/Training Program; Visit Provider Urology
DX: C61 Malignant neoplasm of prostate (principal); R97.21 Rising PSA following treatment for malignant neoplasm of prostate; Z19.2 Hormone resistant malignancy status; C79.51 Secondary malignant neoplasm of bone

== ENCOUNTER → 2023-12-01 08:35 | Outpatient (BNVA) | payer OTHER, SELFPAY | PROVIDERS: PCP Student in an Organized Health Care Education/Training Program; Visit Provider Urology | DX: C61 Malignant neoplasm of prostate (principal); C79.51 Secondary malignant neoplasm of bone; R97.21 Rising PSA following treatment for malignant neoplasm of prostate; Z19.2 Hormone resistant malignancy status | CPT/HCPCS: 96402; J9217 ==

== ENCOUNTER 2023-12-06 08:51 | Outpatient (AMB) | payer OTHER, SELFPAY ==
--- NOTE | 2023-12-06 08:47 | MHC.OFFVIS ---
Intake Visit Reasons: [phone] Intake Note: Patient is present for F/U [phone] Urology Medication:TAMSULSOIN, TADALAFIL Antibiotic Allergy:NONE Blood Thinner:NONE Infant Teacher Required: No Allergies No Known Allergies Allergy (Verified 12/06/23 08:49) Medication List - Last Reconciled 12/06/23 by Martin Dunn MD abiraterone 500 mg PO DAILY albuterol sulfate 90 mcg/actuation 1 puff inhalation Q6H PRN amiodarone 200 mg PO DAILY amlodipine 5 mg PO DAILY@1700 apixaban 5 mg PO BID calcium carbonate (Calcium 500) 500 mg PO BID 90 days cholecalciferol (vitamin D3) 400 units PO DAILY 90 days fluticasone propion-salmeterol 250-50 mcg/dose (Wixela Inhub) 1 inh inhalation BID furosemide 20 mg PO gabapentin 300 mg PO TID PRN leuprolide acetate (6 month) (Eligard) 45 mg subcut [id number] losartan 25 mg PO DAILY metoprolol succinate ER 25 mg PO DAILY oxycodone 5 mg PO BID 30 days oxycodone 5 mg PO BID 4 days prednisone 5 mg PO BID 7 days rosuvastatin 20 mg PO BEDTIME tadalafil 20 mg PO DAILY 30 days tamsulosin 0.8 mg (2 x 0.4 mg) PO DAILY@1700 90 days umeclidinium 62.5 mcg/actuation 1 inh inhalation DAILY HPI Comments Details: Tolu is a very pleasant male. He is a patient of Dr Damon. 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 Remains with widespread metastatic tumor. Baseline receiving GnRH Has adapted well to abiraterone 1000 mg - minimal fatigue 06/04 PSA 14, T <1 DEXA with osteroporosis Bone Scan metastatic prostate cancer - Widespread metastatic tumor involvement of bone Continues with abiraterone 500 mg, prednisone 5 mg b.i.d., Xgeva monthly Has referral for Medical Oncology at [facility] - needs to f/u Previously has not tolerated full-dose antiandrogens well - had fatigue GnRH 02/03 significant reduction in PSA. Currently 11 Diagnosis metastatic hormone non-sensitive prostate cancer. Since initiation of abiraterone back pain has significantly resolved Initiate Xgeva monthly Labs and imaging in 3 months with GnRH Continue abiraterone 12/04 Biochemical recurrent prostate cancer - GnRH - PET-CT metastatic disease in the spine - add abiraterone with prednisone Last GnRH 12/04 - evidence of metastatic disease Prostate cancer: High-grade prostate cancer July 2018 initial therapy XRT with hormones - 10/01 - rising PSA - therapy GnRH + oral anti androgen PSA 04/03 PSA 30, 07/02 47, 10/01 <0.05, 01/01 <0.1, 04/04 <0.05 T <1, 07/03 <0.1 T <1. 10/02 <0.1, 01/02 <0.1 T <1, 04/05 0.2 T 79, 07/04 P 2.76 T 111, 11/03 190 T111, 02/03 11 Prostate cancer was diagnosed July 2018 Dr Dunn. Diagnosis was reached by needle biopsy, for elevated PSA, PSA at diagnosis 49,size at TRUS 35cc. The Clau grade is July 2018 5/ cores positive 2/ , 4+4 = 8 CHIRINOS, LMM 3/12 , 4+3 = 7, LMB, LLB, LML 5-50% of cores. TNM Classification of Malignant Tumours (TNM) T1c, Group 4. The D'Vicky (NCCN) risk category is High Risk (PSA > 20, Gl 8+, T3), Group 4. Initial therapy included XRT with 18 months GnRH Imaging 09/05/18 GnRH 6M 12/[address] Wade at [facility] Recent labs included 07/01 PSA 0.05 08/31 PSA 0.3, T 6 - no GnRH 09/30 PSA 1.3 T 8 - 03/02 PSA 16 T 94 Recent imaging included 08/30 , a bone scan nonspecific changes consistent with arthritis 08/30 , a CT (computed tomography) scan, with no evidence of metastasis. - 04/03 bone scan negative - arthritis on right shoulder - 04/03 CT scan no evidence of metastatic disease Therapy for rising PSA after radiation 07/02 07/02 GnRH and Xtandi 01/01 GnRH and Zytiga 04/04 GnRH Therapeutic plan continue hormonal control and surveillance PFS Medical History Current use of fpc anticoagulation Atrial fibrillation History of radiation therapy History of prostate cancer Hypercholesterolemia Pre-diabetes COPD (chronic obstructive pulmonary disease) Bladder outlet obstruction Weak urinary stream Nocturia Surgical History H/O tooth extraction History of prostate biopsy Family History Father Brain cancer Mother Pancreatic cancer Brother Drug overdose Brother Drug overdose Brother Pancreatic cancer Brother No problems noted. Brother No problems noted. Sister No problems noted. Social History Household Members: None Housing: Apartment Housing Other:: Lives in a 1 room efficiency Are you a primary care team assistant to a significant other at home: No Do you presently have visiting nurse or other home services: No Alcohol intake: former Year quit: 2019 Patient Tobacco Use Status: Former Tobacco user Years Smoked: 38 service: No Current occupational status: retired Telehealth Telehealth Telehealth Platform: Strikingly Location of provider rendering services: practice address Location of patient: other Patient Identification confirmed using: Name, : Yes Telehealth method: video Patient verbally consented to treatment: Yes Patient verbally consented to billing insurance company: Yes Patient informed of any privacy concerns related to visit: Yes Minutes spent on Phone/Video with Pt.: 15 Assessment & Plan Assessment & Plan (1) Osteoporosis due to androgen therapy: Code(s): M81.8 - Other osteoporosis without current pathological fracture; T38.7X5A - Adverse effect of androgens and anabolic congeners, initial encounter Category: Medical (2) 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: Code(s): C61 - Malignant neoplasm of prostate; R97.21 - Rising PSA following treatment for malignant neoplasm of prostate; Z19.2 - Hormone resistant malignancy status Category: Medical (3) Prostate cancer metastatic to bone: Code(s): C61 - Malignant neoplasm of prostate; C79.51 - Secondary malignant neoplasm of bone Category: Medical Plan Continue with monthly Xgeva Six-month fully GnRH Will check in with him in three-month Emphasized he needs to keep follow-up with Oncology next Tuesday Patient Instructions: Imaging studies, laboratory and physical exam results were discussed and reviewed in detail. No major barriers to patient understanding were identified. An opportunity to ask questions regarding the treatment plan was provided. All questions were answered. The patient expressed understanding and agreement with the above treatment plan. The patient is aware they should contact our office by phone for worsening of their current condition or the appearance of new urologic symptoms. Compliance is encouraged with any medications and followup testing that is ordered. It is a privilege to participate in the urologic care of your patient. If you have any questions or concerns regarding treatment for the above conditions, or other urologic issues, please do not hesitate to contact me. The office telephone contact is [phone]. This note is constructed using voice recognition software. While every effort has been made to ensure accuracy rn cardiovascular errors may have been included. 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
== END 2023-12-06 09:40 | disposition home or self-care (01) ==
LOC: HO.HUSH 08:51
PROVIDERS: PCP Student in an Organized Health Care Education/Training Program; Visit Provider Urology
DX: M81.8 Other osteoporosis without current pathological fracture (principal); T38.7X5A Adverse effect of androgens and anabolic congeners, initial encounter; C61 Malignant neoplasm of prostate; R97.21 Rising PSA following treatment for malignant neoplasm of prostate; Z19.2 Hormone resistant malignancy status; C79.51 Secondary malignant neoplasm of bone
CPT/HCPCS: 99213

== ENCOUNTER → 2023-12-06 08:51 | Outpatient (BNVA) | payer OTHER, SELFPAY | PROVIDERS: PCP Student in an Organized Health Care Education/Training Program; Visit Provider Urology ==

== ENCOUNTER 2023-12-16 11:16 | Outpatient (AMB) | payer OTHER, SELFPAY ==
--- NOTE | 2023-12-16 11:46 | AM.OFFVISNUR ---
Intake Visit Reasons: xgeva injection(PA Set) Allergies No Known Allergies Allergy (Verified 12/06/23 08:49) Office Meds Xgeva 120 mg/1.7 mL (70 mg/mL) subcutaneous solution Performing Provider: Martin Dunn MD [facility] Administered by: Everett Brandt LPN on 12/16/23 11:46 Dose Route Admin Location Dispensed Lot Number Expiration Date [facility] Specialist 120 mg subcut right arm 1.7 mL [id number] 06/11/26 50320-903-93 [employer]GEN Assessment & Plan Assessment & Plan Orders: Orders AMB Denosumab Injection Practice Supplied Today C61 - Malignant neoplasm of prostate, C79.51 - Secondary malignant neoplasm of bone, M81.8 - Other osteoporosis without current pathological fracture, R97.21 - Rising PSA following treatment for malignant neoplasm of prostate, T38.7X5A - Adverse effect of androgens and anabolic congeners, initial encounter, Z19.2 - Hormone resistant malignancy status Medications: New Xgeva (denosumab) 120 mg (1.7 mL) subcut ONCE 1.7 mL 0RF NS C61 - Malignant neoplasm of prostate, C79.51 - Secondary malignant neoplasm of bone, M81.8 - Other osteoporosis without current pathological fracture, R97.21 - Rising PSA following treatment for malignant neoplasm of prostate, T38.7X5A - Adverse effect of androgens and anabolic congeners, initial encounter, Z19.2 - Hormone resistant malignancy status
== END 2023-12-16 13:34 | disposition home or self-care (01) ==
PROVIDERS: PCP Student in an Organized Health Care Education/Training Program; Visit Provider Urology
DX: M81.8 Other osteoporosis without current pathological fracture (principal); T38.7X5A Adverse effect of androgens and anabolic congeners, initial encounter; C61 Malignant neoplasm of prostate; R97.21 Rising PSA following treatment for malignant neoplasm of prostate; Z19.2 Hormone resistant malignancy status; C79.51 Secondary malignant neoplasm of bone

== ENCOUNTER → 2023-12-16 11:16 | Outpatient (BNVA) | payer OTHER, SELFPAY | PROVIDERS: PCP Student in an Organized Health Care Education/Training Program; Visit Provider Urology | DX: C61 Malignant neoplasm of prostate (principal); C79.51 Secondary malignant neoplasm of bone; M81.8 Other osteoporosis without current pathological fracture; R97.20 Elevated prostate specific antigen [PSA]; T38.7X5A Adverse effect of androgens and anabolic congeners, initial encounter; X58.XXXA Exposure to other specified factors, initial encounter; Z19.2 Hormone resistant malignancy status | CPT/HCPCS: 96372; J0897 ==